=== PATIENT | male | born 1975 | race African-American/Black ===

== ENCOUNTER 2017-08-23 15:35 | Inpatient (IN) ==
[2017-08-23] MEDS ORDERED: SODIUM CHLORIDE 0.9% 500 ML IV STA (17:09)
[2017-08-23] MEDS ORDERED: ONDANSETRON 4 MG/2 ML VIAL IV STA (17:09)
[2017-08-23] MEDS ORDERED: PANTOPRAZOLE 40 MG VIAL IV STA (17:09)
[2017-08-23] MEDS ORDERED: ONDANSETRON 4 MG/2 ML VIAL ONE (17:19)
[2017-08-23] MEDS ORDERED: PANTOPRAZOLE 40 MG VIAL IV ONE (17:20)
[2017-08-23 17:28] LABS: Basophils % 0.3 % (0.0-0.8); Eosinophils % 0.5 % (0.00-10.9); Hematocrit 22.8 VOL% (42.0-52.0); Hemoglobin 6.9 GM/DL (14.0-18.0); Immature Granulocytes % 0.3 %; Immature Granulocytes Absolute 0.02 #; Lymphocytes # 1.9 10*3/uL (1.4-4.0); Lymphocytes % 30.5 % (21.2-54.2); Mean Corpuscular HGB Conc 30.3 GM/DL (32-36); Mean Corpuscular Hemoglobin 26 PG (27-34); Mean Corpuscular Volume 87.4 FL (87-102); Mean Platelet Volume 10.7 FL (9.6-12.0); Monocytes # 0.5 10*3/uL (0.11-0.8); Monocytes % 8.2 % (1.7-12.7); Neutrophils # 3.8 10*3/uL (1.4-7.4); Neutrophils % 60.2 % (38.7-73.9); Platelet Count 146 T/CUMM (130-400); Red Blood Count 2.61 MC/CUMM (3.8-5.5); Red Cell Distribution Width 18.1 % (9.3-17.3); White Blood Count 6.3 T/CUMM (4-12)
[2017-08-23 17:35] LABS: INR 1.2; PT Patient Result 12.7 SECS
[2017-08-23 18:03] LABS: Alanine Aminotransferase 16 U/L (16-61); Albumin 3.7 G/DL (3.4-5.0); Alkaline Phosphatase 102 U/L (45-117); Aspartate Amino Transferase 52 U/L (0-37); Blood Urea Nitrogen 24 MG/DL (7-18); Calcium 8.5 MG/DL (8.5-10.1); Glucose 99 MG/DL (74-106); Osmolality,Calculated 271.2 MOS/KG (273-304); Potassium 4.4 MMOL/L (3.5-5.1); Sodium 134 MMOL/L (136-145); Troponin I Only < 0.015 NG/ML (0.00-0.045)
[2017-08-23 18:09] LABS: Ammonia 33 UMOL/L (11-32)
[2017-08-23] MEDS ORDERED: THIAMINE INJ 100 MG, FOLIC ACID INJ 1 MG, MULTIVITAMIN INJ 10 ML in SODIUM CHLORIDE 0.9... IV ONE (18:57)
[2017-08-23] MEDS ORDERED: ONDANSETRON 4 MG/2 ML VIAL IV PRN (19:09)
[2017-08-23] MEDS ORDERED: ACETAMINOPHEN 325 MG TABLET PO PRN (19:09)
[2017-08-23] MEDS ORDERED: LORazepam 2 MG/1 ML VIAL IV PRN (19:19)
[2017-08-23] MEDS ORDERED: SODIUM CHLORIDE 0.9% 1,000 ML IV SCH (19:30)
[2017-08-23] MEDS ORDERED: SODIUM CHLORIDE 0.9% 1,000 ML IV PRN (19:38)
[2017-08-23 19:51] LABS: % Iron Saturation 47.2 % (18-50); Ferritin 17.2 ng/ml (26-388)
[2017-08-23 20:10] LABS: Thyroid Stimulating Hormone 1.35 uIU/ml (0.358-3.74)
[2017-08-23 20:14] LABS: Folate 13.7 NG/ML (5.4-24.0)
[2017-08-23] MEDS: OCTREOTIDE 500 MCG in SODIUM CHLORIDE 0.9% 100 ML IV SCH (21:45)
[2017-08-23] MEDS: PANTOPRAZOLE 40 MG VIAL IV SCH (23:10)
[2017-08-24] MEDS: OCTREOTIDE 500 MCG in SODIUM CHLORIDE 0.9% 100 ML IV SCH ×2 (07:09→17:09)
[2017-08-24 07:23] LABS: Hematocrit 28.3 VOL% (42.0-52.0)
[2017-08-24 08:02] LABS: Albumin 3.1 G/DL (3.4-5.0); Bilirubin,Total 4.1 MG/DL (0.2-1.0); Calcium 8.2 MG/DL (8.5-10.1); Osmolality,Calculated 274.8 MOS/KG (273-304); Potassium 4.1 MMOL/L (3.5-5.1); Risk Ratio 2.48; Total Protein 7.2 G/DL (6.4-8.3)
[2017-08-24] MEDS: PANTOPRAZOLE 40 MG VIAL IV SCH ×2 (08:43→20:28)
[2017-08-24] MEDS ORDERED: THIAMINE INJ 100 MG, FOLIC ACID INJ 1 MG in SODIUM CHLORIDE 0.9% 1,000 ML IV SCH (09:00)
[2017-08-24] MEDS ORDERED: INFLUENZA VIRUS VACCINE 0.5 ML SYRINGE IM ONE (09:00)
[2017-08-24] MEDS: THIAMINE INJ 100 MG, FOLIC ACID INJ 1 MG in SODIUM CHLORIDE 0.9% 1,000 ML IV SCH (10:28)
[2017-08-24 13:55] LABS: Hematocrit 30.1 VOL% (42.0-52.0); Hemoglobin 9.5 GM/DL (14.0-18.0)
[2017-08-24] MEDS ORDERED: HYDROmorphone 2 MG/1 ML VIAL IV PRN (15:46)
[2017-08-24] MEDS ORDERED: traMADol 50 MG TABLET PO PRN (17:46)
[2017-08-25] MEDS: OCTREOTIDE 500 MCG in SODIUM CHLORIDE 0.9% 100 ML IV SCH (03:19)
[2017-08-25 06:41] LABS: Albumin 3.2 G/DL (3.4-5.0); Bilirubin,Total 2.8 MG/DL (0.2-1.0); Calcium 8.3 MG/DL (8.5-10.1); Osmolality,Calculated 271.8 MOS/KG (273-304); Potassium 3.8 MMOL/L (3.5-5.1); Total Protein 7.2 G/DL (6.4-8.3)
[2017-08-25] MEDS: PANTOPRAZOLE 40 MG VIAL IV SCH ×2 (08:53→21:25)
[2017-08-25 09:16] LABS: Hematocrit 31.4 VOL% (42.0-52.0); Hemoglobin 10.2 GM/DL (14.0-18.0)
[2017-08-25] MEDS: THIAMINE INJ 100 MG, FOLIC ACID INJ 1 MG in SODIUM CHLORIDE 0.9% 1,000 ML IV SCH (10:01)
[2017-08-25] MEDS ORDERED: LIDOCAINE 2% 5 ML VIAL ONE (13:22)
[2017-08-26] MEDS: PANTOPRAZOLE 40 MG VIAL IV SCH (08:59)
[2017-08-26 09:08] VITALS: BP 111/56
== END 2017-08-26 15:10 | disposition home or self-care (01) | DRG 432 ==
LOC: N.ED 15:35 → N.EDINP 19:09 → N.CC 19:22 → N.4E 08-24 14:08
PROVIDERS: ADMIT Internal Medicine; ATTEND Internal Medicine
PROC: EGDWEBL (ICD-10-PCS; 2017-08-24 11:00)

== ENCOUNTER 2017-11-16 11:02 | Inpatient (IN) ==
[2017-11-16] MEDS ORDERED: PANTOPRAZOLE INJ 80 MG in SODIUM CHLORIDE 0.9% 100 ML IV STA (11:18)
[2017-11-16] MEDS ORDERED: SODIUM CHLORIDE 0.9% 1,000 ML IV STA (11:18)
[2017-11-16] MEDS ORDERED: THIAMINE INJ 100 MG, FOLIC ACID INJ 1 MG, MAGNESIUM SULF INJ 2 GM, MULTIVITAMIN INJ 10 ... IV ONE (11:23)
[2017-11-16 11:41] LABS: Eosinophils % 0.1 % (0.00-10.9); Immature Granulocytes % 0.7 %; Immature Granulocytes Absolute 0.05 #; Neutrophils # 5.4 10*3/uL (1.4-7.4)
[2017-11-16 11:46] LABS: Basophils % 0.4 % (0.0-0.8); Hematocrit 20.6 VOL% (42.0-52.0); INR 1.3; Lymphocytes # 1.1 10*3/uL (1.4-4.0); Lymphocytes % 15.3 % (21.2-54.2); Mean Corpuscular Hemoglobin 30 PG (27-34); Monocytes # 0.7 10*3/uL (0.11-0.8); Monocytes % 9.2 % (1.7-12.7); Neutrophils % 74.3 % (38.7-73.9); PT Patient Result 13.5 SECS; Platelet Count 111 T/CUMM (130-400); Red Blood Count 2.34 MC/CUMM (3.8-5.5); Red Cell Distribution Width 25.9 % (9.3-17.3); White Blood Count 7.3 T/CUMM (4-12)
[2017-11-16 11:55] LABS: Bilirubin,Total 3.9 MG/DL (0.2-1.0); Calcium 7.9 MG/DL (8.5-10.1); Osmolality,Calculated 281.4 MOS/KG (273-304); Potassium 4.4 MMOL/L (3.5-5.1); Total Protein 7.8 G/DL (6.4-8.3)
[2017-11-16 12:03] LABS: Hypochromasia 1+
[2017-11-16 12:04] LABS: Giant Platelets Few; Platelet Estimate Decreased
[2017-11-16] MEDS ORDERED: ALBUTEROL 2.5 MG/3 ML NEB RESP TX PRN (13:19)
[2017-11-16] MEDS ORDERED: ONDANSETRON 4 MG/2 ML VIAL IV PRN (13:19)
[2017-11-16] MEDS: PANTOPRAZOLE 40 MG VIAL IV SCH (13:48)
[2017-11-16] MEDS ORDERED: SODIUM CHLORIDE 0.9% 1,000 ML IV PRN (13:49)
[2017-11-16] MEDS ORDERED: MAGNESIUM SULF RIDER 2 GM in PREMIX 1 EACH IV ONE (13:58)
[2017-11-16] MEDS ORDERED: LORazepam 2 MG/1 ML VIAL IV PRN (13:59)
[2017-11-16] MEDS: LACTATED RINGERS 1,000 ML IV SCH ×2 (15:15→23:16)
[2017-11-16] MEDS: OCTREOTIDE 500 MCG in SODIUM CHLORIDE 0.9% 100 ML IV SCH (16:56)
[2017-11-16 19:49] LABS: Hematocrit 18.9 VOL% (42.0-52.0)
[2017-11-16 19:54] LABS: Hemoglobin 5.9 GM/DL (14.0-18.0)
[2017-11-16] MEDS: chlordiazePOXIDE 10 MG CAPSULE PO PRN (21:45)
[2017-11-17] MEDS: OCTREOTIDE 500 MCG in SODIUM CHLORIDE 0.9% 100 ML IV SCH ×2 (02:49→14:52)
[2017-11-17 03:12] LABS: Basophils % 0.6 % (0.0-0.8); Eosinophils % 0.3 % (0.00-10.9); Hematocrit 22.4 VOL% (42.0-52.0); Hemoglobin 7.4 GM/DL (14.0-18.0); Immature Granulocytes % 0.4 %; Immature Granulocytes Absolute 0.03 #; Lymphocytes # 1.5 10*3/uL (1.4-4.0); Lymphocytes % 21.7 % (21.2-54.2); Mean Corpuscular Hemoglobin 30 PG (27-34); Mean Corpuscular Volume 90.7 FL (87-102); Mean Platelet Volume 10.4 FL (9.6-12.0); Monocytes # 0.8 10*3/uL (0.11-0.8); Monocytes % 11.1 % (1.7-12.7); Neutrophils # 4.5 10*3/uL (1.4-7.4); Neutrophils % 65.9 % (38.7-73.9); Platelet Count 85 T/CUMM (130-400); Red Blood Count 2.47 MC/CUMM (3.8-5.5); Red Cell Distribution Width 22.5 % (9.3-17.3); White Blood Count 6.9 T/CUMM (4-12)
[2017-11-17 03:18] LABS: INR 1.2; PT Patient Result 12.7 SECS
[2017-11-17 03:34] LABS: Albumin 2.7 G/DL (3.4-5.0); Bilirubin,Total 4.5 MG/DL (0.2-1.0); Calcium 7.7 MG/DL (8.5-10.1); Osmolality,Calculated 273.8 MOS/KG (273-304); Potassium 4.4 MMOL/L (3.5-5.1); Total Protein 7.2 G/DL (6.4-8.3)
[2017-11-17] MEDS ORDERED: SODIUM CHLORIDE 0.9% 1,000 ML IV PRN (03:37)
[2017-11-17 03:50] LABS: Hypochromasia 2+; Microcytosis 2+; Platelet Estimate Decreased; Polychromasia Slight
[2017-11-17 03:51] LABS: Target Cells Few
[2017-11-17] MEDS: THIAMINE 200 MG/2 ML VIAL IV SCH (09:49)
[2017-11-17] MEDS: chlordiazePOXIDE 10 MG CAPSULE PO PRN (09:50)
[2017-11-17] MEDS ORDERED: PROPOFOL 200 MG/20 ML VIAL IV ONE (10:00)
[2017-11-17] MEDS ORDERED: LIDOCAINE 100 MG/5 ML SYRINGE ONE (10:00)
[2017-11-17] MEDS ORDERED: diphenhydrAMINE CAP 25 MG CAPSULE PO ONE (10:54)
[2017-11-17] MEDS: LACTATED RINGERS 1,000 ML IV SCH ×2 (11:50→15:00)
[2017-11-17] MEDS ORDERED: GLYCOPYRROLATE 0.4 MG/2 ML VIAL ONE (12:41)
[2017-11-17] MEDS ORDERED: fentaNYL 100 MCG/2 ML VIAL ONE (12:41)
[2017-11-17 14:33] LABS: Hematocrit 27.4 VOL% (42.0-52.0); Hemoglobin 9.3 GM/DL (14.0-18.0)
[2017-11-17] MEDS: PANTOPRAZOLE 40 MG VIAL IV SCH (14:53)
[2017-11-17 20:19] LABS: Hematocrit 27.8 VOL% (42.0-52.0); Hemoglobin 9.5 GM/DL (14.0-18.0)
[2017-11-18] MEDS: OCTREOTIDE 500 MCG in SODIUM CHLORIDE 0.9% 100 ML IV SCH ×2 (01:50→12:17)
[2017-11-18] MEDS: LACTATED RINGERS 1,000 ML IV SCH ×2 (01:50→10:57)
[2017-11-18 05:50] LABS: Basophils # 0.1 10*3/uL (0.0-0.2); Basophils % 0.8 % (0.0-0.8); Eosinophils # 0.2 10*3/uL (0.0-0.87); Eosinophils % 2.3 % (0.00-10.9); Hematocrit 29.6 VOL% (42.0-52.0); Hemoglobin 9.8 GM/DL (14.0-18.0); Immature Granulocytes % 0.4 %; Immature Granulocytes Absolute 0.03 #; Lymphocytes # 1.3 10*3/uL (1.4-4.0); Lymphocytes % 17.5 % (21.2-54.2); Mean Corpuscular HGB Conc 33.1 GM/DL (32-36); Mean Corpuscular Hemoglobin 29 PG (27-34); Mean Corpuscular Volume 88.4 FL (87-102); Mean Platelet Volume 10.4 FL (9.6-12.0); Monocytes # 0.7 10*3/uL (0.11-0.8); Neutrophils # 5.1 10*3/uL (1.4-7.4); Platelet Count 109 T/CUMM (130-400); Red Blood Count 3.35 MC/CUMM (3.8-5.5); Red Cell Distribution Width 22.5 % (9.3-17.3); White Blood Count 7.4 T/CUMM (4-12)
[2017-11-18 06:28] LABS: Anisocytosis 1+; Hypochromasia 1+; Microcytosis 1+; Platelet Estimate Decreased
[2017-11-18 06:30] LABS: Albumin 2.8 G/DL (3.4-5.0); Bilirubin,Total 6.6 MG/DL (0.2-1.0); Calcium 8.7 MG/DL (8.5-10.1); Potassium 4.1 MMOL/L (3.5-5.1); Total Protein 7.6 G/DL (6.4-8.3)
[2017-11-18] MEDS: THIAMINE 200 MG/2 ML VIAL IV SCH (09:37)
[2017-11-18] MEDS: chlordiazePOXIDE 10 MG CAPSULE PO PRN ×2 (09:37→18:41)
[2017-11-18 12:47] LABS: Hematocrit 35.9 VOL% (42.0-52.0)
[2017-11-18 13:04] LABS: Hemoglobin 12.2 GM/DL (14.0-18.0)
[2017-11-18] MEDS: PANTOPRAZOLE 40 MG VIAL IV SCH (14:32)
[2017-11-18] MEDS ORDERED: ACETAMINOPHEN 325 MG TABLET PO PRN (21:49)
[2017-11-19 06:05] LABS: Basophils # 0.1 10*3/uL (0.0-0.2); Basophils % 0.7 % (0.0-0.8); Eosinophils # 0.2 10*3/uL (0.0-0.87); Eosinophils % 2.4 % (0.00-10.9); Hematocrit 28.5 VOL% (42.0-52.0); Hemoglobin 9.6 GM/DL (14.0-18.0); Immature Granulocytes % 0.4 %; Immature Granulocytes Absolute 0.03 #; Lymphocytes # 1.5 10*3/uL (1.4-4.0); Lymphocytes % 21.1 % (21.2-54.2); Mean Corpuscular HGB Conc 33.7 GM/DL (32-36); Mean Corpuscular Hemoglobin 30 PG (27-34); Monocytes # 0.9 10*3/uL (0.11-0.8); Monocytes % 12.8 % (1.7-12.7); Neutrophils # 4.5 10*3/uL (1.4-7.4); Neutrophils % 62.6 % (38.7-73.9); Platelet Count 129 T/CUMM (130-400); Red Blood Count 3.24 MC/CUMM (3.8-5.5); Red Cell Distribution Width 23.3 % (9.3-17.3); White Blood Count 7.2 T/CUMM (4-12)
[2017-11-19 06:40] LABS: Albumin 2.9 G/DL (3.4-5.0); Bilirubin,Total 5.9 MG/DL (0.2-1.0); Calcium 8.5 MG/DL (8.5-10.1); Osmolality,Calculated 271.8 MOS/KG (273-304); Potassium 3.8 MMOL/L (3.5-5.1); Total Protein 7.6 G/DL (6.4-8.3)
[2017-11-19 07:30] LABS: Platelet Estimate Decreased
[2017-11-19] MEDS: THIAMINE 200 MG/2 ML VIAL IV SCH (09:03)
[2017-11-19 11:49] VITALS: BP 106/70
[2017-11-19] MEDS: PANTOPRAZOLE 40 MG VIAL IV SCH (14:54)
== END 2017-11-19 13:50 | disposition home or self-care (01) | DRG 432 ==
LOC: EDUNIT# → EDBD → N.ED 11:02 → N.EDINP 12:59 → N.CC 15:15 → N.5E 11-18 12:13
PROVIDERS: ADMIT Family Medicine; ATTEND Family Medicine
PROC: EGDWEBL (ICD-10-PCS; 2017-11-17 13:50)

== ENCOUNTER 2018-11-24 18:54 | Inpatient (IN) ==
[2018-11-24] MEDS ORDERED: LORazepam 2 MG/1 ML VIAL ONE (19:12)
[2018-11-24] MEDS ORDERED: DIPH/TET/ACEL PERT BOOSTER VACCINE 0.5 ML VIAL IM ONE (19:25)
[2018-11-24] MEDS ORDERED: SODIUM CHLORIDE 0.9% 500 ML IV STA (19:25)
[2018-11-24 19:45] LABS: Basophils % 0.3 % (0.0-0.8); Eosinophils # 0.1 10*3/uL (0.0-0.87); Eosinophils % 0.5 % (0.00-10.9); Hematocrit 30.3 VOL% (42.0-52.0); Immature Granulocytes % 0.4 %; Immature Granulocytes Absolute 0.05 #; Lymphocytes # 4.3 10*3/uL (1.4-4.0); Mean Corpuscular HGB Conc 27.4 GM/DL (32-36); Mean Corpuscular Volume 91.5 FL (87-102); Monocytes % 8.5 % (1.7-12.7); Neutrophils % 54.3 % (38.7-73.9); Platelet Count 102 T/CUMM (130-400); Red Blood Count 3.31 MC/CUMM (3.8-5.5); Red Cell Distribution Width 24.4 % (9.3-17.3); White Blood Count 11.9 T/CUMM (4-12)
[2018-11-24 19:46] LABS: Hemoglobin 8.3 GM/DL (14.0-18.0)
[2018-11-24] MEDS ORDERED: THIAMINE INJ 100 MG, FOLIC ACID INJ 1 MG, MAGNESIUM SULF INJ 2 GM, MULTIVITAMIN INJ 10 ... IV ONE (19:53)
[2018-11-24 19:55] LABS: INR 1.3; PT Patient Result 14.1 SECS
[2018-11-24 20:03] LABS: Albumin 3.7 G/DL (3.4-5.0); Bilirubin,Total 2.4 MG/DL (0.2-1.0); Calcium 8.7 MG/DL (8.5-10.1); Osmolality,Calculated 269.8 MOS/KG (273-304); Total Protein 9.5 G/DL (6.4-8.3)
[2018-11-24] MEDS ORDERED: ONDANSETRON 4 MG/2 ML VIAL IV PRN (21:12)
[2018-11-24] MEDS ORDERED: NICOTINE 21 MG/24 HR PATCH TRANSDERM PRN (21:12)
[2018-11-24] MEDS ORDERED: ACETAMINOPHEN 325 MG TABLET PO PRN (21:12)
[2018-11-24] MEDS ORDERED: LORazepam 2 MG/1 ML VIAL IV PRN (21:12)
[2018-11-24] MEDS ORDERED: MORPHINE 4 MG/1 ML VIAL IV PRN (21:12)
[2018-11-24] MEDS ORDERED: chlordiazePOXIDE 25 MG CAPSULE PO PRN (21:12)
[2018-11-24] MEDS ORDERED: THIAMINE INJ 100 MG, FOLIC ACID INJ 1 MG, MULTIVITAMIN INJ 10 ML in SODIUM CHLORIDE 0.9... IV ONE (22:00)
[2018-11-24 22:33] LABS: Apearance,Urine CLEAR (Clear); Bilirubin,Urine Negative (Negative); Blood, Urine Negative (Negative); Glucose,Urine (UA) Negative (Negative); Ketones,Urine Negative (Negative); Mucus,Urine Occasional /LPF (Occasional); Nitrite,Urine Negative (Negative); Protein,Urine 30 MG/DL; RBC,Urine 2 /HPF (0-4); Sperm,Urine Occasional /HPF (Negative); Urine Color Yellow (Yellow); Urine Specific Gravity 1.011 (1.001-1.035); WBC,Urine 1 /HPF (0-6)
[2018-11-24 23:06] LABS: Barbiturates Screen,Urine Negative (Negative); Benzodiazepines Screen,Urine Negative (Negative); Cannabinoid Screen,Urine Negative (Negative); Opiate Screen,Urine Negative (Negative); Phencyclidine Screen,Urine Negative (Negative)
[2018-11-24] MEDS: SODIUM CHLORIDE 0.9% 1,000 ML IV SCH (23:28)
[2018-11-25] MEDS: SODIUM CHLORIDE 0.9% 1,000 ML IV SCH ×3 (06:30→16:33)
[2018-11-25] MEDS: levETIRAcetam 500 MG TABLET PO SCH (20:19)
[2018-11-25] MEDS: SODIUM CHLORIDE 1 GM TABLET PO SCH (20:19)
[2018-11-25] MEDS: CHLORHEXIDINE 0.12% ORAL RINSE 60 ML BOTTLE SWISH/SPIT SCH (20:19)
[2018-11-25] MEDS ORDERED: LEVETIRACETAM 1500 MG PO SCH (21:00)
[2018-11-25] MEDS ORDERED: THIAMINE INJ 100 MG, FOLIC ACID INJ 1 MG, MULTIVITAMIN INJ 10 ML in SODIUM CHLORIDE 0.9... IV ONE (21:00)
[2018-11-26] MEDS: SODIUM CHLORIDE 0.9% 1,000 ML IV SCH ×2 (00:53→06:34)
[2018-11-26 03:54] LABS: Basophils % 0.4 % (0.0-0.8); Eosinophils % 0.7 % (0.00-10.9); Hematocrit 25.4 VOL% (42.0-52.0); Hemoglobin 7.5 GM/DL (14.0-18.0); Immature Granulocytes % 0.4 %; Immature Granulocytes Absolute 0.02 #; Lymphocytes # 1.6 10*3/uL (1.4-4.0); Lymphocytes % 27.8 % (21.2-54.2); Mean Corpuscular HGB Conc 29.5 GM/DL (32-36); Mean Corpuscular Volume 86.4 FL (87-102); Mean Platelet Volume 10.2 FL (9.6-12.0); Monocytes % 7.9 % (1.7-12.7); Neutrophils % 62.8 % (38.7-73.9); Red Blood Count 2.94 MC/CUMM (3.8-5.5); White Blood Count 5.7 T/CUMM (4-12)
[2018-11-26 03:57] LABS: Platelet Count 63 T/CUMM (130-400)
[2018-11-26 04:18] LABS: Calcium 8.6 MG/DL (8.5-10.1); Osmolality,Calculated 274.5 MOS/KG (273-304)
[2018-11-26 04:54] LABS: Hypochromasia 2+; Platelet Estimate Decreased; Polychromasia Few
[2018-11-26] MEDS ORDERED: FOLIC ACID 1 MG TABLET PO SCH (09:00)
[2018-11-26] MEDS ORDERED: THIAMINE 100 MG TABLET PO SCH (09:00)
[2018-11-26] MEDS: SODIUM CHLORIDE 1 GM TABLET PO SCH (09:15)
[2018-11-26] MEDS: levETIRAcetam 500 MG TABLET PO SCH (09:15)
[2018-11-26] MEDS: CHLORHEXIDINE 0.12% ORAL RINSE 60 ML BOTTLE SWISH/SPIT SCH (09:15)
[2018-11-26 11:16] VITALS: BP 108/69
== END 2018-11-26 12:53 | disposition left against medical advice (07) | DRG 100 ==
LOC: EDUNIT# → EDBD → N.ED 18:54 → N.EDINP 21:12 → N.CC 22:06 → N.5E 11-26 10:47
PROVIDERS: ADMIT Internal Medicine; ATTEND Internal Medicine

== ENCOUNTER 2019-09-25 12:37 | Inpatient (IN) ==
[2019-09-25] MEDS ORDERED: levETIRAcetam 500 MG/5 ML VIAL IV ONE ×2 (12:57→12:59)
[2019-09-25 13:29] LABS: Eosinophils # 0.1 10*3/uL (0.0-0.87); Eosinophils % 0.5 % (0.00-10.9); Mean Corpuscular Volume 99.6 FL (87-102); Platelet Count 70 T/CUMM (130-400); Red Cell Distribution Width 22.1 % (9.3-17.3)
[2019-09-25 13:34] LABS: Basophils # 0.1 10*3/uL (0.0-0.2); Basophils % 0.4 % (0.0-0.8); Hematocrit 23.3 VOL% (42.0-52.0); Immature Granulocytes % 1.2 %; Immature Granulocytes Absolute 0.14 #; Lymphocytes # 3.6 10*3/uL (1.4-4.0); Lymphocytes % 32.3 % (21.2-54.2); Mean Corpuscular HGB Conc 26.2 GM/DL (32-36); Mean Platelet Volume 12.1 FL (9.6-12.0); Monocytes % 5.2 % (1.7-12.7); NRBC # 0.02 10*3/uL; Neutrophils % 60.4 % (38.7-73.9); Red Blood Count 2.34 MC/CUMM (3.8-5.5); White Blood Count 11.3 T/CUMM (4-12)
[2019-09-25 13:53] LABS: Hemoglobin 6.1 GM/DL (14.0-18.0)
[2019-09-25 13:55] LABS: Calcium 8.8 MG/DL (8.5-10.1); Osmolality,Calculated 268.2 MOS/KG (273-304)
[2019-09-25 14:19] LABS: % Iron Saturation 12.7 % (18-50); Ferritin 14.3 ng/ml (26-388)
[2019-09-25 14:27] LABS: Folate 12.9 NG/ML (5.4-24.0)
[2019-09-25 14:41] LABS: Anisocytosis 1+; Hypochromasia 2+; Microcytosis 2+; Ovalocytes Few; Polychromasia 1+
[2019-09-25 14:42] LABS: Platelet Estimate Decreased
[2019-09-25 14:55] LABS: Barbiturates Screen,Urine Negative (Negative); Benzodiazepines Screen,Urine Negative (Negative); Cannabinoid Screen,Urine Negative (Negative); Opiate Screen,Urine Negative (Negative); Phencyclidine Screen,Urine Negative (Negative)
[2019-09-25] MEDS ORDERED: LORazepam 2 MG/1 ML VIAL IV PRN (15:00)
[2019-09-25] MEDS ORDERED: THIAMINE 200 MG/2 ML VIAL IV ONE (15:03)
[2019-09-25] MEDS ORDERED: ACETAMINOPHEN 325 MG TABLET PO PRN (15:04)
[2019-09-25] MEDS ORDERED: ONDANSETRON 4 MG/2 ML VIAL IV PRN (15:04)
[2019-09-25] MEDS ORDERED: SODIUM CHLORIDE 0.9% 1,000 ML IV PRN (15:10)
[2019-09-25] MEDS: MULTIVITAMIN (CENTRUM) TABLET PO SCH (16:54)
[2019-09-25] MEDS: FOLIC ACID 1 MG TABLET PO SCH (16:54)
[2019-09-25] MEDS: SODIUM CHLORIDE 0.9% 1,000 ML IV SCH (16:54)
[2019-09-25] MEDS: levETIRAcetam 500 MG TABLET PO SCH (21:36)
[2019-09-25] MEDS: PANTOPRAZOLE 40 MG VIAL IV SCH (21:36)
[2019-09-25] MEDS: chlordiazePOXIDE 25 MG CAPSULE PO SCH (21:36)
[2019-09-26] MEDS ORDERED: diphenhydrAMINE CAP 25 MG CAPSULE PO PRN (04:55)
[2019-09-26] MEDS: SODIUM CHLORIDE 0.9% 1,000 ML IV SCH ×2 (05:14→20:25)
[2019-09-26 05:25] LABS: Basophils % 0.4 % (0.0-0.8); Eosinophils % 0.2 % (0.00-10.9); Hematocrit 25.3 VOL% (42.0-52.0); Hemoglobin 7.9 GM/DL (14.0-18.0); Immature Granulocytes % 0.4 %; Immature Granulocytes Absolute 0.02 #; Lymphocytes # 0.8 10*3/uL (1.4-4.0); Lymphocytes % 17.2 % (21.2-54.2); Mean Corpuscular HGB Conc 31.2 GM/DL (32-36); Mean Corpuscular Volume 88.5 FL (87-102); Monocytes % 6.8 % (1.7-12.7); Red Blood Count 2.86 MC/CUMM (3.8-5.5); White Blood Count 4.5 T/CUMM (4-12)
[2019-09-26 05:26] LABS: Platelet Count 33 T/CUMM (130-400)
[2019-09-26 05:32] LABS: Albumin 3.5 G/DL (3.4-5.0); Bilirubin,Total 4.8 MG/DL (0.2-1.0); Calcium 8.8 MG/DL (8.5-10.1); Osmolality,Calculated 263.4 MOS/KG (273-304); Total Protein 8.5 G/DL (6.4-8.3)
[2019-09-26 05:49] LABS: Hypochromasia 1+
[2019-09-26 05:50] LABS: Microcytosis 2+; Platelet Estimate Decreased; Polychromasia Slight; Target Cells Slight
[2019-09-26] MEDS: FOLIC ACID 1 MG TABLET PO SCH (10:05)
[2019-09-26] MEDS: THIAMINE 100 MG TABLET PO SCH (10:05)
[2019-09-26] MEDS: chlordiazePOXIDE 25 MG CAPSULE PO SCH ×3 (10:05→20:26)
[2019-09-26] MEDS: levETIRAcetam 500 MG TABLET PO SCH ×2 (10:05→20:26)
[2019-09-26] MEDS: MULTIVITAMIN (CENTRUM) TABLET PO SCH (10:05)
[2019-09-26] MEDS: PANTOPRAZOLE 40 MG VIAL IV SCH ×2 (10:06→20:26)
[2019-09-26] MEDS ORDERED: SODIUM CHLORIDE 0.9% 1,000 ML IV PRN (11:07)
[2019-09-26 11:25] LABS: Hematocrit 26.4 VOL% (42.0-52.0); Hemoglobin 8.1 GM/DL (14.0-18.0)
[2019-09-26] MEDS: HALOPERIDOL 5 MG/ML AMP IM PRN ×2 (11:46→17:40)
[2019-09-26 12:10] LABS: INR 1.3; PT Patient Result 13.3 SECS (9.8-11.9)
[2019-09-26 12:22] LABS: Hepatitis B Core IgM Quant 0.21 Index; Hepatitis B Surface Ag Result Negative (Negative); Hepatitis C Virus Ab Quant 0.25 Index; Hepatitis C Virus Ab Result Negative (Negative)
[2019-09-26 19:34] LABS: Hematocrit 23.6 VOL% (42.0-52.0); Hemoglobin 7.1 GM/DL (14.0-18.0)
[2019-09-27] MEDS: chlordiazePOXIDE 25 MG CAPSULE PO SCH ×2 (03:25→11:16)
[2019-09-27 05:53] LABS: Basophils % 0.2 % (0.0-0.8); Eosinophils # 0.1 10*3/uL (0.0-0.87); Eosinophils % 0.9 % (0.00-10.9); Hematocrit 22.9 VOL% (42.0-52.0); Hemoglobin 7.1 GM/DL (14.0-18.0); Immature Granulocytes % 0.5 %; Immature Granulocytes Absolute 0.03 #; Lymphocytes # 0.9 10*3/uL (1.4-4.0); Lymphocytes % 16.5 % (21.2-54.2); Mean Corpuscular Volume 89.5 FL (87-102); Monocytes % 8.4 % (1.7-12.7); Neutrophils % 73.5 % (38.7-73.9); Red Blood Count 2.56 MC/CUMM (3.8-5.5); White Blood Count 5.5 T/CUMM (4-12)
[2019-09-27 06:04] LABS: Platelet Count 35 T/CUMM (130-400)
[2019-09-27 06:17] LABS: Hypochromasia 2+; Microcytosis 1+; Platelet Estimate Decreased
[2019-09-27 06:26] LABS: Calcium 8.4 MG/DL (8.5-10.1); Osmolality,Calculated 277.5 MOS/KG (273-304)
[2019-09-27] MEDS: SODIUM CHLORIDE 0.9% 1,000 ML IV SCH (06:31)
[2019-09-27] MEDS ORDERED: LACTATED RINGERS 1,000 ML IV SCH (08:00)
[2019-09-27] MEDS ORDERED: LIDOCAINE 2% 5 ML VIAL ONE (09:00)
[2019-09-27] MEDS ORDERED: LACTULOSE 20 GM/30 ML UDCUP PO SCH (09:00)
[2019-09-27] MEDS ORDERED: propofoL 200 MG/20 ML VIAL IV ONE (09:00)
[2019-09-27] MEDS: MULTIVITAMIN (CENTRUM) TABLET PO SCH (09:12)
[2019-09-27] MEDS: THIAMINE 100 MG TABLET PO SCH (09:13)
[2019-09-27] MEDS: FOLIC ACID 1 MG TABLET PO SCH (09:13)
[2019-09-27] MEDS: levETIRAcetam 500 MG TABLET PO SCH ×2 (09:23→21:22)
[2019-09-27] MEDS: PANTOPRAZOLE 40 MG VIAL IV SCH ×2 (09:23→21:20)
[2019-09-27 13:40] LABS: Hematocrit 24.9 VOL% (42.0-52.0); Hemoglobin 7.5 GM/DL (14.0-18.0)
[2019-09-27] MEDS ORDERED: BISACODYL 5 MG TABLET PO ONE (14:00)
[2019-09-27] MEDS: LORazepam 2 MG/1 ML VIAL IV PRN (17:16)
[2019-09-27] MEDS ORDERED: POLYETHYLENE GLYCOL POWDER 255 GM BOTTLE PO ONE (18:00)
[2019-09-27] MEDS ORDERED: LORazepam 2 MG/1 ML VIAL IV ONE (18:34)
[2019-09-27 20:08] LABS: Hematocrit 24.2 VOL% (42.0-52.0); Hemoglobin 7.4 GM/DL (14.0-18.0)
[2019-09-28] MEDS: SODIUM CHLORIDE 0.9% 1,000 ML IV SCH ×2 (01:46→12:18)
[2019-09-28] MEDS: LORazepam 2 MG/1 ML VIAL IV PRN ×3 (03:28→12:47)
[2019-09-28 05:38] LABS: Hemoglobin 7.1 GM/DL (14.0-18.0)
[2019-09-28 05:42] LABS: INR 1.3; PT Patient Result 13.6 SECS (9.8-11.9)
[2019-09-28] MEDS ORDERED: MAGNESIUM CITRATE 300 ML BOTTLE PO ONE (06:00)
[2019-09-28 08:24] LABS: Basophils % 0.4 % (0.0-0.8); Eosinophils # 0.1 10*3/uL (0.0-0.87); Eosinophils % 1.7 % (0.00-10.9); Hematocrit 25.5 VOL% (42.0-52.0); Hemoglobin 7.6 GM/DL (14.0-18.0); Immature Granulocytes % 0.2 %; Immature Granulocytes Absolute 0.01 #; Mean Corpuscular HGB Conc 29.8 GM/DL (32-36); Mean Corpuscular Volume 93.4 FL (87-102); Mean Platelet Volume 10.9 FL (9.6-12.0); Monocytes % 8.5 % (1.7-12.7); Neutrophils % 71.2 % (38.7-73.9); Platelet Count 51 T/CUMM (130-400); Red Blood Count 2.73 MC/CUMM (3.8-5.5); Red Cell Distribution Width 21.3 % (9.3-17.3); White Blood Count 5.4 T/CUMM (4-12)
[2019-09-28 08:37] LABS: Calcium 8.7 MG/DL (8.5-10.1); Osmolality,Calculated 272.7 MOS/KG (273-304)
[2019-09-28] MEDS ORDERED: PHENYLEPHRINE 1 MG/10 ML SYRINGE IV ONE (09:00)
[2019-09-28] MEDS ORDERED: LIDOCAINE 100 MG/5 ML SYRINGE ONE (09:00)
[2019-09-28] MEDS ORDERED: propofoL 200 MG/20 ML VIAL IV ONE (09:00)
[2019-09-28] MEDS: levETIRAcetam 500 MG TABLET PO SCH (11:18)
[2019-09-28] MEDS: MULTIVITAMIN (CENTRUM) TABLET PO SCH (11:18)
[2019-09-28] MEDS: FOLIC ACID 1 MG TABLET PO SCH (11:18)
[2019-09-28] MEDS: THIAMINE 100 MG TABLET PO SCH (11:18)
[2019-09-28] MEDS: PANTOPRAZOLE 40 MG VIAL IV SCH (11:19)
[2019-09-28] MEDS ORDERED: NICOTINE 14 MG/24 HR PATCH TRANSDERM SCH (11:32)
[2019-09-28 12:26] LABS: Hematocrit 24.1 VOL% (42.0-52.0); Hemoglobin 7.2 GM/DL (14.0-18.0)
[2019-09-28 14:27] LABS: Hematocrit 25.1 VOL% (42.0-52.0); Hemoglobin 7.5 GM/DL (14.0-18.0)
[2019-09-28 16:12] VITALS: BP 137/78
== END 2019-09-28 17:10 | disposition home or self-care (01) | DRG 441 ==
LOC: N.ED 12:37 → SUATTDRO 15:04 → N.EDINP 15:04 → N.3E 15:59
PROVIDERS: ADMIT Internal Medicine; ATTEND Internal Medicine

== ENCOUNTER 2019-12-04 18:50 | Inpatient (IN) ==
[2019-12-04 19:54] LABS: Basophils % 0.3 % (0.0-0.8); Hematocrit 23.5 VOL% (42.0-52.0); Hemoglobin 6.7 GM/DL (14.0-18.0); Immature Granulocytes % 0.8 %; Immature Granulocytes Absolute 0.07 #; Lymphocytes # 0.6 10*3/uL (1.4-4.0); Lymphocytes % 6.5 % (21.2-54.2); Mean Corpuscular HGB Conc 28.5 GM/DL (32-36); Mean Corpuscular Volume 83.6 FL (87-102); Mean Platelet Volume 9.7 FL (9.6-12.0); Monocytes % 9.2 % (1.7-12.7); Neutrophils % 83.2 % (38.7-73.9); Platelet Count 155 T/CUMM (130-400); Red Blood Count 2.81 MC/CUMM (3.8-5.5); White Blood Count 9.2 T/CUMM (4-12)
[2019-12-04 20:20] LABS: Albumin 3.4 G/DL (3.4-5.0); Bilirubin,Total 2.4 MG/DL (0.2-1.0); Calcium 8.9 MG/DL (8.5-10.1); Osmolality,Calculated 260.7 MOS/KG (273-304); Total Protein 9.6 G/DL (6.4-8.3)
[2019-12-04] MEDS ORDERED: SODIUM CHLORIDE 0.9% 1,000 ML IV STA (20:49)
[2019-12-05] MEDS ORDERED: GLUCAGON 1 MG VIAL IM PRN ×2 (01:00)
[2019-12-05] MEDS ORDERED: SODIUM CHLORIDE 0.9% 1,000 ML IV PRN (01:00)
[2019-12-05] MEDS ORDERED: ONDANSETRON 4 MG/2 ML VIAL IV PRN (01:00)
[2019-12-05] MEDS ORDERED: SODIUM CHLORIDE 0.9% 1,000 ML IV SCH (01:00)
[2019-12-05] MEDS ORDERED: DEXTROSE 50% 25 GM/50 ML VIAL IV PRN ×2 (01:00)
[2019-12-05 02:32] LABS: % Iron Saturation 6.3 % (18-50); Haptoglobin < 8.0 MG/DL (30-200); Iron 26 UG/DL (65-175); Iron Binding Capacity 411 UG/DL (250-450)
[2019-12-05 02:58] LABS: Apearance,Urine CLEAR (Clear); Bilirubin,Urine Negative (Negative); Blood, Urine Negative (Negative); Glucose,Urine (UA) Negative (Negative); Hyaline Casts,Urine 1 /LPF (0-3); Ketones,Urine Negative (Negative); Mucus,Urine Occasional /LPF (Occasional); Nitrite,Urine Negative (Negative); Protein,Urine Negative; RBC,Urine <1 /HPF (0-4); Urine Color Yellow (Yellow); Urine Specific Gravity 1.009 (1.001-1.035); WBC,Urine <1 /HPF (0-6)
[2019-12-05 06:21] LABS: Basophils % 0.4 % (0.0-0.8); Eosinophils % 0.3 % (0.00-10.9); Hematocrit 25.7 VOL% (42.0-52.0); Hemoglobin 7.6 GM/DL (14.0-18.0); Immature Granulocytes % 0.6 %; Immature Granulocytes Absolute 0.04 #; Lymphocytes % 14.8 % (21.2-54.2); Mean Corpuscular HGB Conc 29.6 GM/DL (32-36); Mean Corpuscular Volume 84.3 FL (87-102); Mean Platelet Volume 9.7 FL (9.6-12.0); Monocytes % 11.5 % (1.7-12.7); Neutrophils % 72.4 % (38.7-73.9); Platelet Count 124 T/CUMM (130-400); Red Blood Count 3.05 MC/CUMM (3.8-5.5); Red Cell Distribution Width 20.7 % (9.3-17.3); White Blood Count 6.9 T/CUMM (4-12)
[2019-12-05 06:34] LABS: INR 1.3; PT Patient Result 13.5 SECS (9.8-11.9); Partial Thromboplastin Time 30.2 SECS (23.9-33.8)
[2019-12-05 06:35] LABS: Albumin 3.2 G/DL (3.4-5.0); Calcium 8.7 MG/DL (8.5-10.1); Osmolality,Calculated 266.2 MOS/KG (273-304)
[2019-12-05 06:39] LABS: Hypochromasia 2+
[2019-12-05 06:40] LABS: Microcytosis 1+; Platelet Estimate Adequate; Target Cells Slight
[2019-12-05] MEDS ORDERED: levETIRAcetam 500 MG/5 ML VIAL IV ONE (08:48)
[2019-12-05] MEDS: levETIRAcetam 500 MG TABLET PO SCH ×2 (08:57→21:05)
[2019-12-05] MEDS: PANTOPRAZOLE 40 MG VIAL IV SCH ×2 (08:57→21:05)
[2019-12-05] MEDS: THIAMINE 200 MG/2 ML VIAL IV SCH (08:57)
[2019-12-05] MEDS: FOLIC ACID INJ 1 MG in SYRINGE 1 EACH IV SCH (09:19)
[2019-12-05 12:55] LABS: Hematocrit 27.4 VOL% (42.0-52.0)
[2019-12-05] MEDS: FERRIC GLUCONATE COMPLEX 125 MG in SODIUM CHLORIDE 0.9% 100 ML IV SCH (15:16)
[2019-12-05] MEDS: chlordiazePOXIDE 25 MG CAPSULE PO SCH ×2 (15:16→21:05)
[2019-12-05 16:51] LABS: Hematocrit 28.3 VOL% (42.0-52.0); Hemoglobin 8.1 GM/DL (14.0-18.0)
[2019-12-05 20:24] LABS: Hematocrit 26.6 VOL% (42.0-52.0); Hemoglobin 7.6 GM/DL (14.0-18.0)
[2019-12-06] MEDS ORDERED: chlordiazePOXIDE 25 MG CAPSULE PO SCH (07:49)
[2019-12-06 08:30] LABS: Basophils % 0.7 % (0.0-0.8); Eosinophils # 0.1 10*3/uL (0.0-0.87); Eosinophils % 1.4 % (0.00-10.9); Hematocrit 28.6 VOL% (42.0-52.0); Hemoglobin 8.3 GM/DL (14.0-18.0); Immature Granulocytes % 0.8 %; Immature Granulocytes Absolute 0.05 #; Lymphocytes # 1.2 10*3/uL (1.4-4.0); Mean Corpuscular Volume 83.9 FL (87-102); Monocytes % 10.9 % (1.7-12.7); Neutrophils % 66.2 % (38.7-73.9); Platelet Count 141 T/CUMM (130-400); Red Blood Count 3.41 MC/CUMM (3.8-5.5); Red Cell Distribution Width 21.1 % (9.3-17.3); White Blood Count 5.9 T/CUMM (4-12)
[2019-12-06 08:49] LABS: Calcium 8.6 MG/DL (8.5-10.1); Osmolality,Calculated 268.1 MOS/KG (273-304)
[2019-12-06] MEDS: levETIRAcetam 500 MG TABLET PO SCH (08:58)
[2019-12-06] MEDS: THIAMINE 200 MG/2 ML VIAL IV SCH (08:59)
[2019-12-06] MEDS: FERRIC GLUCONATE COMPLEX 125 MG in SODIUM CHLORIDE 0.9% 100 ML IV SCH (09:01)
[2019-12-06] MEDS: PANTOPRAZOLE 40 MG VIAL IV SCH (09:01)
[2019-12-06] MEDS: FOLIC ACID INJ 1 MG in SYRINGE 1 EACH IV SCH (09:01)
[2019-12-06 09:17] LABS: Hypochromasia 1+; Platelet Estimate Adequate
[2019-12-06 09:18] LABS: Microcytosis 1+
[2019-12-06 12:24] VITALS: BP 114/68
[2019-12-06 13:32] LABS: Hemoglobin 8.5 GM/DL (14.0-18.0)
== END 2019-12-06 14:35 | disposition home or self-care (01) | DRG 101 ==
LOC: N.ED 18:50 → N.EDINP 23:52 → N.TELEN 12-05 12:25
PROVIDERS: ADMIT Internal Medicine; ATTEND Internal Medicine

== ENCOUNTER 2020-03-14 18:05 | Inpatient (IN) ==
[2020-03-14] MEDS ORDERED: SODIUM CHLORIDE 0.9% 1,000 ML IV STA (18:53)
[2020-03-14 20:00] LABS: Basophils % 0.2 % (0.0-0.8); Hematocrit 21.6 VOL% (42.0-52.0); Immature Granulocytes % 0.9 %; Immature Granulocytes Absolute 0.06 #; Lymphocytes # 0.6 10*3/uL (1.4-4.0); Lymphocytes % 8.7 % (21.2-54.2); Mean Corpuscular HGB Conc 29.6 GM/DL (32-36); Mean Corpuscular Volume 85.4 FL (87-102); Mean Platelet Volume 9.3 FL (9.6-12.0); Monocytes % 6.1 % (1.7-12.7); Neutrophils % 84.1 % (38.7-73.9); Platelet Count 127 T/CUMM (130-400); Red Blood Count 2.53 MC/CUMM (3.8-5.5); Red Cell Distribution Width 21.4 % (9.3-17.3); White Blood Count 6.4 T/CUMM (4-12)
[2020-03-14 20:14] LABS: Alanine Aminotransferase 24 U/L (16-61); Albumin 3.1 G/DL (3.4-5.0); Alkaline Phosphatase 249 U/L (45-117); Aspartate Amino Transferase 130 U/L (0-37); Blood Urea Nitrogen 7 MG/DL (7-18); Calcium 8.9 MG/DL (8.5-10.1); Estimated Glom Filtration Rate 123 ML/MIN; Glucose 95 MG/DL (74-106); Osmolality,Calculated 267.1 MOS/KG (273-304); Total Protein 9.2 G/DL (6.4-8.3)
[2020-03-14 20:17] LABS: Hemoglobin 6.4 GM/DL (14.0-18.0)
[2020-03-14 20:22] LABS: Barbiturates Screen,Urine Negative (Negative); Benzodiazepines Screen,Urine Negative (Negative); Cannabinoid Screen,Urine Negative (Negative); Opiate Screen,Urine Negative (Negative); Phencyclidine Screen,Urine Negative (Negative)
[2020-03-14 20:23] LABS: Bacteria,Urine Occasional /HPF (Few); Bilirubin,Urine Negative (Negative); Blood, Urine Negative (Negative); Glucose,Urine (UA) Negative (Negative); Hyaline Casts,Urine 7 /LPF (0-3); Ketones,Urine Negative (Negative); Mucus,Urine Occasional /LPF (Occasional); Nitrite,Urine Negative (Negative); Protein,Urine Negative; Sperm,Urine Occasional /HPF (Negative); Squamous Epithelial Cell,Urine Occasional /HPF (0-10); Urine Appearance CLEAR (Clear); Urine Color Amber (Yellow); Urine Specific Gravity 1.015 (1.001-1.035)
[2020-03-14] MEDS ORDERED: SODIUM CHLORIDE 0.9% 1,000 ML IV ONE (21:51)
[2020-03-14] MEDS ORDERED: SODIUM CHLORIDE 0.9% 1,000 ML IV PRN (22:57)
[2020-03-14 23:14] LABS: Basophils % 0.3 % (0.0-0.8); Eosinophils # 0.2 10*3/uL (0.0-0.87); Eosinophils % 3.4 % (0.00-10.9); Hematocrit 21.7 VOL% (42.0-52.0); Immature Granulocytes % 1.2 %; Immature Granulocytes Absolute 0.08 #; Lymphocytes # 0.6 10*3/uL (1.4-4.0); Lymphocytes % 9.1 % (21.2-54.2); Mean Corpuscular HGB Conc 29.5 GM/DL (32-36); Mean Corpuscular Volume 85.1 FL (87-102); Mean Platelet Volume 9.4 FL (9.6-12.0); Monocytes % 5.9 % (1.7-12.7); Neutrophils % 80.1 % (38.7-73.9); Platelet Count 129 T/CUMM (130-400); Red Blood Count 2.55 MC/CUMM (3.8-5.5); Red Cell Distribution Width 21.3 % (9.3-17.3); White Blood Count 6.8 T/CUMM (4-12)
[2020-03-14 23:15] LABS: Hemoglobin 6.4 GM/DL (14.0-18.0)
[2020-03-14] MEDS ORDERED: hydrALAZINE 20 MG/1 ML VIAL IV PRN (23:21)
[2020-03-14] MEDS ORDERED: ACETAMINOPHEN 325 MG TABLET PO PRN (23:21)
[2020-03-14] MEDS ORDERED: diphenhydrAMINE CAP 25 MG CAPSULE PO PRN (23:21)
[2020-03-14] MEDS ORDERED: DEXTROSE 50% 25 GM/50 ML VIAL IV PRN (23:21)
[2020-03-14] MEDS ORDERED: GLUCAGON 1 MG VIAL IM PRN (23:21)
[2020-03-14] MEDS ORDERED: guaiFENesin/DM ER 600-30 MG TABLET PO PRN (23:21)
[2020-03-14] MEDS ORDERED: ZALEPLON 5 MG CAPSULE PO PRN (23:21)
[2020-03-14] MEDS ORDERED: ONDANSETRON 4 MG/2 ML VIAL IV PRN (23:21)
[2020-03-14] MEDS ORDERED: MORPHINE 4 MG/1 ML VIAL IV PRN (23:21)
[2020-03-14] MEDS ORDERED: NICOTINE 21 MG/24 HR PATCH TRANSDERM PRN (23:21)
[2020-03-14] MEDS ORDERED: PROMETHAZINE 25 MG TABLET PO PRN (23:21)
[2020-03-14] MEDS ORDERED: THIAMINE INJ 100 MG, FOLIC ACID INJ 1 MG, MAGNESIUM SULF INJ 2 GM, MULTIVITAMIN INJ 10 ... IV ONE (23:30)
[2020-03-15] LABS: Folate 8.7 NG/ML (5.4-24.0); Vitamin B12 796 PG/ML (211-911)
[2020-03-15 00:17] LABS: Sedimentation Rate-Westergren 120 MM/HR (0-15)
[2020-03-15 05:31] LABS: Basophils % 0.5 % (0.0-0.8); Eosinophils % 0.2 % (0.00-10.9); Hematocrit 22.2 VOL% (42.0-52.0); Immature Granulocytes % 0.9 %; Immature Granulocytes Absolute 0.05 #; Lymphocytes # 0.8 10*3/uL (1.4-4.0); Mean Corpuscular HGB Conc 31.5 GM/DL (32-36); Mean Corpuscular Volume 85.4 FL (87-102); Mean Platelet Volume 10.8 FL (9.6-12.0); Monocytes % 7.7 % (1.7-12.7); Neutrophils % 76.7 % (38.7-73.9); Platelet Count 106 T/CUMM (130-400); Red Cell Distribution Width 20.3 % (9.3-17.3); White Blood Count 5.6 T/CUMM (4-12)
[2020-03-15 05:54] LABS: Platelet Estimate Decreased
[2020-03-15 05:55] LABS: Anisocytosis 1+; Hypochromasia 1+; Macrocytosis Slight
[2020-03-15 06:03] LABS: Albumin 2.6 G/DL (3.4-5.0); Bilirubin,Total 5.5 MG/DL (0.2-1.0); Calcium 8.3 MG/DL (8.5-10.1)
[2020-03-15] MEDS ORDERED: ENOXAPARIN 40 MG/0.4 ML SYRINGE SUBCUT SCH (09:00)
[2020-03-15] MEDS: DOCUSATE SODIUM 100 MG CAPSULE PO SCH ×2 (09:05→20:46)
[2020-03-15] MEDS: PANTOPRAZOLE 40 MG TABLET PO SCH (09:05)
[2020-03-15 11:10] LABS: Hemoglobin A1 (Alkaline) 97.5 % (96.5-98.5); Hemoglobin A2 (Alkaline) 2.5 % (1.5-3.5)
[2020-03-15 11:29] LABS: Hematocrit 25.4 VOL% (42.0-52.0); Hemoglobin 7.9 GM/DL (14.0-18.0)
[2020-03-15] MEDS: PROPRANOLOL 10 MG TABLET PO SCH (20:46)
[2020-03-16 05:18] LABS: Basophils % 0.6 % (0.0-0.8); Eosinophils % 0.7 % (0.00-10.9); Hematocrit 28.1 VOL% (42.0-52.0); Hemoglobin 8.6 GM/DL (14.0-18.0); Immature Granulocytes % 0.4 %; Immature Granulocytes Absolute 0.02 #; Lymphocytes # 0.9 10*3/uL (1.4-4.0); Lymphocytes % 16.2 % (21.2-54.2); Mean Corpuscular HGB Conc 30.6 GM/DL (32-36); Mean Corpuscular Volume 85.4 FL (87-102); Mean Platelet Volume 9.2 FL (9.6-12.0); Monocytes % 7.6 % (1.7-12.7); Neutrophils % 74.5 % (38.7-73.9); Platelet Count 101 T/CUMM (130-400); Red Blood Count 3.29 MC/CUMM (3.8-5.5); Red Cell Distribution Width 19.5 % (9.3-17.3); White Blood Count 5.4 T/CUMM (4-12)
[2020-03-16 05:29] LABS: INR 1.4; PT Patient Result 14.6 SECS (9.8-11.9)
[2020-03-16 05:44] LABS: Hypochromasia 2+; Ovalocytes Slight; Platelet Estimate Decreased
[2020-03-16 05:49] LABS: Calcium 8.7 MG/DL (8.5-10.1)
[2020-03-16] MEDS: DOCUSATE SODIUM 100 MG CAPSULE PO SCH (09:47)
[2020-03-16] MEDS: PANTOPRAZOLE 40 MG TABLET PO SCH (09:47)
[2020-03-16] MEDS: PROPRANOLOL 10 MG TABLET PO SCH ×2 (09:47→14:17)
[2020-03-16 13:40] VITALS: BP 107/71
[2020-03-16] MEDS ORDERED: chlordiazePOXIDE 25 MG CAPSULE PO SCH (15:00)
[2020-03-16] MEDS ORDERED: levETIRAcetam 500 MG TABLET NG SCH (21:00)
== END 2020-03-16 16:33 | disposition left against medical advice (07) | DRG 101 ==
LOC: EDBD → N.ED 18:05 → SUATTDRO 23:21 → N.EDINP 23:21 → N.TELES 03-15 00:48
PROVIDERS: ADMIT Internal Medicine; ATTEND Internal Medicine

== ENCOUNTER 2020-09-08 15:10 | Inpatient (IN) ==
[2020-09-08] MEDS ORDERED: PANTOPRAZOLE 40 MG TABLET PO STA (15:38)
[2020-09-08] MEDS ORDERED: SODIUM CHLORIDE 0.9% 1,000 ML IV STA (15:38)
[2020-09-08] MEDS ORDERED: ONDANSETRON 4 MG/2 ML VIAL IV STA (15:38)
[2020-09-08] MEDS ORDERED: PANTOPRAZOLE 40 MG VIAL IV STA ×2 (15:40→17:03)
[2020-09-08] MEDS ORDERED: PANTOPRAZOLE 40 MG VIAL IV ONE (15:40)
[2020-09-08 16:18] LABS: Eosinophils % 0.6 % (0.00-10.9); Immature Granulocytes % 1.4 %; Immature Granulocytes Absolute 0.09 #; Lymphocytes # 1.5 10*3/uL (1.4-4.0); Lymphocytes % 21.9 % (21.2-54.2); Mean Corpuscular HGB Conc 26.1 GM/DL (32-36); Mean Corpuscular Volume 80.7 FL (87-102); Mean Platelet Volume 9.6 FL (9.6-12.0); NRBC # 0.02 10*3/uL; Neutrophils % 68.1 % (38.7-73.9); Platelet Count 103 T/CUMM (130-400); Red Blood Count 1.14 MC/CUMM (3.8-5.5); Red Cell Distribution Width 24.2 % (9.3-17.3); White Blood Count 6.6 T/CUMM (4-12)
[2020-09-08 16:20] LABS: Hematocrit 9.2 VOL% (42.0-52.0); Hemoglobin 2.4 GM/DL (14.0-18.0)
[2020-09-08 16:31] LABS: INR 1.4; PT Patient Result 14.8 SECS (9.8-11.9); Partial Thromboplastin Time 30.9 SECS (23.9-33.8)
[2020-09-08] MEDS ORDERED: SODIUM CHLORIDE 0.9% 1,000 ML IV PRN ×2 (16:33→16:34)
[2020-09-08 16:35] LABS: Albumin 2.4 G/DL (3.4-5.0); Bilirubin,Total 1.7 MG/DL (0.2-1.0); Calcium 7.3 MG/DL (8.5-10.1); Osmolality,Calculated 276.7 MOS/KG (273-304); Potassium 4.5 MMOL/L (3.5-5.1); Total Protein 7.5 G/DL (5.0-7.5)
[2020-09-08] MEDS ORDERED: OCTREOTIDE 100 MCG/ML SYRINGE IV STA (16:54)
[2020-09-08] MEDS ORDERED: ONDANSETRON 4 MG/2 ML VIAL IV PRN (17:00)
[2020-09-08] MEDS ORDERED: ALBUTEROL 2.5 MG/3 ML NEB RESP TX PRN (17:00)
[2020-09-08] MEDS ORDERED: NICOTINE 21 MG/24 HR PATCH TRANSDERM PRN (17:22)
[2020-09-08] MEDS ORDERED: LORazepam 2 MG/1 ML VIAL IV PRN (17:24)
[2020-09-08 17:56] LABS: Target Cells Few
[2020-09-08 17:57] LABS: Anisocytosis 1+; Polychromasia Few; Tear Drop Cells Few
[2020-09-08 17:58] LABS: Hypochromasia 3+; Microcytosis 2+; Platelet Estimate Adequate
[2020-09-08] MEDS ORDERED: PANTOPRAZOLE INJ 200 MG in SODIUM CHLORIDE 0.9% 250 ML IV SCH (18:00)
[2020-09-08] MEDS: THIAMINE INJ 100 MG, FOLIC ACID INJ 1 MG, MULTIVITAMIN INJ 10 ML in SODIUM CHLORIDE 0.9... IV SCH (18:24)
[2020-09-08] MEDS: OCTREOTIDE 500 MCG in SODIUM CHLORIDE 0.9% 100 ML IV SCH (18:24)
[2020-09-08] MEDS: chlordiazePOXIDE 25 MG CAPSULE PO SCH (20:27)
[2020-09-08] MEDS: levETIRAcetam 500 MG TABLET PO SCH (20:28)
[2020-09-08 22:05] LABS: Barbiturates Screen,Urine Negative (Negative); Benzodiazepines Screen,Urine Negative (Negative); Cannabinoid Screen,Urine Negative (Negative); Opiate Screen,Urine Negative (Negative); Phencyclidine Screen,Urine Negative (Negative)
[2020-09-09] MEDS: OCTREOTIDE 500 MCG in SODIUM CHLORIDE 0.9% 100 ML IV SCH ×2 (04:17→13:30)
[2020-09-09 05:20] LABS: Hematocrit 18.1 VOL% (42.0-52.0)
[2020-09-09 05:29] LABS: Hemoglobin 5.6 GM/DL (14.0-18.0)
[2020-09-09 05:55] LABS: Albumin 2.5 G/DL (3.4-5.0); Bilirubin,Total 4.1 MG/DL (0.2-1.0); Calcium 7.3 MG/DL (8.5-10.1); Osmolality,Calculated 273.7 MOS/KG (273-304); Potassium 4.2 MMOL/L (3.5-5.1); Total Protein 7.3 G/DL (5.0-7.5)
[2020-09-09] MEDS: levETIRAcetam 500 MG TABLET PO SCH ×2 (08:05→21:27)
[2020-09-09] MEDS: chlordiazePOXIDE 25 MG CAPSULE PO SCH ×3 (08:05→21:27)
[2020-09-09] MEDS: HYDROCORTISONE 100 MG VIAL IV SCH ×2 (08:55→16:50)
[2020-09-09] MEDS ORDERED: LACTATED RINGERS 1,000 ML IV SCH (13:00)
[2020-09-09] MEDS ORDERED: LIDOCAINE 2% 5 ML VIAL ONE (13:37)
[2020-09-09] MEDS ORDERED: ETOMIDATE 20 MG/10 ML VIAL IV ONE (13:37)
[2020-09-09] MEDS ORDERED: CALCIUM CHLORIDE 1,000 MG/10 ML VIAL IV ONE (13:37)
[2020-09-09] MEDS ORDERED: propofoL 200 MG/20 ML VIAL IV ONE (13:37)
[2020-09-09 14:58] LABS: Hemoglobin 8.2 GM/DL (14.0-18.0)
[2020-09-09] MEDS: THIAMINE INJ 100 MG, FOLIC ACID INJ 1 MG, MULTIVITAMIN INJ 10 ML in SODIUM CHLORIDE 0.9... IV SCH (16:50)
[2020-09-09 23:28] LABS: Hematocrit 25.4 VOL% (42.0-52.0); Hemoglobin 8.2 GM/DL (14.0-18.0)
[2020-09-10] MEDS: HYDROCORTISONE 100 MG VIAL IV SCH ×4 (01:01→20:31)
[2020-09-10 04:45] LABS: Hematocrit 24.5 VOL% (42.0-52.0); Hemoglobin 7.8 GM/DL (14.0-18.0)
[2020-09-10 05:12] LABS: Albumin 2.5 G/DL (3.4-5.0); Bilirubin,Total 4.1 MG/DL (0.2-1.0); Calcium 7.9 MG/DL (8.5-10.1); Osmolality,Calculated 274.1 MOS/KG (273-304); Potassium 4.4 MMOL/L (3.5-5.1); Total Protein 7.6 G/DL (5.0-7.5)
[2020-09-10] MEDS ORDERED: chlordiazePOXIDE 25 MG CAPSULE PO PRN (08:39)
[2020-09-10] MEDS: chlordiazePOXIDE 25 MG CAPSULE PO SCH ×3 (09:26→20:32)
[2020-09-10] MEDS: levETIRAcetam 500 MG TABLET PO SCH ×2 (09:26→20:32)
[2020-09-10] MEDS: PANTOPRAZOLE 40 MG TABLET PO SCH (09:26)
[2020-09-10] MEDS: THIAMINE INJ 100 MG, FOLIC ACID INJ 1 MG, MULTIVITAMIN INJ 10 ML in SODIUM CHLORIDE 0.9... IV SCH (17:11)
[2020-09-11 06:10] LABS: Basophils % 0.1 % (0.0-0.8); Hematocrit 26.9 VOL% (42.0-52.0); Hemoglobin 8.5 GM/DL (14.0-18.0); Immature Granulocytes % 1.5 %; Immature Granulocytes Absolute 0.14 #; Lymphocytes # 0.9 10*3/uL (1.4-4.0); Lymphocytes % 9.5 % (21.2-54.2); Mean Corpuscular HGB Conc 31.6 GM/DL (32-36); Mean Corpuscular Volume 84.1 FL (87-102); Mean Platelet Volume 10.4 FL (9.6-12.0); NRBC # 0.03 10*3/uL; Neutrophils % 81.9 % (38.7-73.9); Platelet Count 87 T/CUMM (130-400); Red Cell Distribution Width 18.2 % (9.3-17.3); White Blood Count 9.3 T/CUMM (4-12)
[2020-09-11 06:31] LABS: Albumin 2.5 G/DL (3.4-5.0); Bilirubin,Total 3.5 MG/DL (0.2-1.0); Calcium 8.2 MG/DL (8.5-10.1); Osmolality,Calculated 280.4 MOS/KG (273-304); Potassium 3.5 MMOL/L (3.5-5.1); Total Protein 7.5 G/DL (5.0-7.5)
[2020-09-11 06:33] LABS: Hypochromasia 1+; Microcytosis 2+; Ovalocytes Slight; Platelet Estimate Decreased; Target Cells Slight
[2020-09-11] MEDS: PANTOPRAZOLE 40 MG TABLET PO SCH (08:35)
[2020-09-11] MEDS: levETIRAcetam 500 MG TABLET PO SCH ×2 (08:35→21:09)
[2020-09-11] MEDS: chlordiazePOXIDE 25 MG CAPSULE PO SCH ×3 (08:36→21:09)
[2020-09-11] MEDS: HYDROCORTISONE 100 MG VIAL IV SCH ×2 (08:41→21:08)
[2020-09-11] MEDS: LACTULOSE 20 GM/30 ML UDCUP PO SCH (11:05)
[2020-09-12 06:16] LABS: Hematocrit 24.1 VOL% (42.0-52.0); Hemoglobin 7.7 GM/DL (14.0-18.0); Immature Granulocytes Absolute 0.07 #; Lymphocytes # 0.8 10*3/uL (1.4-4.0); Lymphocytes % 10.7 % (21.2-54.2); Mean Corpuscular Volume 85.8 FL (87-102); Mean Platelet Volume 9.9 FL (9.6-12.0); NRBC # 0.03 10*3/uL; Neutrophils % 80.3 % (38.7-73.9); Platelet Count 83 T/CUMM (130-400); Red Blood Count 2.81 MC/CUMM (3.8-5.5); Red Cell Distribution Width 18.9 % (9.3-17.3)
[2020-09-12 06:36] LABS: Albumin 2.6 G/DL (3.4-5.0); Bilirubin,Total 3.4 MG/DL (0.2-1.0); Osmolality,Calculated 278.4 MOS/KG (273-304); Potassium 3.3 MMOL/L (3.5-5.1); Total Protein 7.5 G/DL (5.0-7.5)
[2020-09-12 06:43] LABS: Hypochromasia 2+; Microcytosis 1+; Platelet Estimate Decreased
[2020-09-12] MEDS ORDERED: SODIUM CHLORIDE 0.9% 1,000 ML IV PRN (08:43)
[2020-09-12] MEDS: LACTULOSE 20 GM/30 ML UDCUP PO SCH (08:45)
[2020-09-12] MEDS: chlordiazePOXIDE 25 MG CAPSULE PO SCH ×3 (08:46→21:31)
[2020-09-12] MEDS: THIAMINE 100 MG TABLET PO SCH (08:46)
[2020-09-12] MEDS: PANTOPRAZOLE 40 MG TABLET PO SCH (08:46)
[2020-09-12] MEDS: levETIRAcetam 500 MG TABLET PO SCH ×2 (08:46→21:31)
[2020-09-12] MEDS: MULTIVITAMIN (CENTRUM) TABLET PO SCH (08:47)
[2020-09-12] MEDS: FOLIC ACID 1 MG TABLET PO SCH (08:48)
[2020-09-12] MEDS: HYDROCORTISONE 100 MG VIAL IV SCH (09:09)
[2020-09-12] MEDS ORDERED: POTASSIUM CHLORIDE 20 MEQ TABLET PO ONE (09:17)
[2020-09-13 05:46] LABS: Basophils % 0.2 % (0.0-0.8); Eosinophils # 0.1 10*3/uL (0.0-0.87); Eosinophils % 1.2 % (0.00-10.9); Hematocrit 28.7 VOL% (42.0-52.0); Hemoglobin 9.1 GM/DL (14.0-18.0); Immature Granulocytes % 0.7 %; Immature Granulocytes Absolute 0.04 #; Lymphocytes # 1.2 10*3/uL (1.4-4.0); Lymphocytes % 19.5 % (21.2-54.2); Mean Corpuscular HGB Conc 31.7 GM/DL (32-36); Mean Corpuscular Volume 86.4 FL (87-102); Monocytes % 9.1 % (1.7-12.7); NRBC # 0.02 10*3/uL; Neutrophils % 69.3 % (38.7-73.9); Red Blood Count 3.32 MC/CUMM (3.8-5.5); White Blood Count 6.1 T/CUMM (4-12)
[2020-09-13 05:57] LABS: Calcium 7.7 MG/DL (8.5-10.1); Platelet Count 65 T/CUMM (130-400); Potassium 3.4 MMOL/L (3.5-5.1)
[2020-09-13 06:02] LABS: Albumin 2.2 G/DL (3.4-5.0); Bilirubin,Total 3.6 MG/DL (0.2-1.0); Calcium 7.7 MG/DL (8.5-10.1); Osmolality,Calculated 284.8 MOS/KG (273-304); Potassium 3.4 MMOL/L (3.5-5.1); Total Protein 6.4 G/DL (5.0-7.5)
[2020-09-13 06:05] LABS: Haptoglobin < 8.0 MG/DL (30-200)
[2020-09-13 06:17] LABS: Anisocytosis 1+; Hypochromasia 1+; Microcytosis 1+; Polychromasia Slight
[2020-09-13 06:18] LABS: Ovalocytes Slight; Platelet Estimate Decreased; Target Cells Slight
[2020-09-13] MEDS ORDERED: POTASSIUM CHLORIDE RIDER 10 MEQ in PREMIX 1 EACH IV PRN (08:48)
[2020-09-13] MEDS: FOLIC ACID 1 MG TABLET PO SCH (09:12)
[2020-09-13] MEDS: chlordiazePOXIDE 25 MG CAPSULE PO SCH (09:12)
[2020-09-13] MEDS: PANTOPRAZOLE 40 MG TABLET PO SCH (09:12)
[2020-09-13] MEDS: THIAMINE 100 MG TABLET PO SCH (09:12)
[2020-09-13] MEDS: LACTULOSE 20 GM/30 ML UDCUP PO SCH (09:12)
[2020-09-13] MEDS: levETIRAcetam 500 MG TABLET PO SCH (09:12)
[2020-09-13] MEDS: MULTIVITAMIN (CENTRUM) TABLET PO SCH (09:13)
[2020-09-13] MEDS: POTASSIUM CHLORIDE 20 MEQ TABLET PO PRN ×2 (10:56→13:11)
[2020-09-13 11:38] VITALS: BP 126/71
[2020-09-13] MEDS ORDERED: levETIRAcetam 500 MG TABLET PO SCH (21:00)
== END 2020-09-13 14:51 | disposition home or self-care (01) | DRG 369 ==
LOC: EDUNIT# → EDBD → N.ED 15:10 → N.EDINP 17:00 → SUATTDRO 17:00 → N.ICU 17:40 → N.4E 09-10 11:06
PROVIDERS: ADMIT Internal Medicine; ATTEND Internal Medicine

== ENCOUNTER 2021-02-11 20:54 | Inpatient (IN) ==
[2021-02-11] MEDS ORDERED: THIAMINE INJ 100 MG, FOLIC ACID INJ 1 MG, MAGNESIUM SULF INJ 2 GM, MULTIVITAMIN INJ 10 ... IV ONE (21:42)
[2021-02-11] MEDS ORDERED: ONDANSETRON 4 MG/2 ML VIAL IV STA (21:42)
[2021-02-11 21:51] LABS: Basophils # 0.1 10*3/uL (0.0-0.2); Basophils % 0.7 % (0.0-0.8); Eosinophils # 0.1 10*3/uL (0.0-0.87); Eosinophils % 1.4 % (0.00-10.9); Hemoglobin 7.2 GM/DL (14.0-18.0); Immature Granulocytes % 0.4 %; Immature Granulocytes Absolute 0.03 #; Lymphocytes # 1.4 10*3/uL (1.4-4.0); Lymphocytes % 19.5 % (21.2-54.2); Mean Corpuscular Volume 88.9 FL (87-102); Mean Platelet Volume 9.1 FL (9.6-12.0); Monocytes % 7.7 % (1.7-12.7); Neutrophils % 70.3 % (38.7-73.9); Platelet Count 82 T/CUMM (130-400); Red Cell Distribution Width 23.2 % (9.3-17.3)
[2021-02-11 22:04] LABS: Albumin 2.9 G/DL (3.4-5.0); Bilirubin,Total 3.2 MG/DL (0.20-1.00); Calcium 8.3 MG/DL (8.5-10.1); Osmolality,Calculated 267.1 MOS/KG (273-304); Potassium 3.3 MMOL/L (3.5-5.1); Total Protein 9.2 G/DL (6.4-8.2)
[2021-02-11 23:01] LABS: Bilirubin,Urine Negative (Negative); Blood, Urine Negative (Negative); Glucose,Urine (UA) Negative (Negative); Hyaline Casts,Urine 7 /LPF (0-3); Ketones,Urine Negative (Negative); Mucus,Urine Occasional /LPF (Occasional); Nitrite,Urine Negative (Negative); Protein,Urine Negative; RBC,Urine 2 /HPF (0-4); Urine Appearance CLEAR (Clear); Urine Color Amber (Yellow); Urine Specific Gravity 1.011 (1.001-1.035)
[2021-02-11 23:17] LABS: Barbiturates Screen,Urine Negative (Negative); Benzodiazepines Screen,Urine Negative (Negative); Cannabinoid Screen,Urine Negative (Negative); Opiate Screen,Urine Negative (Negative); Phencyclidine Screen,Urine Negative (Negative)
[2021-02-12] MEDS ORDERED: DEXTROSE 50% 25 GM/50 ML VIAL IV PRN (01:15)
[2021-02-12] MEDS ORDERED: GLUCAGON 1 MG VIAL IM PRN (01:15)
[2021-02-12] MEDS ORDERED: ACETAMINOPHEN 325 MG TABLET PO PRN (01:15)
[2021-02-12] MEDS ORDERED: ONDANSETRON 4 MG/2 ML VIAL IV PRN (01:15)
[2021-02-12] MEDS ORDERED: SODIUM CHLORIDE 0.9% 1,000 ML IV PRN (01:33)
[2021-02-12] MEDS ORDERED: POTASSIUM CHLORIDE RIDER 10 MEQ/100 ML PREMIX IV PRN (01:37)
[2021-02-12] MEDS ORDERED: MAGNESIUM SULF RIDER 2 GM/50 ML PREMIX IV PRN (01:38)
[2021-02-12] MEDS: SODIUM CHLORIDE 0.9% 1,000 ML IV SCH ×3 (02:00→19:31)
[2021-02-12] MEDS: POTASSIUM CHLORIDE 20 MEQ TABLET PO PRN ×2 (03:08→09:20)
[2021-02-12 04:01] LABS: Basophils % 0.8 % (0.0-0.8); Eosinophils # 0.1 10*3/uL (0.0-0.87); Hematocrit 26.1 VOL% (42.0-52.0); Hemoglobin 7.7 GM/DL (14.0-18.0); Immature Granulocytes % 0.4 %; Immature Granulocytes Absolute 0.02 #; Lymphocytes % 20.5 % (21.2-54.2); Mean Corpuscular HGB Conc 29.5 GM/DL (32-36); Mean Platelet Volume 8.8 FL (9.6-12.0); Monocytes % 6.5 % (1.7-12.7); Neutrophils % 70.8 % (38.7-73.9); Platelet Count 72 T/CUMM (130-400); Red Cell Distribution Width 23.2 % (9.3-17.3); White Blood Count 5.1 T/CUMM (4-12)
[2021-02-12 04:18] LABS: Hypochromasia 1+; Microcytosis 1+; Platelet Estimate Decreased
[2021-02-12 04:41] LABS: Bilirubin,Total 3.3 MG/DL (0.20-1.00); Calcium 8.1 MG/DL (8.5-10.1); Osmolality,Calculated 275.4 MOS/KG (273-304); Potassium 3.5 MMOL/L (3.5-5.1); Total Protein 9.1 G/DL (6.4-8.2)
[2021-02-12] MEDS ORDERED: LORazepam 2 MG/1 ML VIAL IM PRN (06:25)
[2021-02-12 07:40] LABS: INR 1.2; PT Patient Result 13.6 SECS (10.5-12.0); Partial Thromboplastin Time 32.9 SECS (23.9-33.8)
[2021-02-12] MEDS: DOCUSATE SODIUM 100 MG CAPSULE PO SCH ×2 (09:16→20:38)
[2021-02-12] MEDS: PANTOPRAZOLE 40 MG TABLET PO SCH (09:16)
[2021-02-12] MEDS ORDERED: chlordiazePOXIDE 25 MG CAPSULE PO PRN (12:15)
[2021-02-12] MEDS: levETIRAcetam 500 MG TABLET PO SCH ×2 (12:24→20:38)
[2021-02-12] MEDS: THIAMINE INJ 100 MG, FOLIC ACID INJ 1 MG, MULTIVITAMIN INJ 10 ML in SODIUM CHLORIDE 0.9... IV SCH (20:38)
[2021-02-13] MEDS: SODIUM CHLORIDE 0.9% 1,000 ML IV SCH (06:25)
[2021-02-13] MEDS: LACTATED RINGERS 1,000 ML IV SCH (08:13)
[2021-02-13 08:29] LABS: Basophils % 0.2 % (0.0-0.8); Eosinophils # 0.1 10*3/uL (0.0-0.87); Eosinophils % 1.3 % (0.00-10.9); Hematocrit 21.5 VOL% (42.0-52.0); Hemoglobin 6.5 GM/DL (14.0-18.0); Immature Granulocytes % 0.2 %; Immature Granulocytes Absolute 0.01 #; Lymphocytes # 0.7 10*3/uL (1.4-4.0); Lymphocytes % 15.4 % (21.2-54.2); Mean Corpuscular HGB Conc 30.2 GM/DL (32-36); Mean Corpuscular Volume 90.3 FL (87-102); Mean Platelet Volume 9.7 FL (9.6-12.0); Monocytes % 7.7 % (1.7-12.7); Neutrophils % 75.2 % (38.7-73.9); Red Blood Count 2.38 MC/CUMM (3.8-5.5); Red Cell Distribution Width 22.8 % (9.3-17.3); White Blood Count 4.8 T/CUMM (4-12)
[2021-02-13 08:31] LABS: Platelet Count 45 T/CUMM (130-400)
[2021-02-13 08:49] LABS: Albumin 2.6 G/DL (3.4-5.0); Bilirubin,Total 4.1 MG/DL (0.20-1.00); Calcium 7.7 MG/DL (8.5-10.1); Osmolality,Calculated 266.1 MOS/KG (273-304); Potassium 3.8 MMOL/L (3.5-5.1); Total Protein 7.7 G/DL (6.4-8.2)
[2021-02-13 08:52] LABS: Anisocytosis 1+; Hypochromasia 1+; Microcytosis 1+
[2021-02-13 08:53] LABS: Platelet Estimate Decreased
[2021-02-13] MEDS ORDERED: SODIUM CHLORIDE 0.9% 1,000 ML IV PRN (12:21)
[2021-02-13] MEDS ORDERED: propofoL 200 MG/20 ML VIAL IV ONE (14:02)
[2021-02-13] MEDS ORDERED: LIDOCAINE 2% 5 ML VIAL ONE (14:02)
[2021-02-13] MEDS: levETIRAcetam 500 MG TABLET PO SCH ×2 (15:17→20:05)
[2021-02-13] MEDS: PANTOPRAZOLE 40 MG TABLET PO SCH (15:18)
[2021-02-13] MEDS: DOCUSATE SODIUM 100 MG CAPSULE PO SCH ×2 (15:18→20:05)
[2021-02-13] MEDS: THIAMINE INJ 100 MG, FOLIC ACID INJ 1 MG, MULTIVITAMIN INJ 10 ML in SODIUM CHLORIDE 0.9... IV SCH (21:27)
[2021-02-14 04:58] LABS: Basophils % 0.2 % (0.0-0.8); Eosinophils # 0.1 10*3/uL (0.0-0.87); Eosinophils % 1.4 % (0.00-10.9); Hematocrit 24.3 VOL% (42.0-52.0); Hemoglobin 7.6 GM/DL (14.0-18.0); Immature Granulocytes % 0.2 %; Immature Granulocytes Absolute 0.01 #; Lymphocytes # 0.8 10*3/uL (1.4-4.0); Lymphocytes % 15.9 % (21.2-54.2); Mean Corpuscular HGB Conc 31.3 GM/DL (32-36); Mean Corpuscular Volume 88.7 FL (87-102); Monocytes % 7.7 % (1.7-12.7); Neutrophils % 74.6 % (38.7-73.9); Red Blood Count 2.74 MC/CUMM (3.8-5.5); Red Cell Distribution Width 22.6 % (9.3-17.3)
[2021-02-14 05:03] LABS: Platelet Count 42 T/CUMM (130-400)
[2021-02-14 05:11] LABS: Albumin 2.6 G/DL (3.4-5.0); Bilirubin,Total 5.8 MG/DL (0.20-1.00); Calcium 8.1 MG/DL (8.5-10.1); Potassium 3.6 MMOL/L (3.5-5.1); Total Protein 7.8 G/DL (6.4-8.2)
[2021-02-14] MEDS: SODIUM CHLORIDE 0.9% 1,000 ML IV SCH (07:30)
[2021-02-14 08:22] VITALS: BP 122/51
[2021-02-14] MEDS ORDERED: PROPRANOLOL 10 MG TABLET PO SCH (09:00)
[2021-02-14] MEDS: levETIRAcetam 500 MG TABLET PO SCH (09:02)
[2021-02-14] MEDS: DOCUSATE SODIUM 100 MG CAPSULE PO SCH (09:02)
[2021-02-14] MEDS: PANTOPRAZOLE 40 MG TABLET PO SCH (09:02)
[2021-02-14] MEDS: LACTATED RINGERS 1,000 ML IV SCH (09:31)
== END 2021-02-14 12:25 | disposition home or self-care (01) | DRG 378 ==
LOC: EDBD → EDUNIT# → N.ED 20:54 → SUATTDRO 02-12 01:15 → N.EDINP 02-12 01:15 → N.TELEN 02-12 07:07
PROVIDERS: ADMIT Internal Medicine; ATTEND Internal Medicine

== ENCOUNTER 2021-09-12 16:19 | Inpatient (IN) ==
[2021-09-12] MEDS ORDERED: ONDANSETRON 4 MG/2 ML VIAL IV STA (17:36)
[2021-09-12] MEDS ORDERED: HYDROmorphone 1 MG/1 ML SYRINGE IV STA (17:36)
[2021-09-12 18:06] LABS: Basophils # 0.1 10*3/uL (0.0-0.2); Basophils % 0.6 % (0.0-0.8); Eosinophils # 0.1 10*3/uL (0.0-0.87); Eosinophils % 0.9 % (0.00-10.9); Hematocrit 34.8 VOL% (42.0-52.0); Hemoglobin 11.4 GM/DL (14.0-18.0); Immature Granulocytes % 0.3 %; Immature Granulocytes Absolute 0.04 #; Lymphocytes # 0.6 10*3/uL (1.4-4.0); Lymphocytes % 5.1 % (21.2-54.2); Mean Corpuscular HGB Conc 32.8 GM/DL (32-36); Mean Corpuscular Volume 93.5 FL (87-102); Mean Platelet Volume 10.9 FL (9.6-12.0); Monocytes % 2.3 % (1.7-12.7); Neutrophils % 90.8 % (38.7-73.9); Platelet Count 162 T/CUMM (130-400); Red Blood Count 3.72 MC/CUMM (3.8-5.5); Red Cell Distribution Width 21.9 % (9.3-17.3); White Blood Count 12.6 T/CUMM (4-12)
[2021-09-12 18:24] LABS: Albumin 1.3 G/DL (3.4-5.0); Calcium 8.4 MG/DL (8.5-10.1); Osmolality,Calculated 261.8 MOS/KG (273-304); Potassium 3.4 MMOL/L (3.5-5.1); Total Protein 8.5 G/DL (6.4-8.2)
[2021-09-12 18:26] LABS: Bilirubin,Total 24.5 MG/DL (0.20-1.00)
[2021-09-12 18:38] LABS: INR 2.6
[2021-09-12 18:40] LABS: PT Patient Result 26.6 SECS (10.5-12.0)
[2021-09-12] MEDS ORDERED: cefTRIAXone 1,000 MG in SODIUM CHLORIDE 0.9% 100 ML IV STA (18:41)
[2021-09-12] MEDS ORDERED: SODIUM CHLORIDE 0.9% 1,000 ML IV STA (18:41)
[2021-09-12] MEDS ORDERED: LACTULOSE 20 GM/30 ML UDCUP PO STA (18:56)
[2021-09-12] MEDS ORDERED: RIFAXIMIN 550 MG TABLET PO STA (18:56)
[2021-09-12 19:17] LABS: Band Neutrophils 9 % (0-10); Lymphocytes 3 % (20-55); Segmented Neutrophils 86 % (50-85); Total Cells Counted 100
[2021-09-12 19:21] LABS: Acanthocytes Few; Anisocytosis Slight; Hypochromia Slight
[2021-09-12 19:22] LABS: Platelet Estimate Normal; Schistocytes Slight
[2021-09-12] MEDS ORDERED: ONDANSETRON 4 MG/2 ML VIAL IV PRN (19:37)
[2021-09-12] MEDS ORDERED: GLUCAGON 1 MG VIAL IM PRN (19:37)
[2021-09-12] MEDS ORDERED: DEXTROSE 10% 250 ML BAG IV PRN (19:42)
[2021-09-12] MEDS ORDERED: MORPHINE 4 MG/1 ML VIAL IV PRN (19:44)
[2021-09-12 20:07] LABS: Thyroid Stimulating Hormone 1.92 uIU/ml (0.358-3.74)
[2021-09-12] MEDS: PROPRANOLOL 10 MG TABLET PO SCH (21:14)
[2021-09-12] MEDS: RIFAMPIN 300 MG CAPSULE PO SCH (21:14)
[2021-09-12] MEDS: MIDODRINE 5 MG TABLET PO SCH (22:18)
[2021-09-13 06:38] LABS: Basophils % 0.2 % (0.0-0.8); Hematocrit 27.5 VOL% (42.0-52.0); Immature Granulocytes % 1.3 %; Lymphocytes # 0.7 10*3/uL (1.4-4.0); Lymphocytes % 2.9 % (21.2-54.2); Mean Corpuscular HGB Conc 33.5 GM/DL (32-36); Mean Corpuscular Volume 92.6 FL (87-102); Mean Platelet Volume 12.9 FL (9.6-12.0); Monocytes % 5.2 % (1.7-12.7); Neutrophils % 90.4 % (38.7-73.9); Red Cell Distribution Width 22.3 % (9.3-17.3)
[2021-09-13 06:39] LABS: Alanine Aminotransferase 12 U/L (16-61); Alkaline Phosphatase 138 U/L (45-117); Aspartate Amino Transferase 39 U/L (0-37); Blood Urea Nitrogen 27 MG/DL (7-18); Calcium 7.7 MG/DL (8.5-10.1); Carbon Dioxide 13 MMOL/L (21-32); Estimated Glom Filtration Rate 13 ML/MIN; Glucose 86 MG/DL (74-106); HDL Cholesterol < 10 MG/DL (40-60); Osmolality,Calculated 265.7 MOS/KG (273-304); Potassium 3.9 MMOL/L (3.5-5.1); Sodium 131 MMOL/L (136-145); Total Protein 7.1 G/DL (6.4-8.2); Triglycerides 63 MG/DL (2-150); VLDL Cholesterol 12.6 MG/DL
[2021-09-13 06:40] LABS: Hemoglobin 9.2 GM/DL (14.0-18.0); Platelet Count 117 T/CUMM (130-400); Red Blood Count 2.97 MC/CUMM (3.8-5.5); White Blood Count 23.3 T/CUMM (4-12)
[2021-09-13 07:16] LABS: Band Neutrophils 13 % (0-10); Hypochromia Slight; Lymphocytes 1 % (20-55); Metamyelocytes 1 %; Segmented Neutrophils 82 % (50-85); Total Cells Counted 100
[2021-09-13 07:17] LABS: Microcytosis 1+; Ovalocytes Slight
[2021-09-13 07:18] LABS: Platelet Estimate Decreased
[2021-09-13] MEDS ORDERED: SPIRONOLACTONE 25 MG TABLET PO SCH (09:00)
[2021-09-13] MEDS ORDERED: FUROSEMIDE 20 MG TABLET PO SCH (09:00)
[2021-09-13] MEDS ORDERED: LACTULOSE 20 GM/30 ML UDCUP PO SCH ×2 (09:00→12:00)
[2021-09-13] MEDS: FOLIC ACID 1 MG TABLET PO SCH (10:28)
[2021-09-13] MEDS: MIDODRINE 5 MG TABLET PO SCH ×2 (10:28→22:44)
[2021-09-13] MEDS: PANTOPRAZOLE 40 MG TABLET PO SCH (10:28)
[2021-09-13] MEDS: MULTIVITAMIN (INTRINSIC) CAPSULE PO SCH (10:28)
[2021-09-13] MEDS: THIAMINE 100 MG TABLET PO SCH (10:28)
[2021-09-13] MEDS: PROPRANOLOL 10 MG TABLET PO SCH ×2 (10:34→22:44)
[2021-09-13] MEDS: NICOTINE 21 MG/24 HR PATCH TRANSDERM SCH (10:34)
[2021-09-13] MEDS: SODIUM CHLORIDE 0.9% 1,000 ML IV SCH (10:35)
[2021-09-13] MEDS: RIFAMPIN 300 MG CAPSULE PO SCH ×2 (11:27→22:43)
[2021-09-13] MEDS: cefTRIAXone 1,000 MG in SODIUM CHLORIDE 0.9% 100 ML IV SCH (17:41)
[2021-09-13] MEDS: LACTULOSE 20 GM/30 ML UDCUP PO SCH (17:41)
[2021-09-13] MEDS: levETIRAcetam 500 MG TABLET PO SCH (22:43)
[2021-09-14] MEDS: LACTULOSE 20 GM/30 ML UDCUP PO SCH ×3 (01:16→12:50)
[2021-09-14] MEDS: SODIUM CHLORIDE 0.9% 1,000 ML IV SCH ×2 (01:17→14:36)
[2021-09-14 04:57] LABS: Basophils % 0.1 % (0.0-0.8); Hematocrit 23.7 VOL% (42.0-52.0); Hemoglobin 8.3 GM/DL (14.0-18.0); Immature Granulocytes % 2.1 %; Lymphocytes % 4.2 % (21.2-54.2); Mean Corpuscular Volume 90.8 FL (87-102); Mean Platelet Volume 11.3 FL (9.6-12.0); Monocytes % 8.4 % (1.7-12.7); Neutrophils % 85.2 % (38.7-73.9); Platelet Count 159 T/CUMM (130-400); Red Blood Count 2.61 MC/CUMM (3.8-5.5); Red Cell Distribution Width 21.6 % (9.3-17.3); White Blood Count 23.6 T/CUMM (4-12)
[2021-09-14 05:25] LABS: Alanine Aminotransferase < 9 U/L (16-61); Albumin 0.9 G/DL (3.4-5.0); Alkaline Phosphatase 96 U/L (45-117); Aspartate Amino Transferase 31 U/L (0-37); Blood Urea Nitrogen 39 MG/DL (7-18); Calcium 7.1 MG/DL (8.5-10.1); Carbon Dioxide 18 MMOL/L (21-32); Estimated Glom Filtration Rate 10 ML/MIN; Glucose 87 MG/DL (74-106); Osmolality,Calculated 262.2 MOS/KG (273-304); Potassium 4.3 MMOL/L (3.5-5.1); Sodium 127 MMOL/L (136-145); Total Protein 6.5 G/DL (6.4-8.2)
[2021-09-14 05:28] LABS: Band Neutrophils 3 % (0-10); Lymphocytes 1 % (20-55); Segmented Neutrophils 90 % (50-85); Total Cells Counted 100
[2021-09-14 05:29] LABS: Acanthocytes Few; Anisocytosis 1+; Hypochromia Slight; Microcytosis 1+; Target Cells Slight
[2021-09-14 05:30] LABS: Ovalocytes Slight; Platelet Estimate Adequate
[2021-09-14] MEDS: levETIRAcetam 500 MG TABLET PO SCH ×4 (09:28→21:48)
[2021-09-14] MEDS: THIAMINE 100 MG TABLET PO SCH ×2 (09:28→10:57)
[2021-09-14] MEDS: PANTOPRAZOLE 40 MG TABLET PO SCH ×2 (09:28→10:56)
[2021-09-14] MEDS: FOLIC ACID 1 MG TABLET PO SCH ×3 (09:28→14:31)
[2021-09-14] MEDS: MULTIVITAMIN (INTRINSIC) CAPSULE PO SCH ×2 (09:28→10:57)
[2021-09-14] MEDS: MIDODRINE 5 MG TABLET PO SCH ×4 (09:28→22:00)
[2021-09-14] MEDS: RIFAMPIN 300 MG CAPSULE PO SCH ×3 (09:29→21:49)
[2021-09-14] MEDS: NICOTINE 21 MG/24 HR PATCH TRANSDERM SCH (09:29)
[2021-09-14] MEDS: PROPRANOLOL 10 MG TABLET PO SCH ×2 (09:29→21:49)
[2021-09-14] MEDS: LACTULOSE 320 GM/480 ML BOTTLE RECTAL SCH ×2 (14:34→21:00)
[2021-09-14] MEDS: cefTRIAXone 1,000 MG in SODIUM CHLORIDE 0.9% 100 ML IV SCH (17:36)
[2021-09-15] MEDS: LACTULOSE 320 GM/480 ML BOTTLE RECTAL SCH ×2 (03:00→08:01)
[2021-09-15 04:35] LABS: INR 2.8
[2021-09-15] MEDS: SODIUM CHLORIDE 0.9% 1,000 ML IV SCH ×2 (05:49→14:25)
[2021-09-15] MEDS ORDERED: BUPIVACAINE MPF 0.25% 30 ML VIAL ONE (06:33)
[2021-09-15] MEDS ORDERED: HEPARIN 5,000 UNIT/1 ML VIAL ONE (06:33)
[2021-09-15] MEDS ORDERED: LIDOCAINE 1%/EPI INJ 20 ML VIAL ONE (06:33)
[2021-09-15] MEDS ORDERED: SODIUM CHLORIDE 0.9% 250 ML IV SCH (07:30)
[2021-09-15] MEDS ORDERED: fentaNYL 100 MCG/2 ML VIAL ONE (07:42)
[2021-09-15] MEDS ORDERED: MIDAZOLAM 2 MG/2 ML VIAL ONE (07:42)
[2021-09-15] MEDS ORDERED: ceFAZolin 1,000 MG VIAL ONE (07:49)
[2021-09-15] MEDS ORDERED: TISSUE ADHESIVE 1 EACH APPLICATOR TOP ONE (08:02)
[2021-09-15] MEDS ORDERED: PHYTONADIONE 10 MG/1 ML AMP SUBCUT ONE (09:29)
[2021-09-15] MEDS: MIDODRINE 5 MG TABLET PO SCH ×3 (09:50→20:01)
[2021-09-15] MEDS: MULTIVITAMIN (INTRINSIC) CAPSULE PO SCH (09:53)
[2021-09-15] MEDS: FOLIC ACID 1 MG TABLET PO SCH (09:53)
[2021-09-15] MEDS: levETIRAcetam 500 MG TABLET PO SCH ×2 (09:53→20:01)
[2021-09-15] MEDS: PROPRANOLOL 10 MG TABLET PO SCH (09:53)
[2021-09-15] MEDS: THIAMINE 100 MG TABLET PO SCH (09:53)
[2021-09-15] MEDS: RIFAMPIN 300 MG CAPSULE PO SCH ×2 (09:54→20:01)
[2021-09-15] MEDS: PANTOPRAZOLE 40 MG TABLET PO SCH (09:54)
[2021-09-15] MEDS: NICOTINE 21 MG/24 HR PATCH TRANSDERM SCH (10:07)
[2021-09-15 10:58] LABS: Basophils % 0.1 % (0.0-0.8); Eosinophils % 0.1 % (0.00-10.9); Hemoglobin 9.2 GM/DL (14.0-18.0); Immature Granulocytes % 0.9 %; Immature Granulocytes Absolute 0.19 #; Lymphocytes # 1.5 10*3/uL (1.4-4.0); Mean Corpuscular HGB Conc 34.1 GM/DL (32-36); Mean Corpuscular Volume 91.8 FL (87-102); Mean Platelet Volume 12.7 FL (9.6-12.0); Monocytes % 8.8 % (1.7-12.7); NRBC # 0.07 10*3/uL; Neutrophils % 83.1 % (38.7-73.9); Platelet Count 201 T/CUMM (130-400); Red Blood Count 2.94 MC/CUMM (3.8-5.5); Red Cell Distribution Width 21.5 % (9.3-17.3); White Blood Count 21.9 T/CUMM (4-12)
[2021-09-15 11:17] LABS: Albumin 0.7 G/DL (3.4-5.0); Calcium 6.8 MG/DL (8.5-10.1); Osmolality,Calculated 272.1 MOS/KG (273-304); Potassium 5.1 MMOL/L (3.5-5.1); Total Protein 6.7 G/DL (6.4-8.2)
[2021-09-15] MEDS ORDERED: SODIUM CHLORIDE 0.9% 500 ML IV ONE (11:36)
[2021-09-15 11:38] LABS: Bilirubin,Total 19.1 MG/DL (0.20-1.00)
[2021-09-15 12:28] LABS: Eosinophils 1 % (0-10); Lymphocytes 10 % (20-55); Segmented Neutrophils 82 % (50-85); Total Cells Counted 100
[2021-09-15 12:29] LABS: Burr Cells Slight; Platelet Estimate Normal; Poikilocytosis Slight; Target Cells Slight
[2021-09-15] MEDS ORDERED: NOREPINEPHRINE 4 MG/4 ML VIAL IV ONE (13:20)
[2021-09-15] MEDS: NOREPINEPHRINE 8 MG in SODIUM CHLORIDE 0.9% 242 ML IV PRN ×3 (13:35→22:58)
[2021-09-15] MEDS ORDERED: ALBUMIN 25% 25 GM/100 ML VIAL IV ONE (13:38)
[2021-09-15] MEDS ORDERED: NOREPINEPHRINE 8 MG in SODIUM CHLORIDE 0.9% 242 ML IV PRN (13:51)
[2021-09-15] MEDS: LACTULOSE 20 GM/30 ML UDCUP PO SCH ×3 (14:25→20:01)
[2021-09-15] MEDS ORDERED: COSYNTROPIN 0.25 MG VIAL IV ONE (16:57)
[2021-09-15] MEDS: cefTRIAXone 2,000 MG in SODIUM CHLORIDE 0.9% 100 ML IV SCH (18:10)
[2021-09-15 19:57] LABS: Hepatitis B Surface Ag Result Non-Reactive (NonReactive); Hepatitis C Virus Ab Quant 0.28 Index; Hepatitis C Virus Ab Result Non-Reactive (NonReactive)
[2021-09-15] MEDS ORDERED: HEPARIN 10,000 UNIT/10 ML VIAL IV SCH (20:30)
[2021-09-15] MEDS: ALBUMIN 5% 25 GM/500 ML VIAL IV SCH (21:46)
[2021-09-16] MEDS: NOREPINEPHRINE 8 MG in SODIUM CHLORIDE 0.9% 242 ML IV PRN ×7 (03:10→23:09)
[2021-09-16 04:27] LABS: Basophils % 0.1 % (0.0-0.8); Hematocrit 28.1 VOL% (42.0-52.0); Hemoglobin 9.7 GM/DL (14.0-18.0); Immature Granulocytes % 0.7 %; Immature Granulocytes Absolute 0.14 #; Lymphocytes # 1.8 10*3/uL (1.4-4.0); Mean Corpuscular HGB Conc 34.5 GM/DL (32-36); Mean Corpuscular Volume 89.8 FL (87-102); Mean Platelet Volume 10.1 FL (9.6-12.0); Monocytes % 11.2 % (1.7-12.7); NRBC # 0.07 10*3/uL; Platelet Count 144 T/CUMM (130-400); Red Blood Count 3.13 MC/CUMM (3.8-5.5); Red Cell Distribution Width 21.2 % (9.3-17.3); White Blood Count 20.2 T/CUMM (4-12)
[2021-09-16 04:42] LABS: INR 2.9
[2021-09-16] MEDS: SODIUM CHLORIDE 0.9% 1,000 ML IV SCH ×3 (04:43→17:44)
[2021-09-16 04:49] LABS: Lymphocytes 7 % (20-55); Nucleated Red Blood Cells 2 (0-5); Segmented Neutrophils 84 % (50-85); Total Cells Counted 100
[2021-09-16 04:50] LABS: Acanthocytes Few; Microcytosis 1+; Ovalocytes Slight; PT Patient Result 30.3 SECS (10.5-12.0); Polychromasia Slight; Target Cells Slight
[2021-09-16 04:50] LABS: Albumin 1.1 G/DL (3.4-5.0); Calcium 7.2 MG/DL (8.5-10.1); Osmolality,Calculated 277.4 MOS/KG (273-304); Potassium 4.6 MMOL/L (3.5-5.1)
[2021-09-16 04:51] LABS: Hypochromia Slight; Platelet Estimate Adequate
[2021-09-16 04:53] LABS: Bilirubin,Total 22.5 MG/DL (0.20-1.00)
[2021-09-16] MEDS: ALBUMIN 5% 25 GM/500 ML VIAL IV SCH ×3 (05:40→21:00)
[2021-09-16] MEDS: FOLIC ACID 1 MG TABLET PO SCH (09:28)
[2021-09-16] MEDS: NICOTINE 21 MG/24 HR PATCH TRANSDERM SCH (09:28)
[2021-09-16] MEDS: LACTULOSE 20 GM/30 ML UDCUP PO SCH ×3 (09:28→20:05)
[2021-09-16] MEDS: THIAMINE 100 MG TABLET PO SCH (09:29)
[2021-09-16] MEDS: RIFAXIMIN 550 MG TABLET PO SCH ×2 (09:29→20:05)
[2021-09-16] MEDS: PANTOPRAZOLE 40 MG TABLET PO SCH (09:29)
[2021-09-16] MEDS: MULTIVITAMIN (INTRINSIC) CAPSULE PO SCH (09:29)
[2021-09-16] MEDS: MIDODRINE 5 MG TABLET PO SCH ×2 (09:29→20:05)
[2021-09-16] MEDS: levETIRAcetam 500 MG TABLET PO SCH ×2 (11:12→20:05)
[2021-09-16] MEDS: cefTRIAXone 2,000 MG in SODIUM CHLORIDE 0.9% 100 ML IV SCH (18:45)
[2021-09-17] MEDS: SODIUM CHLORIDE 0.9% 1,000 ML IV SCH ×4 (00:40→19:55)
[2021-09-17] MEDS: NOREPINEPHRINE 8 MG in SODIUM CHLORIDE 0.9% 242 ML IV PRN ×10 (01:40→22:46)
[2021-09-17 04:04] LABS: Basophils % 0.1 % (0.0-0.8); Eosinophils # 0.1 10*3/uL (0.0-0.87); Eosinophils % 0.3 % (0.00-10.9); Hematocrit 21.3 VOL% (42.0-52.0); Hemoglobin 7.4 GM/DL (14.0-18.0); Immature Granulocytes % 0.9 %; Immature Granulocytes Absolute 0.17 #; Lymphocytes # 2.4 10*3/uL (1.4-4.0); Lymphocytes % 12.6 % (21.2-54.2); Mean Corpuscular HGB Conc 34.7 GM/DL (32-36); Mean Corpuscular Volume 91.8 FL (87-102); Mean Platelet Volume 9.5 FL (9.6-12.0); Monocytes % 11.6 % (1.7-12.7); NRBC # 0.27 10*3/uL; Neutrophils % 74.5 % (38.7-73.9); Platelet Count 92 T/CUMM (130-400); Red Blood Count 2.32 MC/CUMM (3.8-5.5); Red Cell Distribution Width 21.3 % (9.3-17.3); White Blood Count 18.7 T/CUMM (4-12)
[2021-09-17 04:23] LABS: Microcytosis 1+
[2021-09-17 04:24] LABS: Hypochromia Slight
[2021-09-17 04:25] LABS: Acanthocytes Few; Burr Cells Slight; Ovalocytes Slight
[2021-09-17 04:26] LABS: Pappenheimer Bodies Slight
[2021-09-17 04:27] LABS: Platelet Estimate Decreased
[2021-09-17 04:29] LABS: INR 2.6
[2021-09-17 04:33] LABS: Albumin 1.4 G/DL (3.4-5.0); Calcium 7.1 MG/DL (8.5-10.1); Osmolality,Calculated 278.1 MOS/KG (273-304); Potassium 4.5 MMOL/L (3.5-5.1)
[2021-09-17 04:34] LABS: Bilirubin,Total 22.4 MG/DL (0.20-1.00)
[2021-09-17 04:45] LABS: PT Patient Result 26.6 SECS (10.5-12.0)
[2021-09-17 04:55] LABS: Cancer Antigen 19-9 35.11 U/ML (0-35); Carcinoembryonic Antigen 1.4 NG/ML (0.0-5.0)
[2021-09-17] MEDS: ALBUMIN 5% 25 GM/500 ML VIAL IV SCH ×3 (05:20→21:12)
[2021-09-17] MEDS: NICOTINE 21 MG/24 HR PATCH TRANSDERM SCH (08:47)
[2021-09-17] MEDS: LACTULOSE 20 GM/30 ML UDCUP PO SCH ×3 (08:48→20:22)
[2021-09-17] MEDS: MULTIVITAMIN (INTRINSIC) CAPSULE PO SCH (08:48)
[2021-09-17] MEDS: MIDODRINE 5 MG TABLET PO SCH ×2 (08:49→20:22)
[2021-09-17] MEDS: levETIRAcetam 500 MG TABLET PO SCH ×2 (08:49→20:22)
[2021-09-17] MEDS: FOLIC ACID 1 MG TABLET PO SCH (08:49)
[2021-09-17] MEDS: THIAMINE 100 MG TABLET PO SCH (08:49)
[2021-09-17] MEDS: PANTOPRAZOLE 40 MG TABLET PO SCH (08:49)
[2021-09-17] MEDS: RIFAXIMIN 550 MG TABLET PO SCH ×2 (08:49→20:22)
[2021-09-17 13:16] LABS: Hematocrit 20.6 VOL% (42.0-52.0); Hemoglobin 7.1 GM/DL (14.0-18.0)
[2021-09-17 13:24] LABS: INR 1.8; PT Patient Result 19.7 SECS (10.5-12.0)
[2021-09-17 13:27] LABS: Partial Thromboplastin Time 157.9 SECS (23.8-32.1)
[2021-09-17 13:29] LABS: Calcium 7.8 MG/DL (8.5-10.1); Osmolality,Calculated 279.5 MOS/KG (273-304); Potassium 3.6 MMOL/L (3.5-5.1)
[2021-09-17 14:11] LABS: Neutrophils,Peritoneal Fluid 83 %
[2021-09-17 14:12] LABS: RBC,Peritoneal Fluid 5615 T/CUMM
[2021-09-17] MEDS: cefTRIAXone 2,000 MG in SODIUM CHLORIDE 0.9% 100 ML IV SCH (20:22)
[2021-09-17 21:20] LABS: Basophils % 0.1 % (0.0-0.8); Eosinophils # 0.1 10*3/uL (0.0-0.87); Eosinophils % 0.4 % (0.00-10.9); Hematocrit 21.4 VOL% (42.0-52.0); Hemoglobin 7.1 GM/DL (14.0-18.0); Immature Granulocytes % 1.3 %; Immature Granulocytes Absolute 0.24 #; Lymphocytes % 11.2 % (21.2-54.2); Mean Corpuscular HGB Conc 33.2 GM/DL (32-36); Mean Corpuscular Volume 91.5 FL (87-102); Monocytes % 11.3 % (1.7-12.7); Neutrophils % 75.7 % (38.7-73.9); Platelet Count 45 T/CUMM (130-400); Red Blood Count 2.34 MC/CUMM (3.8-5.5); Red Cell Distribution Width 19.8 % (9.3-17.3); White Blood Count 18.1 T/CUMM (4-12)
[2021-09-17 21:53] LABS: Lymphocytes 10 % (20-55); Nucleated Red Blood Cells 1 (0-5); Segmented Neutrophils 77 % (50-85); Total Cells Counted 100
[2021-09-17 21:54] LABS: Polychromasia Slight
[2021-09-17 21:55] LABS: Pappenheimer Bodies Few; Platelet Estimate Decreased
[2021-09-18] MEDS: NOREPINEPHRINE 8 MG in SODIUM CHLORIDE 0.9% 242 ML IV PRN ×6 (01:19→21:17)
[2021-09-18] MEDS ORDERED: MORPHINE 2 MG/1 ML SYRINGE ONE (03:26)
[2021-09-18] MEDS: MORPHINE 2 MG/1 ML SYRINGE IV PRN ×2 (03:32→20:01)
[2021-09-18 04:11] LABS: Basophils % 0.1 % (0.0-0.8); Eosinophils # 0.2 10*3/uL (0.0-0.87); Eosinophils % 1.4 % (0.00-10.9); Hematocrit 18.5 VOL% (42.0-52.0); Immature Granulocytes % 0.9 %; Immature Granulocytes Absolute 0.14 #; Lymphocytes # 2.4 10*3/uL (1.4-4.0); Lymphocytes % 14.9 % (21.2-54.2); Mean Corpuscular HGB Conc 34.6 GM/DL (32-36); Mean Corpuscular Volume 89.8 FL (87-102); Monocytes % 8.7 % (1.7-12.7); NRBC # 0.22 10*3/uL; Platelet Count 51 T/CUMM (130-400); Red Blood Count 2.06 MC/CUMM (3.8-5.5); Red Cell Distribution Width 20.3 % (9.3-17.3); White Blood Count 16.1 T/CUMM (4-12)
[2021-09-18 04:15] LABS: Hemoglobin 6.4 GM/DL (14.0-18.0)
[2021-09-18 04:18] LABS: Albumin 1.8 G/DL (3.4-5.0); Calcium 7.7 MG/DL (8.5-10.1); Osmolality,Calculated 279.8 MOS/KG (273-304); Potassium 3.7 MMOL/L (3.5-5.1); Total Protein 5.1 G/DL (6.4-8.2)
[2021-09-18 04:24] LABS: Bilirubin,Total 22.1 MG/DL (0.20-1.00)
[2021-09-18 04:29] LABS: Hypochromia 1+
[2021-09-18 04:30] LABS: Acanthocytes Few; Anisocytosis 1+; Microcytosis 1+; Pappenheimer Bodies Slight; Platelet Estimate Decreased; Polychromasia Slight
[2021-09-18 04:31] LABS: Ovalocytes Slight
[2021-09-18] MEDS: ALBUMIN 5% 25 GM/500 ML VIAL IV SCH ×3 (05:00→22:17)
[2021-09-18 05:41] LABS: INR 2.2
[2021-09-18 05:43] LABS: PT Patient Result 23.4 SECS (10.5-12.0)
[2021-09-18] MEDS: NICOTINE 21 MG/24 HR PATCH TRANSDERM SCH (09:59)
[2021-09-18] MEDS: FOLIC ACID 1 MG TABLET PO SCH (10:00)
[2021-09-18] MEDS: RIFAXIMIN 550 MG TABLET PO SCH ×2 (10:03→20:02)
[2021-09-18] MEDS: THIAMINE 100 MG TABLET PO SCH (10:03)
[2021-09-18] MEDS: MULTIVITAMIN (INTRINSIC) CAPSULE PO SCH (10:03)
[2021-09-18] MEDS: levETIRAcetam 500 MG TABLET PO SCH ×2 (10:04→20:02)
[2021-09-18] MEDS: LACTULOSE 20 GM/30 ML UDCUP PO SCH ×4 (10:49→20:01)
[2021-09-18] MEDS: FAMOTIDINE 20 MG TABLET PO SCH (11:35)
[2021-09-18] MEDS: PANTOPRAZOLE 40 MG TABLET PO SCH (11:40)
[2021-09-18 13:56] LABS: Basophils % 0.1 % (0.0-0.8); Eosinophils # 0.2 10*3/uL (0.0-0.87); Eosinophils % 1.7 % (0.00-10.9); Hematocrit 24.7 VOL% (42.0-52.0); Hemoglobin 8.3 GM/DL (14.0-18.0); Immature Granulocytes % 1.3 %; Immature Granulocytes Absolute 0.18 #; Lymphocytes % 14.5 % (21.2-54.2); Mean Corpuscular HGB Conc 33.6 GM/DL (32-36); Mean Corpuscular Volume 89.5 FL (87-102); NRBC # 0.19 10*3/uL; Neutrophils % 73.4 % (38.7-73.9); Red Blood Count 2.76 MC/CUMM (3.8-5.5); Red Cell Distribution Width 19.4 % (9.3-17.3); White Blood Count 13.7 T/CUMM (4-12)
[2021-09-18 14:00] LABS: Platelet Count 27 T/CUMM (130-400)
[2021-09-18] MEDS: MIDODRINE 5 MG TABLET PO SCH ×3 (14:36→20:02)
[2021-09-18] MEDS: SODIUM CHLORIDE 0.9% 1,000 ML IV SCH (19:21)
[2021-09-18] MEDS: cefTRIAXone 2,000 MG in SODIUM CHLORIDE 0.9% 100 ML IV SCH (20:01)
[2021-09-19 03:47] LABS: Eosinophils # 0.3 10*3/uL (0.0-0.87); Eosinophils % 2.8 % (0.00-10.9); Hematocrit 19.4 VOL% (42.0-52.0); Hemoglobin 6.7 GM/DL (14.0-18.0); Immature Granulocytes % 0.9 %; Immature Granulocytes Absolute 0.09 #; Lymphocytes # 1.6 10*3/uL (1.4-4.0); Lymphocytes % 17.1 % (21.2-54.2); Mean Corpuscular HGB Conc 34.5 GM/DL (32-36); Mean Corpuscular Volume 88.2 FL (87-102); Monocytes % 8.5 % (1.7-12.7); NRBC # 0.14 10*3/uL; Neutrophils % 70.7 % (38.7-73.9); Red Cell Distribution Width 19.8 % (9.3-17.3); White Blood Count 9.5 T/CUMM (4-12)
[2021-09-19 03:49] LABS: Platelet Count 23 T/CUMM (130-400)
[2021-09-19 03:59] LABS: Calcium 7.9 MG/DL (8.5-10.1); Osmolality,Calculated 280.8 MOS/KG (273-304); Potassium 3.3 MMOL/L (3.5-5.1); Total Protein 4.9 G/DL (6.4-8.2)
[2021-09-19 04:01] LABS: Bilirubin,Total 21.6 MG/DL (0.20-1.00)
[2021-09-19] MEDS ORDERED: SODIUM CHLORIDE 0.9% 1,000 ML IV PRN (04:05)
[2021-09-19 04:07] LABS: INR 2.2
[2021-09-19 04:12] LABS: Hypochromia 1+; Microcytosis 1+; Platelet Estimate Decreased
[2021-09-19 04:13] LABS: PT Patient Result 23.2 SECS (10.5-12.0)
[2021-09-19] MEDS: ALBUMIN 5% 25 GM/500 ML VIAL IV SCH ×3 (05:15→21:02)
[2021-09-19] MEDS: MORPHINE 2 MG/1 ML SYRINGE IV PRN (05:32)
[2021-09-19] MEDS ORDERED: FAMOTIDINE 20 MG TABLET PO SCH (09:00)
[2021-09-19] MEDS: NICOTINE 21 MG/24 HR PATCH TRANSDERM SCH (09:47)
[2021-09-19] MEDS: LACTULOSE 20 GM/30 ML UDCUP PO SCH ×4 (09:47→20:33)
[2021-09-19] MEDS: FAMOTIDINE 20 MG TABLET PO SCH (09:48)
[2021-09-19] MEDS: MULTIVITAMIN (INTRINSIC) CAPSULE PO SCH (09:48)
[2021-09-19] MEDS: RIFAXIMIN 550 MG TABLET PO SCH ×2 (09:49→20:33)
[2021-09-19] MEDS: levETIRAcetam 500 MG TABLET PO SCH ×2 (09:49→20:33)
[2021-09-19] MEDS: THIAMINE 100 MG TABLET PO SCH (09:49)
[2021-09-19] MEDS: FOLIC ACID 1 MG TABLET PO SCH (09:49)
[2021-09-19] MEDS: MIDODRINE 5 MG TABLET PO SCH ×3 (09:49→20:33)
[2021-09-19 11:28] LABS: Basophils % 0.1 % (0.0-0.8); Eosinophils # 0.2 10*3/uL (0.0-0.87); Eosinophils % 2.4 % (0.00-10.9); Hematocrit 25.6 VOL% (42.0-52.0); Hemoglobin 8.9 GM/DL (14.0-18.0); Immature Granulocytes % 1.2 %; Immature Granulocytes Absolute 0.09 #; Lymphocytes # 1.2 10*3/uL (1.4-4.0); Lymphocytes % 15.9 % (21.2-54.2); Mean Corpuscular HGB Conc 34.8 GM/DL (32-36); Mean Corpuscular Volume 86.8 FL (87-102); Monocytes % 6.4 % (1.7-12.7); NRBC # 0.14 10*3/uL; Red Blood Count 2.95 MC/CUMM (3.8-5.5); White Blood Count 7.4 T/CUMM (4-12)
[2021-09-19 11:31] LABS: Platelet Count 16 T/CUMM (130-400)
[2021-09-19 12:12] LABS: Lymphocytes 11 % (20-55); Nucleated Red Blood Cells 4 (0-5); Segmented Neutrophils 82 % (50-85); Total Cells Counted 100
[2021-09-19 12:13] LABS: Platelet Estimate Decreased
[2021-09-19] MEDS: cefTRIAXone 2,000 MG in SODIUM CHLORIDE 0.9% 100 ML IV SCH (20:33)
[2021-09-19 21:30] LABS: Basophils % 0.2 % (0.0-0.8); Eosinophils # 0.2 10*3/uL (0.0-0.87); Eosinophils % 2.2 % (0.00-10.9); Hematocrit 27.8 VOL% (42.0-52.0); Hemoglobin 9.2 GM/DL (14.0-18.0); Immature Granulocytes % 1.8 %; Immature Granulocytes Absolute 0.17 #; Lymphocytes # 1.4 10*3/uL (1.4-4.0); Lymphocytes % 14.9 % (21.2-54.2); Mean Corpuscular HGB Conc 33.1 GM/DL (32-36); Mean Corpuscular Volume 91.4 FL (87-102); Monocytes % 8.3 % (1.7-12.7); Neutrophils % 72.6 % (38.7-73.9); Red Blood Count 3.04 MC/CUMM (3.8-5.5); Red Cell Distribution Width 18.9 % (9.3-17.3); White Blood Count 9.4 T/CUMM (4-12)
[2021-09-19 21:35] LABS: Platelet Count 21 T/CUMM (130-400)
[2021-09-20 01:06] LABS: Hypochromia Slight; Lymphocytes 12 % (20-55); Nucleated Red Blood Cells 3 (0-5); Platelet Estimate Decreased; Segmented Neutrophils 84 % (50-85); Total Cells Counted 100
[2021-09-20] MEDS: ALBUMIN 5% 25 GM/500 ML VIAL IV SCH ×3 (05:01→21:32)
[2021-09-20 05:09] LABS: Albumin 1.9 G/DL (3.4-5.0); Calcium 8.3 MG/DL (8.5-10.1); Osmolality,Calculated 277.8 MOS/KG (273-304); Potassium 3.5 MMOL/L (3.5-5.1); Total Protein 5.3 G/DL (6.4-8.2)
[2021-09-20 05:14] LABS: Bilirubin,Total 24.7 MG/DL (0.20-1.00)
[2021-09-20 05:38] LABS: Basophils % 0.1 % (0.0-0.8); Eosinophils # 0.3 10*3/uL (0.0-0.87); Eosinophils % 3.1 % (0.00-10.9); Hematocrit 25.8 VOL% (42.0-52.0); Immature Granulocytes % 1.2 %; Immature Granulocytes Absolute 0.11 #; Lymphocytes # 1.4 10*3/uL (1.4-4.0); Lymphocytes % 15.6 % (21.2-54.2); Mean Corpuscular HGB Conc 34.9 GM/DL (32-36); Mean Corpuscular Volume 88.1 FL (87-102); Monocytes % 10.7 % (1.7-12.7); NRBC # 0.08 10*3/uL; Neutrophils % 69.3 % (38.7-73.9); Red Blood Count 2.93 MC/CUMM (3.8-5.5); Red Cell Distribution Width 18.4 % (9.3-17.3); White Blood Count 8.9 T/CUMM (4-12)
[2021-09-20 05:39] LABS: Platelet Count 18 T/CUMM (130-400)
[2021-09-20] MEDS ORDERED: SODIUM CHLORIDE 0.9% 1,000 ML IV PRN (05:45)
[2021-09-20 05:49] LABS: INR 2.1; PT Patient Result 22.4 SECS (10.5-12.0)
[2021-09-20 06:20] LABS: Hypochromia Slight; Platelet Estimate Decreased
[2021-09-20] MEDS: RIFAXIMIN 550 MG TABLET PO SCH ×2 (09:18→20:36)
[2021-09-20] MEDS: FAMOTIDINE 20 MG TABLET PO SCH (09:18)
[2021-09-20] MEDS: LACTULOSE 20 GM/30 ML UDCUP PO SCH ×3 (09:18→20:36)
[2021-09-20] MEDS: MIDODRINE 5 MG TABLET PO SCH ×3 (09:18→20:36)
[2021-09-20] MEDS: levETIRAcetam 500 MG TABLET PO SCH ×3 (09:18→21:39)
[2021-09-20] MEDS: NICOTINE 21 MG/24 HR PATCH TRANSDERM SCH (09:19)
[2021-09-20] MEDS: FOLIC ACID 1 MG TABLET PO SCH (09:19)
[2021-09-20] MEDS: MULTIVITAMIN (INTRINSIC) CAPSULE PO SCH (09:19)
[2021-09-20] MEDS: THIAMINE 100 MG TABLET PO SCH (10:16)
[2021-09-20] MEDS ORDERED: LACTULOSE 320 GM/480 ML BOTTLE RECTAL SCH (10:33)
[2021-09-20] MEDS: cefTRIAXone 2,000 MG in SODIUM CHLORIDE 0.9% 100 ML IV SCH (20:35)
[2021-09-21] MEDS: ALBUMIN 5% 25 GM/500 ML VIAL IV SCH ×3 (05:18→21:15)
[2021-09-21 08:20] LABS: Basophils % 0.2 % (0.0-0.8); Eosinophils # 0.3 10*3/uL (0.0-0.87); Hematocrit 26.3 VOL% (42.0-52.0); Hemoglobin 9.1 GM/DL (14.0-18.0); Immature Granulocytes % 0.9 %; Immature Granulocytes Absolute 0.08 #; Lymphocytes # 1.5 10*3/uL (1.4-4.0); Lymphocytes % 17.4 % (21.2-54.2); Mean Corpuscular HGB Conc 34.6 GM/DL (32-36); Mean Corpuscular Volume 88.9 FL (87-102); Monocytes % 13.3 % (1.7-12.7); NRBC # 0.04 10*3/uL; Neutrophils % 65.2 % (38.7-73.9); Red Blood Count 2.96 MC/CUMM (3.8-5.5); Red Cell Distribution Width 18.9 % (9.3-17.3); White Blood Count 8.5 T/CUMM (4-12)
[2021-09-21 08:21] LABS: Platelet Count 24 T/CUMM (130-400)
[2021-09-21 08:56] LABS: Albumin 2.1 G/DL (3.4-5.0); Calcium 8.6 MG/DL (8.5-10.1); Osmolality,Calculated 283.7 MOS/KG (273-304); Potassium 3.1 MMOL/L (3.5-5.1); Total Protein 5.4 G/DL (6.4-8.2)
[2021-09-21 09:01] LABS: Bilirubin,Total 24.5 MG/DL (0.20-1.00)
[2021-09-21] MEDS: RIFAXIMIN 550 MG TABLET PO SCH ×2 (09:24→20:09)
[2021-09-21] MEDS: levETIRAcetam 500 MG TABLET PO SCH ×2 (09:24→20:09)
[2021-09-21] MEDS: LACTULOSE 20 GM/30 ML UDCUP PO SCH ×3 (09:24→20:09)
[2021-09-21] MEDS: FAMOTIDINE 20 MG TABLET PO SCH (09:25)
[2021-09-21] MEDS: THIAMINE 100 MG TABLET PO SCH (09:25)
[2021-09-21] MEDS: FOLIC ACID 1 MG TABLET PO SCH (09:25)
[2021-09-21] MEDS: MIDODRINE 5 MG TABLET PO SCH ×3 (09:25→20:09)
[2021-09-21] MEDS: MULTIVITAMIN (INTRINSIC) CAPSULE PO SCH (09:25)
[2021-09-21] MEDS: NICOTINE 21 MG/24 HR PATCH TRANSDERM SCH (10:15)
[2021-09-21] MEDS ORDERED: POTASSIUM CHLORIDE 20 MEQ TABLET PO ONE (10:17)
[2021-09-21] MEDS: cefTRIAXone 2,000 MG in SODIUM CHLORIDE 0.9% 100 ML IV SCH (20:09)
[2021-09-22] MEDS: ALBUMIN 5% 25 GM/500 ML VIAL IV SCH ×2 (05:39→17:49)
[2021-09-22 07:45] LABS: Basophils % 0.2 % (0.0-0.8); Eosinophils # 0.2 10*3/uL (0.0-0.87); Eosinophils % 2.7 % (0.00-10.9); Hematocrit 24.3 VOL% (42.0-52.0); Hemoglobin 8.4 GM/DL (14.0-18.0); Immature Granulocytes % 0.8 %; Immature Granulocytes Absolute 0.07 #; Lymphocytes # 1.4 10*3/uL (1.4-4.0); Lymphocytes % 15.9 % (21.2-54.2); Mean Corpuscular HGB Conc 34.6 GM/DL (32-36); Monocytes % 14.3 % (1.7-12.7); NRBC # 0.04 10*3/uL; Neutrophils % 66.1 % (38.7-73.9); Red Blood Count 2.73 MC/CUMM (3.8-5.5); White Blood Count 8.9 T/CUMM (4-12)
[2021-09-22 07:48] LABS: Platelet Count 24 T/CUMM (130-400)
[2021-09-22 07:54] LABS: INR 2.1
[2021-09-22 08:04] LABS: Hypochromia 1+; Microcytosis 1+; Platelet Estimate Decreased
[2021-09-22 08:11] LABS: Albumin 2.1 G/DL (3.4-5.0); Calcium 8.7 MG/DL (8.5-10.1); Potassium 3.4 MMOL/L (3.5-5.1); Total Protein 5.3 G/DL (6.4-8.2)
[2021-09-22] MEDS: LACTULOSE 20 GM/30 ML UDCUP PO SCH ×3 (10:38→21:59)
[2021-09-22] MEDS: levETIRAcetam 500 MG TABLET PO SCH ×2 (10:39→21:59)
[2021-09-22] MEDS: NICOTINE 21 MG/24 HR PATCH TRANSDERM SCH (10:39)
[2021-09-22] MEDS: FOLIC ACID 1 MG TABLET PO SCH (10:39)
[2021-09-22] MEDS: FAMOTIDINE 20 MG TABLET PO SCH (10:40)
[2021-09-22] MEDS: THIAMINE 100 MG TABLET PO SCH (10:40)
[2021-09-22] MEDS: MIDODRINE 5 MG TABLET PO SCH ×3 (10:40→21:59)
[2021-09-22] MEDS: RIFAXIMIN 550 MG TABLET PO SCH ×2 (10:40→21:59)
[2021-09-22] MEDS: MULTIVITAMIN (INTRINSIC) CAPSULE PO SCH (10:40)
[2021-09-22] MEDS ORDERED: HEPARIN/NACL 0.9% 2 UNITS/ML 2,000 UNIT/1,000 ML BAG IV ONE (13:21)
[2021-09-22] MEDS: AMPICILLIN INJ 1,000 MG in SODIUM CHLORIDE 0.9% 100 ML IV SCH (18:53)
[2021-09-23] MEDS: AMPICILLIN INJ 1,000 MG in SODIUM CHLORIDE 0.9% 100 ML IV SCH ×4 (00:50→20:09)
[2021-09-23] MEDS: ALBUMIN 5% 25 GM/500 ML VIAL IV SCH ×3 (01:16→17:38)
[2021-09-23 07:06] LABS: Basophils % 0.2 % (0.0-0.8); Eosinophils # 0.3 10*3/uL (0.0-0.87); Eosinophils % 2.6 % (0.00-10.9); Hematocrit 22.8 VOL% (42.0-52.0); Hemoglobin 8.1 GM/DL (14.0-18.0); Immature Granulocytes % 0.6 %; Immature Granulocytes Absolute 0.06 #; Lymphocytes # 1.6 10*3/uL (1.4-4.0); Lymphocytes % 16.1 % (21.2-54.2); Mean Corpuscular HGB Conc 35.5 GM/DL (32-36); Mean Corpuscular Volume 88.7 FL (87-102); Monocytes % 15.8 % (1.7-12.7); NRBC # 0.05 10*3/uL; Neutrophils % 64.7 % (38.7-73.9); Red Blood Count 2.57 MC/CUMM (3.8-5.5); Red Cell Distribution Width 20.2 % (9.3-17.3)
[2021-09-23 07:21] LABS: Platelet Count 26 T/CUMM (130-400)
[2021-09-23 07:25] LABS: Eosinophils 2 % (0-10); Hypochromia 1+; Lymphocytes 15 % (20-55); Microcytosis 1+; Platelet Estimate Decreased; Segmented Neutrophils 72 % (50-85); Total Cells Counted 100
[2021-09-23 07:30] LABS: Calcium 8.4 MG/DL (8.5-10.1); Osmolality,Calculated 279.8 MOS/KG (273-304); Potassium 3.4 MMOL/L (3.5-5.1); Total Protein 5.3 G/DL (6.4-8.2)
[2021-09-23 07:32] LABS: Bilirubin,Total 25.3 MG/DL (0.20-1.00)
[2021-09-23] MEDS: levETIRAcetam 500 MG TABLET PO SCH ×2 (09:01→20:09)
[2021-09-23] MEDS: THIAMINE 100 MG TABLET PO SCH (09:01)
[2021-09-23] MEDS: RIFAXIMIN 550 MG TABLET PO SCH ×2 (09:01→20:10)
[2021-09-23] MEDS: LACTULOSE 20 GM/30 ML UDCUP PO SCH ×3 (09:01→20:09)
[2021-09-23] MEDS: MULTIVITAMIN (INTRINSIC) CAPSULE PO SCH (09:01)
[2021-09-23] MEDS: FOLIC ACID 1 MG TABLET PO SCH (09:01)
[2021-09-23] MEDS: MIDODRINE 5 MG TABLET PO SCH ×3 (09:01→20:10)
[2021-09-23] MEDS: NICOTINE 21 MG/24 HR PATCH TRANSDERM SCH (09:02)
[2021-09-23] MEDS: FAMOTIDINE 20 MG TABLET PO SCH (09:02)
[2021-09-23] MEDS: MENTHOL/ZINC OXIDE OINT 71 GM JAR TOP SCH ×2 (16:25→20:09)
[2021-09-24] MEDS: ALBUMIN 5% 25 GM/500 ML VIAL IV SCH ×3 (02:08→18:35)
[2021-09-24] MEDS: AMPICILLIN INJ 1,000 MG in SODIUM CHLORIDE 0.9% 100 ML IV SCH ×3 (03:08→21:17)
[2021-09-24 03:44] LABS: Basophils % 0.3 % (0.0-0.8); Eosinophils # 0.2 10*3/uL (0.0-0.87); Eosinophils % 1.7 % (0.00-10.9); Hematocrit 22.2 VOL% (42.0-52.0); Hemoglobin 7.6 GM/DL (14.0-18.0); Immature Granulocytes % 0.5 %; Immature Granulocytes Absolute 0.06 #; Lymphocytes # 1.9 10*3/uL (1.4-4.0); Mean Corpuscular HGB Conc 34.2 GM/DL (32-36); Mean Corpuscular Volume 90.6 FL (87-102); Mean Platelet Volume 12.5 FL (9.6-12.0); Monocytes % 15.5 % (1.7-12.7); NRBC # 0.03 10*3/uL; Platelet Count 40 T/CUMM (130-400); Red Blood Count 2.45 MC/CUMM (3.8-5.5); Red Cell Distribution Width 20.8 % (9.3-17.3)
[2021-09-24 03:55] LABS: Calcium 8.6 MG/DL (8.5-10.1); Potassium 3.7 MMOL/L (3.5-5.1)
[2021-09-24 04:01] LABS: Hypochromia 1+
[2021-09-24 04:02] LABS: Anisocytosis 1+; Microcytosis 1+
[2021-09-24 04:03] LABS: Acanthocytes Few; Burr Cells Slight; Platelet Estimate Decreased; Target Cells Slight
[2021-09-24] MEDS: MULTIVITAMIN (INTRINSIC) CAPSULE PO SCH (08:17)
[2021-09-24] MEDS: THIAMINE 100 MG TABLET PO SCH (08:17)
[2021-09-24] MEDS: levETIRAcetam 500 MG TABLET PO SCH ×2 (08:17→21:14)
[2021-09-24] MEDS: FOLIC ACID 1 MG TABLET PO SCH (08:17)
[2021-09-24] MEDS: LACTULOSE 20 GM/30 ML UDCUP PO SCH ×3 (08:17→21:14)
[2021-09-24] MEDS: RIFAXIMIN 550 MG TABLET PO SCH ×2 (08:17→21:14)
[2021-09-24] MEDS: NICOTINE 21 MG/24 HR PATCH TRANSDERM SCH (08:17)
[2021-09-24] MEDS: FAMOTIDINE 20 MG TABLET PO SCH (08:17)
[2021-09-24] MEDS: MIDODRINE 5 MG TABLET PO SCH ×3 (08:17→21:14)
[2021-09-24] MEDS: MENTHOL/ZINC OXIDE OINT 71 GM JAR TOP SCH ×2 (08:31→21:17)
[2021-09-24 15:04] LABS: Neutrophils,Peritoneal Fluid 49 %
[2021-09-24 15:05] LABS: RBC,Peritoneal Fluid 27634 T/CUMM
[2021-09-25] MEDS: ALBUMIN 5% 25 GM/500 ML VIAL IV SCH ×3 (02:23→22:01)
[2021-09-25] MEDS: AMPICILLIN INJ 1,000 MG in SODIUM CHLORIDE 0.9% 100 ML IV SCH ×2 (03:30→11:24)
[2021-09-25 05:58] LABS: Basophils % 0.3 % (0.0-0.8); Eosinophils # 0.1 10*3/uL (0.0-0.87); Eosinophils % 1.1 % (0.00-10.9); Hematocrit 20.7 VOL% (42.0-52.0); Immature Granulocytes % 0.8 %; Immature Granulocytes Absolute 0.09 #; Lymphocytes # 1.9 10*3/uL (1.4-4.0); Lymphocytes % 15.6 % (21.2-54.2); Mean Corpuscular HGB Conc 33.8 GM/DL (32-36); Mean Corpuscular Volume 92.4 FL (87-102); Mean Platelet Volume 12.3 FL (9.6-12.0); Neutrophils % 65.2 % (38.7-73.9); Red Blood Count 2.24 MC/CUMM (3.8-5.5); Red Cell Distribution Width 21.2 % (9.3-17.3); White Blood Count 11.9 T/CUMM (4-12)
[2021-09-25 06:01] LABS: Platelet Count 38 T/CUMM (130-400)
[2021-09-25 06:16] LABS: Calcium 8.7 MG/DL (8.5-10.1); Osmolality,Calculated 277.8 MOS/KG (273-304); Potassium 3.8 MMOL/L (3.5-5.1)
[2021-09-25 06:26] LABS: Band Neutrophils 1 % (0-10); Eosinophils 1 % (0-10); Hypochromia 1+; Lymphocytes 7 % (20-55); Microcytosis 1+; Platelet Estimate Decreased; Segmented Neutrophils 84 % (50-85); Total Cells Counted 100
[2021-09-25 06:27] LABS: Acanthocytes Few
[2021-09-25] MEDS: FAMOTIDINE 20 MG TABLET PO SCH (08:49)
[2021-09-25] MEDS: levETIRAcetam 500 MG TABLET PO SCH ×2 (08:49→21:01)
[2021-09-25] MEDS: RIFAXIMIN 550 MG TABLET PO SCH ×2 (08:49→21:01)
[2021-09-25] MEDS: THIAMINE 100 MG TABLET PO SCH (08:49)
[2021-09-25] MEDS: NICOTINE 21 MG/24 HR PATCH TRANSDERM SCH (08:49)
[2021-09-25] MEDS: LACTULOSE 20 GM/30 ML UDCUP PO SCH ×3 (08:49→21:01)
[2021-09-25] MEDS: MULTIVITAMIN (INTRINSIC) CAPSULE PO SCH (08:49)
[2021-09-25] MEDS: MENTHOL/ZINC OXIDE OINT 71 GM JAR TOP SCH ×2 (08:50→21:01)
[2021-09-25] MEDS: FOLIC ACID 1 MG TABLET PO SCH (08:50)
[2021-09-25] MEDS: MIDODRINE 5 MG TABLET PO SCH ×3 (08:50→21:01)
[2021-09-25] MEDS ORDERED: SODIUM CHLORIDE 0.9% 1,000 ML IV PRN (14:15)
[2021-09-25] MEDS: AMPICILLIN 500 MG CAPSULE PO SCH ×2 (15:14→21:01)
[2021-09-26] MEDS: ALBUMIN 5% 25 GM/500 ML VIAL IV SCH ×3 (03:57→21:21)
[2021-09-26 05:17] LABS: Basophils # 0.1 10*3/uL (0.0-0.2); Basophils % 0.4 % (0.0-0.8); Eosinophils # 0.2 10*3/uL (0.0-0.87); Eosinophils % 1.2 % (0.00-10.9); Hematocrit 21.5 VOL% (42.0-52.0); Hemoglobin 7.3 GM/DL (14.0-18.0); Immature Granulocytes % 0.7 %; Immature Granulocytes Absolute 0.09 #; Lymphocytes # 1.8 10*3/uL (1.4-4.0); Lymphocytes % 13.8 % (21.2-54.2); Mean Corpuscular Volume 91.1 FL (87-102); Mean Platelet Volume 12.3 FL (9.6-12.0); Neutrophils % 69.9 % (38.7-73.9); Platelet Count 56 T/CUMM (130-400); Red Blood Count 2.36 MC/CUMM (3.8-5.5); Red Cell Distribution Width 21.3 % (9.3-17.3)
[2021-09-26 05:38] LABS: Calcium 8.8 MG/DL (8.5-10.1); Osmolality,Calculated 276.1 MOS/KG (273-304); Potassium 4.1 MMOL/L (3.5-5.1)
[2021-09-26 06:25] LABS: Platelet Estimate Adequate
[2021-09-26] MEDS: FAMOTIDINE 20 MG TABLET PO SCH (08:39)
[2021-09-26] MEDS: FOLIC ACID 1 MG TABLET PO SCH (08:39)
[2021-09-26] MEDS: AMPICILLIN 500 MG CAPSULE PO SCH ×3 (08:39→21:20)
[2021-09-26] MEDS: LACTULOSE 20 GM/30 ML UDCUP PO SCH ×3 (08:39→21:21)
[2021-09-26] MEDS: THIAMINE 100 MG TABLET PO SCH (08:39)
[2021-09-26] MEDS: levETIRAcetam 500 MG TABLET PO SCH ×2 (08:39→21:21)
[2021-09-26] MEDS: RIFAXIMIN 550 MG TABLET PO SCH ×2 (08:39→21:20)
[2021-09-26] MEDS: MULTIVITAMIN (INTRINSIC) CAPSULE PO SCH (08:40)
[2021-09-26] MEDS: MIDODRINE 5 MG TABLET PO SCH ×3 (17:00→21:21)
[2021-09-26] MEDS: NICOTINE 21 MG/24 HR PATCH TRANSDERM SCH (17:03)
[2021-09-26] MEDS: MENTHOL/ZINC OXIDE OINT 71 GM JAR TOP SCH ×2 (17:04→21:21)
[2021-09-27] MEDS: ALBUMIN 5% 25 GM/500 ML VIAL IV SCH ×3 (05:14→16:45)
[2021-09-27 06:55] LABS: Basophils % 0.4 % (0.0-0.8); Eosinophils # 0.1 10*3/uL (0.0-0.87); Eosinophils % 1.2 % (0.00-10.9); Immature Granulocytes % 0.5 %; Immature Granulocytes Absolute 0.05 #; Lymphocytes # 1.8 10*3/uL (1.4-4.0); Lymphocytes % 17.2 % (21.2-54.2); Mean Corpuscular HGB Conc 33.9 GM/DL (32-36); Mean Corpuscular Volume 92.1 FL (87-102); Mean Platelet Volume 11.2 FL (9.6-12.0); Monocytes % 14.1 % (1.7-12.7); Neutrophils % 66.6 % (38.7-73.9); Red Blood Count 1.89 MC/CUMM (3.8-5.5); Red Cell Distribution Width 21.1 % (9.3-17.3); White Blood Count 10.4 T/CUMM (4-12)
[2021-09-27 06:58] LABS: Hemoglobin 5.9 GM/DL (14.0-18.0)
[2021-09-27 07:17] LABS: Hypochromia 2+; Microcytosis 1+; Platelet Estimate Decreased; Target Cells Slight
[2021-09-27 07:37] LABS: Albumin 2.4 G/DL (3.4-5.0); Calcium 8.2 MG/DL (8.5-10.1); Osmolality,Calculated 277.8 MOS/KG (273-304); Potassium 4.2 MMOL/L (3.5-5.1); Total Protein 4.9 G/DL (6.4-8.2)
[2021-09-27 07:42] LABS: Bilirubin,Total 28.7 MG/DL (0.20-1.00)
[2021-09-27 08:38] LABS: Hematocrit 16.5 VOL% (42.0-52.0); Hemoglobin 5.6 GM/DL (14.0-18.0)
[2021-09-27] MEDS: NICOTINE 21 MG/24 HR PATCH TRANSDERM SCH (08:43)
[2021-09-27] MEDS: FAMOTIDINE 20 MG TABLET PO SCH (08:44)
[2021-09-27] MEDS: FOLIC ACID 1 MG TABLET PO SCH (08:44)
[2021-09-27] MEDS: levETIRAcetam 500 MG TABLET PO SCH ×2 (08:44→21:24)
[2021-09-27] MEDS: RIFAXIMIN 550 MG TABLET PO SCH ×2 (08:44→21:24)
[2021-09-27] MEDS: MIDODRINE 5 MG TABLET PO SCH ×3 (08:44→21:25)
[2021-09-27] MEDS: MULTIVITAMIN (INTRINSIC) CAPSULE PO SCH (08:44)
[2021-09-27] MEDS: AMPICILLIN 500 MG CAPSULE PO SCH (08:44)
[2021-09-27] MEDS: THIAMINE 100 MG TABLET PO SCH (08:44)
[2021-09-27] MEDS: LACTULOSE 20 GM/30 ML UDCUP PO SCH ×3 (08:45→21:24)
[2021-09-27] MEDS ORDERED: SODIUM CHLORIDE 0.9% 1,000 ML IV PRN (08:49)
[2021-09-27] MEDS: MENTHOL/ZINC OXIDE OINT 71 GM JAR TOP SCH ×2 (08:51→21:24)
[2021-09-27] MEDS ORDERED: IBUPROFEN 400 MG TABLET PO ONE (11:00)
[2021-09-27] MEDS: PANTOPRAZOLE 40 MG VIAL IV SCH ×2 (15:22→21:25)
[2021-09-27 17:47] LABS: INR 2.5
[2021-09-27 17:56] LABS: PT Patient Result 26.8 SECS (10.5-12.0)
[2021-09-27] MEDS: AMPICILLIN INJ 2,000 MG in SODIUM CHLORIDE 0.9% 100 ML IV SCH ×2 (18:11→21:25)
[2021-09-27 18:35] LABS: Hematocrit 21.9 VOL% (42.0-52.0); Hemoglobin 7.3 GM/DL (14.0-18.0)
[2021-09-28] MEDS: ALBUMIN 5% 25 GM/500 ML VIAL IV SCH ×3 (01:21→17:15)
[2021-09-28] MEDS: AMPICILLIN INJ 2,000 MG in SODIUM CHLORIDE 0.9% 100 ML IV SCH ×4 (04:48→21:37)
[2021-09-28 05:00] LABS: Basophils # 0.1 10*3/uL (0.0-0.2); Basophils % 0.5 % (0.0-0.8); Eosinophils # 0.2 10*3/uL (0.0-0.87); Eosinophils % 1.9 % (0.00-10.9); Hematocrit 21.8 VOL% (42.0-52.0); Immature Granulocytes % 0.4 %; Immature Granulocytes Absolute 0.04 #; Lymphocytes # 1.3 10*3/uL (1.4-4.0); Mean Corpuscular HGB Conc 34.9 GM/DL (32-36); Mean Corpuscular Volume 88.6 FL (87-102); Mean Platelet Volume 11.8 FL (9.6-12.0); Monocytes % 11.6 % (1.7-12.7); Neutrophils % 71.6 % (38.7-73.9); Red Cell Distribution Width 20.1 % (9.3-17.3); White Blood Count 9.5 T/CUMM (4-12)
[2021-09-28 05:10] LABS: INR 2.7; PT Patient Result 27.7 SECS (10.5-12.0)
[2021-09-28 05:21] LABS: Platelet Count 51 T/CUMM (130-400)
[2021-09-28 05:22] LABS: Red Blood Count 2.46 MC/CUMM (3.8-5.5)
[2021-09-28 05:23] LABS: Hemoglobin 7.6 GM/DL (14.0-18.0)
[2021-09-28 05:25] LABS: Albumin 2.5 G/DL (3.4-5.0); Calcium 8.7 MG/DL (8.5-10.1); Osmolality,Calculated 283.8 MOS/KG (273-304); Potassium 4.3 MMOL/L (3.5-5.1); Total Protein 5.1 G/DL (6.4-8.2)
[2021-09-28 05:31] LABS: Hypochromia 1+; Microcytosis 1+; Platelet Estimate Decreased
[2021-09-28 05:36] LABS: Bilirubin,Total 29.4 MG/DL (0.20-1.00)
[2021-09-28] MEDS: NICOTINE 21 MG/24 HR PATCH TRANSDERM SCH (09:54)
[2021-09-28] MEDS: MENTHOL/ZINC OXIDE OINT 71 GM JAR TOP SCH ×2 (09:54→21:38)
[2021-09-28] MEDS: LACTULOSE 20 GM/30 ML UDCUP PO SCH ×3 (09:55→21:38)
[2021-09-28] MEDS: PANTOPRAZOLE 40 MG VIAL IV SCH ×2 (09:55→21:38)
[2021-09-28] MEDS: levETIRAcetam 500 MG TABLET PO SCH ×2 (09:55→21:38)
[2021-09-28] MEDS: MULTIVITAMIN (INTRINSIC) CAPSULE PO SCH (09:56)
[2021-09-28] MEDS: THIAMINE 100 MG TABLET PO SCH (09:56)
[2021-09-28] MEDS: RIFAXIMIN 550 MG TABLET PO SCH ×2 (09:56→21:38)
[2021-09-28] MEDS: MIDODRINE 5 MG TABLET PO SCH ×3 (09:56→21:38)
[2021-09-28] MEDS: FOLIC ACID 1 MG TABLET PO SCH (09:56)
[2021-09-29] MEDS: ALBUMIN 5% 25 GM/500 ML VIAL IV SCH ×3 (01:27→20:08)
[2021-09-29] MEDS: AMPICILLIN INJ 2,000 MG in SODIUM CHLORIDE 0.9% 100 ML IV SCH ×3 (04:30→19:38)
[2021-09-29 05:29] LABS: Basophils % 0.3 % (0.0-0.8); Eosinophils # 0.2 10*3/uL (0.0-0.87); Eosinophils % 1.3 % (0.00-10.9); Immature Granulocytes % 0.5 %; Immature Granulocytes Absolute 0.06 #; Lymphocytes # 1.3 10*3/uL (1.4-4.0); Lymphocytes % 10.2 % (21.2-54.2); Mean Corpuscular HGB Conc 33.3 GM/DL (32-36); Mean Corpuscular Volume 91.6 FL (87-102); Mean Platelet Volume 11.9 FL (9.6-12.0); Monocytes % 10.6 % (1.7-12.7); Neutrophils % 77.1 % (38.7-73.9); Platelet Count 82 T/CUMM (130-400); Red Cell Distribution Width 20.7 % (9.3-17.3)
[2021-09-29 05:30] LABS: Red Blood Count 1.67 MC/CUMM (3.8-5.5); White Blood Count 12.9 T/CUMM (4-12)
[2021-09-29 05:32] LABS: Hematocrit 15.3 VOL% (42.0-52.0); Hemoglobin 5.1 GM/DL (14.0-18.0)
[2021-09-29 05:53] LABS: Albumin 2.6 G/DL (3.4-5.0); Calcium 8.6 MG/DL (8.5-10.1); Osmolality,Calculated 289.8 MOS/KG (273-304); Potassium 4.6 MMOL/L (3.5-5.1); Total Protein 4.8 G/DL (6.4-8.2)
[2021-09-29 05:55] LABS: Bilirubin,Total 25.4 MG/DL (0.20-1.00)
[2021-09-29 05:57] LABS: Hypochromia 2+; Microcytosis 1+; Ovalocytes Slight; Platelet Estimate Decreased; Target Cells Few
[2021-09-29 06:14] LABS: INR 2.9
[2021-09-29 06:16] LABS: PT Patient Result 30.4 SECS (10.5-12.0)
[2021-09-29 06:17] LABS: Partial Thromboplastin Time 116.6 SECS (23.8-32.1)
[2021-09-29 08:33] LABS: Hematocrit 17.4 VOL% (42.0-52.0); Platelet Count 37 T/CUMM (130-400)
[2021-09-29] MEDS ORDERED: SODIUM CHLORIDE 0.9% 1,000 ML IV PRN (08:34)
[2021-09-29] MEDS: MENTHOL/ZINC OXIDE OINT 71 GM JAR TOP SCH ×2 (09:30→20:13)
[2021-09-29] MEDS: NICOTINE 21 MG/24 HR PATCH TRANSDERM SCH (10:29)
[2021-09-29] MEDS: FOLIC ACID 1 MG TABLET PO SCH (10:32)
[2021-09-29] MEDS: MIDODRINE 5 MG TABLET PO SCH ×3 (10:32→20:31)
[2021-09-29] MEDS: LACTULOSE 20 GM/30 ML UDCUP PO SCH ×4 (10:32→20:11)
[2021-09-29] MEDS: levETIRAcetam 500 MG TABLET PO SCH ×2 (10:32→20:12)
[2021-09-29] MEDS: MULTIVITAMIN (INTRINSIC) CAPSULE PO SCH (10:33)
[2021-09-29] MEDS: THIAMINE 100 MG TABLET PO SCH (10:33)
[2021-09-29] MEDS: PANTOPRAZOLE 40 MG VIAL IV SCH ×2 (11:02→20:11)
[2021-09-29 14:54] LABS: Basophils # 0.1 10*3/uL (0.0-0.2); Basophils % 0.4 % (0.0-0.8); Eosinophils # 0.1 10*3/uL (0.0-0.87); Eosinophils % 0.5 % (0.00-10.9); Immature Granulocytes % 0.6 %; Immature Granulocytes Absolute 0.08 #; Lymphocytes # 1.7 10*3/uL (1.4-4.0); Lymphocytes % 12.1 % (21.2-54.2); Mean Corpuscular HGB Conc 34.9 GM/DL (32-36); Mean Corpuscular Volume 90.7 FL (87-102); Mean Platelet Volume 12.1 FL (9.6-12.0); Monocytes % 11.4 % (1.7-12.7); NRBC # 0.02 10*3/uL; Red Blood Count 1.83 MC/CUMM (3.8-5.5); Red Cell Distribution Width 18.2 % (9.3-17.3); White Blood Count 14.1 T/CUMM (4-12)
[2021-09-29 14:56] LABS: Hematocrit 16.6 VOL% (42.0-52.0); Hemoglobin 5.8 GM/DL (14.0-18.0); Platelet Count 36 T/CUMM (130-400)
[2021-09-29] MEDS ORDERED: CALCIUM GLUCONATE RIDER 1,000 MG/50 ML PREMIX IV ONE (14:59)
[2021-09-29 15:03] LABS: INR 2.5; PT Patient Result 25.9 SECS (10.5-12.0)
[2021-09-29] MEDS ORDERED: MIDAZOLAM 2 MG/2 ML VIAL ONE (15:49)
[2021-09-29] MEDS ORDERED: propofoL 200 MG/20 ML VIAL IV ONE (15:49)
[2021-09-29] MEDS ORDERED: LIDOCAINE 2% 5 ML VIAL ONE (15:49)
[2021-09-29] MEDS ORDERED: fentaNYL 100 MCG/2 ML VIAL ONE (15:51)
[2021-09-29] MEDS ORDERED: KETAMINE 500 MG/10 ML VIAL ONE (16:08)
[2021-09-29] MEDS ORDERED: SUCCINYLCHOLINE 200 MG/10 ML VIAL ONE (16:26)
[2021-09-29] MEDS ORDERED: ROCURONIUM 50 MG/5 ML VIAL IV ONE (16:26)
[2021-09-29 18:27] LABS: Arterial Base Excess iSTAT -3 MMOL/L (-2.5-2.5); Arterial Bicarbonate iSTAT 21.3 MMOL/L (20-26); Arterial O2 Saturation iSTAT 100 % (95-100); Arterial PCO2 iSTAT 35 MM HG (35-48); Arterial PO2 iSTAT 336 MM HG (80-95); Arterial Total CO2 iSTAT 22 MMO/L (23-27)
[2021-09-29 19:56] LABS: Basophils % 0.4 % (0.0-0.8); Eosinophils # 0.1 10*3/uL (0.0-0.87); Eosinophils % 0.7 % (0.00-10.9); Hematocrit 25.3 VOL% (42.0-52.0); Hemoglobin 8.6 GM/DL (14.0-18.0); Immature Granulocytes % 0.4 %; Immature Granulocytes Absolute 0.04 #; Lymphocytes # 1.3 10*3/uL (1.4-4.0); Lymphocytes % 13.5 % (21.2-54.2); Mean Corpuscular Volume 87.8 FL (87-102); Mean Platelet Volume 12.2 FL (9.6-12.0); Monocytes % 8.8 % (1.7-12.7); Neutrophils % 76.2 % (38.7-73.9); Platelet Count 40 T/CUMM (130-400); Red Blood Count 2.88 MC/CUMM (3.8-5.5); Red Cell Distribution Width 16.8 % (9.3-17.3)
[2021-09-30] MEDS: AMPICILLIN INJ 2,000 MG in SODIUM CHLORIDE 0.9% 100 ML IV SCH ×3 (01:37→14:35)
[2021-09-30] MEDS: LACTULOSE 20 GM/30 ML UDCUP PO SCH ×6 (01:37→20:31)
[2021-09-30 03:48] LABS: ABG Base Excess -1.7 MMOL/L (-2.5-2.5); ABG Oxygen Saturation 98.2 % (95-100); ABG PCO2 28.5 MM HG (35-48); ABG PO2 91.3 MM HG (80-95)
[2021-09-30 04:05] LABS: Basophils # 0.1 10*3/uL (0.0-0.2); Basophils % 0.4 % (0.0-0.8); Eosinophils # 0.1 10*3/uL (0.0-0.87); Eosinophils % 0.6 % (0.00-10.9); Hemoglobin 7.2 GM/DL (14.0-18.0); Lymphocytes # 1.5 10*3/uL (1.4-4.0); Lymphocytes % 10.5 % (21.2-54.2); Mean Platelet Volume 11.4 FL (9.6-12.0); Monocytes % 8.4 % (1.7-12.7); Neutrophils % 79.4 % (38.7-73.9); Platelet Count 51 T/CUMM (130-400); Red Cell Distribution Width 16.5 % (9.3-17.3); White Blood Count 13.8 T/CUMM (4-12)
[2021-09-30 04:13] LABS: INR 2.8
[2021-09-30 04:14] LABS: PT Patient Result 28.6 SECS (10.5-12.0)
[2021-09-30 04:32] LABS: Eosinophils 2 % (0-10); Hypochromia 1+; Lymphocytes 4 % (20-55); Microcytosis 1+; Platelet Estimate Decreased; Segmented Neutrophils 85 % (50-85)
[2021-09-30 04:41] LABS: Albumin 2.6 G/DL (3.4-5.0); Calcium 8.7 MG/DL (8.5-10.1); Osmolality,Calculated 288.5 MOS/KG (273-304); Potassium 4.6 MMOL/L (3.5-5.1); Total Protein 4.9 G/DL (6.4-8.2)
[2021-09-30] MEDS: ALBUMIN 5% 25 GM/500 ML VIAL IV SCH ×3 (05:07→20:32)
[2021-09-30] MEDS ORDERED: SODIUM CHLORIDE 0.9% 1,000 ML IV PRN ×2 (08:27→23:41)
[2021-09-30] MEDS: MENTHOL/ZINC OXIDE OINT 71 GM JAR TOP SCH ×2 (09:52→20:32)
[2021-09-30] MEDS: THIAMINE 100 MG TABLET PO SCH (09:53)
[2021-09-30] MEDS: levETIRAcetam 500 MG TABLET PO SCH ×2 (09:53→20:31)
[2021-09-30] MEDS: NICOTINE 21 MG/24 HR PATCH TRANSDERM SCH (09:53)
[2021-09-30] MEDS: MIDODRINE 5 MG TABLET PO SCH ×3 (09:53→20:31)
[2021-09-30] MEDS: MULTIVITAMIN (INTRINSIC) CAPSULE PO SCH (09:53)
[2021-09-30] MEDS: FOLIC ACID 1 MG TABLET PO SCH (09:53)
[2021-09-30] MEDS: PANTOPRAZOLE 40 MG VIAL IV SCH ×2 (09:54→20:31)
[2021-09-30 14:56] LABS: Basophils % 0.3 % (0.0-0.8); Eosinophils % 0.4 % (0.00-10.9); Immature Granulocytes % 0.5 %; Immature Granulocytes Absolute 0.05 #; Lymphocytes # 1.1 10*3/uL (1.4-4.0); Lymphocytes % 10.9 % (21.2-54.2); Mean Corpuscular HGB Conc 35.5 GM/DL (32-36); Mean Corpuscular Volume 87.1 FL (87-102); Mean Platelet Volume 10.8 FL (9.6-12.0); Monocytes % 8.7 % (1.7-12.7); NRBC # 0.02 10*3/uL; Neutrophils % 79.2 % (38.7-73.9); Platelet Count 41 T/CUMM (130-400); Red Blood Count 1.78 MC/CUMM (3.8-5.5); Red Cell Distribution Width 16.2 % (9.3-17.3); White Blood Count 9.8 T/CUMM (4-12)
[2021-09-30 14:59] LABS: Hematocrit 15.5 VOL% (42.0-52.0); Hemoglobin 5.5 GM/DL (14.0-18.0)
[2021-09-30 15:41] LABS: Band Neutrophils 9 % (0-10); Lymphocytes 6 % (20-55); Nucleated Red Blood Cells 1 (0-5); Segmented Neutrophils 81 % (50-85); Total Cells Counted 100
[2021-09-30 15:42] LABS: Anisocytosis 2+; Microcytosis 2+
[2021-09-30 15:43] LABS: Acanthocytes 2+; Dohle Bodies 1+; Macrocytosis 1+; Platelet Estimate Decreased; Poikilocytosis 2+; Polychromasia Few; Schistocytes Few; Target Cells Few; Toxic Granulation 1+
[2021-09-30] MEDS: RIFAXIMIN 550 MG TABLET PO SCH (20:31)
[2021-09-30 23:26] LABS: Hematocrit 19.6 VOL% (42.0-52.0); Hemoglobin 6.7 GM/DL (14.0-18.0)
[2021-09-30] MEDS: LORazepam 2 MG/1 ML VIAL IV PRN (23:37)
[2021-10-01] MEDS: AMPICILLIN INJ 2,000 MG in SODIUM CHLORIDE 0.9% 100 ML IV SCH ×2 (01:36→14:15)
[2021-10-01] MEDS: LACTULOSE 20 GM/30 ML UDCUP PO SCH ×4 (01:36→17:02)
[2021-10-01 03:57] LABS: Basophils % 0.3 % (0.0-0.8); Eosinophils % 0.2 % (0.00-10.9); Hematocrit 19.3 VOL% (42.0-52.0); Hemoglobin 6.6 GM/DL (14.0-18.0); Immature Granulocytes % 0.3 %; Immature Granulocytes Absolute 0.03 #; Lymphocytes % 11.4 % (21.2-54.2); Mean Corpuscular HGB Conc 34.2 GM/DL (32-36); Mean Corpuscular Volume 88.9 FL (87-102); Monocytes % 9.8 % (1.7-12.7); NRBC # 0.02 10*3/uL; Red Blood Count 2.17 MC/CUMM (3.8-5.5); Red Cell Distribution Width 15.5 % (9.3-17.3); White Blood Count 9.2 T/CUMM (4-12)
[2021-10-01 04:02] LABS: Platelet Count 38 T/CUMM (130-400)
[2021-10-01] MEDS ORDERED: SODIUM CHLORIDE 0.9% 1,000 ML IV PRN ×2 (04:10→16:33)
[2021-10-01] MEDS ORDERED: CALCIUM GLUCONATE RIDER 1,000 MG/50 ML PREMIX IV ONE (04:10)
[2021-10-01 04:11] LABS: Arterial Base Excess iSTAT -2 MMOL/L (-2.5-2.5); Arterial Bicarbonate iSTAT 21.1 MMOL/L (20-26); Arterial O2 Saturation iSTAT 88 % (95-100); Arterial PCO2 iSTAT 26 MM HG (35-48); Arterial PO2 iSTAT 48 MM HG (80-95); Arterial Total CO2 iSTAT 22 MMO/L (23-27); Arterial pH iSTAT 7.515 (7.35-7.45)
[2021-10-01 04:21] LABS: Albumin 2.4 G/DL (3.4-5.0); Calcium 8.7 MG/DL (8.5-10.1); Osmolality,Calculated 297.3 MOS/KG (273-304); Potassium 4.6 MMOL/L (3.5-5.1); Total Protein 4.7 G/DL (6.4-8.2)
[2021-10-01 04:26] LABS: Bilirubin,Total 23.7 MG/DL (0.20-1.00)
[2021-10-01 04:28] LABS: Eosinophils 1 % (0-10); Lymphocytes 8 % (20-55); Platelet Estimate Decreased; Segmented Neutrophils 84 % (50-85); Total Cells Counted 100
[2021-10-01 04:29] LABS: Hypochromia Slight; Microcytosis Slight
[2021-10-01] MEDS: ALBUMIN 5% 25 GM/500 ML VIAL IV SCH ×3 (05:08→21:25)
[2021-10-01 08:23] LABS: INR 2.3; PT Patient Result 24.2 SECS (10.5-12.0)
[2021-10-01] MEDS: RIFAXIMIN 550 MG TABLET PO SCH ×2 (08:57→21:23)
[2021-10-01] MEDS: levETIRAcetam 500 MG TABLET PO SCH ×2 (08:57→21:23)
[2021-10-01] MEDS: MULTIVITAMIN (INTRINSIC) CAPSULE PO SCH (08:57)
[2021-10-01] MEDS: MIDODRINE 5 MG TABLET PO SCH ×3 (08:58→21:23)
[2021-10-01] MEDS: FOLIC ACID 1 MG TABLET PO SCH (08:58)
[2021-10-01] MEDS: THIAMINE 100 MG TABLET PO SCH (08:58)
[2021-10-01] MEDS: PANTOPRAZOLE 40 MG VIAL IV SCH ×2 (08:58→21:24)
[2021-10-01] MEDS: NICOTINE 21 MG/24 HR PATCH TRANSDERM SCH (08:59)
[2021-10-01] MEDS: MENTHOL/ZINC OXIDE OINT 71 GM JAR TOP SCH ×2 (09:07→21:25)
[2021-10-01 10:06] LABS: Arterial Base Excess iSTAT 0 MMOL/L (-2.5-2.5); Arterial Bicarbonate iSTAT 23.3 MMOL/L (20-26); Arterial O2 Saturation iSTAT 100 % (95-100); Arterial PCO2 iSTAT 28 MM HG (35-48); Arterial PO2 iSTAT 203 MM HG (80-95); Arterial Total CO2 iSTAT 24 MMO/L (23-27)
[2021-10-01] MEDS: MIDAZOLAM 100 MG in SODIUM CHLORIDE 0.9% 80 ML IV PRN (15:10)
[2021-10-01 16:07] LABS: Basophils % 0.3 % (0.0-0.8); Eosinophils # 0.1 10*3/uL (0.0-0.87); Eosinophils % 0.8 % (0.00-10.9); Hematocrit 20.4 VOL% (42.0-52.0); Hemoglobin 7.3 GM/DL (14.0-18.0); Immature Granulocytes % 0.3 %; Immature Granulocytes Absolute 0.02 #; Lymphocytes # 0.6 10*3/uL (1.4-4.0); Lymphocytes % 8.9 % (21.2-54.2); Mean Corpuscular HGB Conc 35.8 GM/DL (32-36); Mean Corpuscular Volume 86.1 FL (87-102); Mean Platelet Volume 11.1 FL (9.6-12.0); Neutrophils % 84.7 % (38.7-73.9); Red Blood Count 2.37 MC/CUMM (3.8-5.5); Red Cell Distribution Width 14.8 % (9.3-17.3); White Blood Count 6.6 T/CUMM (4-12)
[2021-10-01 16:14] LABS: Platelet Count 26 T/CUMM (130-400)
[2021-10-01 17:26] LABS: Platelet Estimate Decreased
[2021-10-01 20:17] LABS: Basophils % 0.5 % (0.0-0.8); Eosinophils # 0.1 10*3/uL (0.0-0.87); Eosinophils % 0.8 % (0.00-10.9); Hematocrit 18.8 VOL% (42.0-52.0); Hemoglobin 6.8 GM/DL (14.0-18.0); Immature Granulocytes % 0.9 %; Immature Granulocytes Absolute 0.06 #; Lymphocytes # 0.8 10*3/uL (1.4-4.0); Lymphocytes % 11.5 % (21.2-54.2); Mean Corpuscular HGB Conc 36.2 GM/DL (32-36); Mean Corpuscular Volume 89.5 FL (87-102); Mean Platelet Volume 10.1 FL (9.6-12.0); Monocytes % 6.9 % (1.7-12.7); NRBC # 0.04 10*3/uL; Neutrophils % 79.4 % (38.7-73.9); Red Cell Distribution Width 15.9 % (9.3-17.3); White Blood Count 6.6 T/CUMM (4-12)
[2021-10-01 20:25] LABS: Platelet Count 26 T/CUMM (130-400)
[2021-10-01 20:39] LABS: Band Neutrophils 1 % (0-10); Lymphocytes 7 % (20-55); Segmented Neutrophils 86 % (50-85); Total Cells Counted 100
[2021-10-01 20:40] LABS: Platelet Estimate Decreased
[2021-10-02] MEDS: LACTULOSE 20 GM/30 ML UDCUP PO SCH ×3 (00:29→17:03)
[2021-10-02] MEDS: AMPICILLIN INJ 2,000 MG in SODIUM CHLORIDE 0.9% 100 ML IV SCH (02:58)
[2021-10-02 03:58] LABS: Arterial Base Excess iSTAT 2 MMOL/L (-2.5-2.5); Arterial O2 Saturation iSTAT 99 % (95-100); Arterial PCO2 iSTAT 31 MM HG (35-48); Arterial PO2 iSTAT 128 MM HG (80-95); Arterial Total CO2 iSTAT 26 MMO/L (23-27); Arterial pH iSTAT 7.512 (7.35-7.45)
[2021-10-02] MEDS: ALBUMIN 5% 25 GM/500 ML VIAL IV SCH ×3 (06:00→21:12)
[2021-10-02 06:45] LABS: Basophils # 0.1 10*3/uL (0.0-0.2); Basophils % 0.6 % (0.0-0.8); Eosinophils # 0.1 10*3/uL (0.0-0.87); Eosinophils % 1.2 % (0.00-10.9); Hematocrit 24.9 VOL% (42.0-52.0); Hemoglobin 8.8 GM/DL (14.0-18.0); Immature Granulocytes % 0.5 %; Immature Granulocytes Absolute 0.04 #; Lymphocytes # 0.9 10*3/uL (1.4-4.0); Lymphocytes % 11.3 % (21.2-54.2); Mean Corpuscular HGB Conc 35.3 GM/DL (32-36); Mean Corpuscular Volume 87.7 FL (87-102); Mean Platelet Volume 10.9 FL (9.6-12.0); Monocytes % 11.8 % (1.7-12.7); Neutrophils % 74.6 % (38.7-73.9); Red Blood Count 2.84 MC/CUMM (3.8-5.5); Red Cell Distribution Width 14.9 % (9.3-17.3); White Blood Count 7.8 T/CUMM (4-12)
[2021-10-02 06:53] LABS: Platelet Count 31 T/CUMM (130-400)
[2021-10-02 07:02] LABS: INR 2.2; PT Patient Result 23.1 SECS (10.5-12.0)
[2021-10-02 07:03] LABS: Albumin 2.3 G/DL (3.4-5.0); Calcium 8.6 MG/DL (8.5-10.1); Osmolality,Calculated 286.7 MOS/KG (273-304); Potassium 3.9 MMOL/L (3.5-5.1); Total Protein 4.9 G/DL (6.4-8.2)
[2021-10-02 07:10] LABS: Bilirubin,Total 24.1 MG/DL (0.20-1.00)
[2021-10-02 07:11] LABS: Eosinophils 3 % (0-10); Hypochromia 1+; Lymphocytes 5 % (20-55); Metamyelocytes 1 %; Nucleated Red Blood Cells 1 (0-5); Segmented Neutrophils 81 % (50-85); Total Cells Counted 100
[2021-10-02 07:12] LABS: Anisocytosis 1+; Microcytosis 1+; Platelet Estimate Decreased; Polychromasia Slight
[2021-10-02] MEDS: MIDODRINE 5 MG TABLET PO SCH ×3 (08:57→21:14)
[2021-10-02] MEDS: levETIRAcetam 500 MG TABLET PO SCH ×2 (08:57→21:12)
[2021-10-02] MEDS: MULTIVITAMIN (INTRINSIC) CAPSULE PO SCH (08:57)
[2021-10-02] MEDS: RIFAXIMIN 550 MG TABLET PO SCH ×2 (08:57→21:13)
[2021-10-02] MEDS: NICOTINE 21 MG/24 HR PATCH TRANSDERM SCH (08:58)
[2021-10-02] MEDS: FOLIC ACID 1 MG TABLET PO SCH (08:58)
[2021-10-02] MEDS: PANTOPRAZOLE 40 MG VIAL IV SCH ×2 (08:58→21:13)
[2021-10-02] MEDS: MENTHOL/ZINC OXIDE OINT 71 GM JAR TOP SCH ×2 (08:58→21:12)
[2021-10-02] MEDS: THIAMINE 100 MG TABLET PO SCH (08:58)
[2021-10-02] MEDS: PHYTONADIONE 10 MG/1 ML AMP SUBCUT SCH (09:48)
[2021-10-02] MEDS: MIDAZOLAM 100 MG in SODIUM CHLORIDE 0.9% 80 ML IV PRN (22:25)
[2021-10-02 22:46] LABS: Basophils # 0.1 10*3/uL (0.0-0.2); Basophils % 0.5 % (0.0-0.8); Eosinophils # 0.1 10*3/uL (0.0-0.87); Eosinophils % 1.3 % (0.00-10.9); Hemoglobin 8.8 GM/DL (14.0-18.0); Immature Granulocytes % 0.7 %; Immature Granulocytes Absolute 0.06 #; Lymphocytes # 1.1 10*3/uL (1.4-4.0); Lymphocytes % 11.4 % (21.2-54.2); Mean Corpuscular HGB Conc 35.2 GM/DL (32-36); Mean Corpuscular Volume 86.5 FL (87-102); Mean Platelet Volume 10.8 FL (9.6-12.0); Monocytes % 13.2 % (1.7-12.7); NRBC # 0.02 10*3/uL; Neutrophils % 72.9 % (38.7-73.9); Red Blood Count 2.89 MC/CUMM (3.8-5.5); Red Cell Distribution Width 15.8 % (9.3-17.3); White Blood Count 9.2 T/CUMM (4-12)
[2021-10-02 22:48] LABS: Platelet Count 35 T/CUMM (130-400)
[2021-10-02 23:13] LABS: Lymphocytes 7 % (20-55); Platelet Estimate Decreased; Segmented Neutrophils 88 % (50-85); Total Cells Counted 100
[2021-10-03] MEDS: LACTULOSE 20 GM/30 ML UDCUP PO SCH ×3 (01:11→17:38)
[2021-10-03 03:43] LABS: Arterial Base Excess iSTAT 0 MMOL/L (-2.5-2.5); Arterial Bicarbonate iSTAT 23.7 MMOL/L (20-26); Arterial O2 Saturation iSTAT 99 % (95-100); Arterial PCO2 iSTAT 32 MM HG (35-48); Arterial PO2 iSTAT 143 MM HG (80-95); Arterial Total CO2 iSTAT 25 MMO/L (23-27); Arterial pH iSTAT 7.476 (7.35-7.45)
[2021-10-03 04:53] LABS: Basophils # 0.1 10*3/uL (0.0-0.2); Basophils % 0.6 % (0.0-0.8); Eosinophils # 0.1 10*3/uL (0.0-0.87); Eosinophils % 1.4 % (0.00-10.9); Hematocrit 25.4 VOL% (42.0-52.0); Hemoglobin 8.8 GM/DL (14.0-18.0); Immature Granulocytes % 0.6 %; Immature Granulocytes Absolute 0.05 #; Lymphocytes # 1.3 10*3/uL (1.4-4.0); Mean Corpuscular HGB Conc 34.6 GM/DL (32-36); Mean Corpuscular Volume 87.6 FL (87-102); Mean Platelet Volume 11.3 FL (9.6-12.0); Monocytes % 14.1 % (1.7-12.7); NRBC # 0.02 10*3/uL; Neutrophils % 69.3 % (38.7-73.9); Red Cell Distribution Width 16.8 % (9.3-17.3); White Blood Count 9.1 T/CUMM (4-12)
[2021-10-03 04:55] LABS: Platelet Count 39 T/CUMM (130-400)
[2021-10-03 05:01] LABS: INR 2.2; PT Patient Result 23.6 SECS (10.5-12.0)
[2021-10-03 05:09] LABS: Albumin 2.4 G/DL (3.4-5.0); Calcium 8.8 MG/DL (8.5-10.1); Osmolality,Calculated 291.7 MOS/KG (273-304); Potassium 4.1 MMOL/L (3.5-5.1)
[2021-10-03 05:10] LABS: Bilirubin,Total 24.9 MG/DL (0.20-1.00)
[2021-10-03 05:11] LABS: Anisocytosis 1+; Burr Cells 1+; Platelet Estimate Decreased; Target Cells 1+
[2021-10-03 05:12] LABS: Macrocytosis 1+; Polychromasia 1+
[2021-10-03] MEDS: ALBUMIN 5% 25 GM/500 ML VIAL IV SCH ×3 (05:57→20:00)
[2021-10-03] MEDS: FOLIC ACID 1 MG TABLET PO SCH (08:59)
[2021-10-03] MEDS: MIDODRINE 5 MG TABLET PO SCH ×3 (08:59→20:01)
[2021-10-03] MEDS: RIFAXIMIN 550 MG TABLET PO SCH ×2 (08:59→20:01)
[2021-10-03] MEDS: MULTIVITAMIN (INTRINSIC) CAPSULE PO SCH (08:59)
[2021-10-03] MEDS: levETIRAcetam 500 MG TABLET PO SCH ×2 (09:00→20:01)
[2021-10-03] MEDS: PANTOPRAZOLE 40 MG VIAL IV SCH ×2 (09:02→20:01)
[2021-10-03] MEDS: MENTHOL/ZINC OXIDE OINT 71 GM JAR TOP SCH ×2 (09:03→20:01)
[2021-10-03] MEDS: THIAMINE 100 MG TABLET PO SCH (09:03)
[2021-10-03] MEDS: NICOTINE 21 MG/24 HR PATCH TRANSDERM SCH (09:15)
[2021-10-03] MEDS: PHYTONADIONE 10 MG/1 ML AMP SUBCUT SCH (09:33)
[2021-10-04] MEDS: LORazepam 2 MG/1 ML VIAL IV PRN (00:19)
[2021-10-04] MEDS: LACTULOSE 20 GM/30 ML UDCUP PO SCH ×3 (01:13→17:56)
[2021-10-04 03:58] LABS: ABG Base Excess 0.6 MMOL/L (-2.5-2.5); ABG Oxygen Saturation 96.5 % (95-100); ABG PH 7.416 (7.35-7.45); ABG PO2 83.3 MM HG (80-95); ABG TCO2 22.7 MMOL/L (23-27)
[2021-10-04 04:14] LABS: Basophils % 0.5 % (0.0-0.8); Eosinophils # 0.1 10*3/uL (0.0-0.87); Eosinophils % 1.3 % (0.00-10.9); Hematocrit 23.9 VOL% (42.0-52.0); Hemoglobin 8.1 GM/DL (14.0-18.0); Immature Granulocytes % 0.8 %; Immature Granulocytes Absolute 0.07 #; Lymphocytes # 1.1 10*3/uL (1.4-4.0); Lymphocytes % 13.1 % (21.2-54.2); Mean Corpuscular HGB Conc 33.9 GM/DL (32-36); Mean Corpuscular Volume 89.2 FL (87-102); Mean Platelet Volume 12.4 FL (9.6-12.0); Monocytes % 19.3 % (1.7-12.7); NRBC # 0.02 10*3/uL; Red Blood Count 2.68 MC/CUMM (3.8-5.5); Red Cell Distribution Width 18.4 % (9.3-17.3); White Blood Count 8.6 T/CUMM (4-12)
[2021-10-04 04:16] LABS: Platelet Count 16 T/CUMM (130-400)
[2021-10-04 04:22] LABS: INR 2.2; PT Patient Result 23.3 SECS (10.5-12.0)
[2021-10-04] MEDS: ALBUMIN 5% 25 GM/500 ML VIAL IV SCH ×3 (04:28→20:02)
[2021-10-04] MEDS ORDERED: SODIUM CHLORIDE 0.9% 1,000 ML IV PRN ×2 (04:38→07:19)
[2021-10-04 04:39] LABS: Albumin 2.5 G/DL (3.4-5.0); Calcium 8.5 MG/DL (8.5-10.1); Osmolality,Calculated 288.5 MOS/KG (273-304); Total Protein 5.2 G/DL (6.4-8.2)
[2021-10-04 04:41] LABS: Bilirubin,Total 23.1 MG/DL (0.20-1.00); Hypochromia 1+; Lymphocytes 6 % (20-55); Microcytosis Slight; Platelet Estimate Decreased; Segmented Neutrophils 78 % (50-85); Total Cells Counted 100
[2021-10-04] MEDS: PANTOPRAZOLE 40 MG VIAL IV SCH ×2 (08:01→20:03)
[2021-10-04] MEDS: FOLIC ACID 1 MG TABLET PO SCH (08:01)
[2021-10-04] MEDS: MENTHOL/ZINC OXIDE OINT 71 GM JAR TOP SCH ×2 (08:01→20:03)
[2021-10-04] MEDS: THIAMINE 100 MG TABLET PO SCH (08:01)
[2021-10-04] MEDS: NICOTINE 21 MG/24 HR PATCH TRANSDERM SCH (08:01)
[2021-10-04] MEDS: MULTIVITAMIN (INTRINSIC) CAPSULE PO SCH (08:01)
[2021-10-04] MEDS: MIDODRINE 5 MG TABLET PO SCH ×3 (08:01→20:03)
[2021-10-04] MEDS: levETIRAcetam 500 MG TABLET PO SCH ×2 (08:01→20:03)
[2021-10-04] MEDS: RIFAXIMIN 550 MG TABLET PO SCH ×2 (08:01→20:03)
[2021-10-04] MEDS: MIDAZOLAM 100 MG in SODIUM CHLORIDE 0.9% 80 ML IV PRN (13:44)
[2021-10-05] MEDS: LACTULOSE 20 GM/30 ML UDCUP PO SCH ×3 (00:43→17:10)
[2021-10-05 03:36] LABS: Basophils % 0.6 % (0.0-0.8); Eosinophils # 0.1 10*3/uL (0.0-0.87); Hematocrit 22.7 VOL% (42.0-52.0); Hemoglobin 7.5 GM/DL (14.0-18.0); Immature Granulocytes % 1.1 %; Immature Granulocytes Absolute 0.08 #; Lymphocytes % 14.2 % (21.2-54.2); Mean Corpuscular Volume 92.7 FL (87-102); Mean Platelet Volume 12.9 FL (9.6-12.0); Monocytes % 22.1 % (1.7-12.7); Red Blood Count 2.45 MC/CUMM (3.8-5.5); Red Cell Distribution Width 19.1 % (9.3-17.3)
[2021-10-05 03:41] LABS: Platelet Count 21 T/CUMM (130-400)
[2021-10-05 03:44] LABS: INR 2.1
[2021-10-05 03:45] LABS: PT Patient Result 22.2 SECS (10.5-12.0)
[2021-10-05] MEDS ORDERED: SODIUM CHLORIDE 0.9% 1,000 ML IV PRN (03:54)
[2021-10-05 04:02] LABS: Albumin 2.5 G/DL (3.4-5.0); Calcium 8.9 MG/DL (8.5-10.1); Osmolality,Calculated 290.5 MOS/KG (273-304); Potassium 3.7 MMOL/L (3.5-5.1); Total Protein 5.3 G/DL (6.4-8.2)
[2021-10-05 04:04] LABS: Bilirubin,Total 24.8 MG/DL (0.20-1.00)
[2021-10-05 04:18] LABS: Atypical Lymphocytes S; Lymphocytes 9 % (20-55); Platelet Estimate Decreased; Polychromasia Slight; Segmented Neutrophils 69 % (50-85); Total Cells Counted 100
[2021-10-05 04:49] LABS: ABG Base Excess -0.4 MMOL/L (-2.5-2.5); ABG HCO3 24.1 MMOL/L (20-26); ABG PCO2 39.4 MM HG (35-48); ABG PH 7.398 (7.35-7.45); ABG PO2 86.5 MM HG (80-95); ABG TCO2 22.8 MMOL/L (23-27)
[2021-10-05] MEDS: ALBUMIN 5% 25 GM/500 ML VIAL IV SCH ×3 (05:10→20:29)
[2021-10-05] MEDS: NICOTINE 21 MG/24 HR PATCH TRANSDERM SCH (09:36)
[2021-10-05] MEDS: FOLIC ACID 1 MG TABLET PO SCH (09:36)
[2021-10-05] MEDS: PANTOPRAZOLE 40 MG VIAL IV SCH ×2 (09:36→20:30)
[2021-10-05] MEDS: MULTIVITAMIN (INTRINSIC) CAPSULE PO SCH (09:37)
[2021-10-05] MEDS: THIAMINE 100 MG TABLET PO SCH (09:37)
[2021-10-05] MEDS: RIFAXIMIN 550 MG TABLET PO SCH ×2 (09:37→20:30)
[2021-10-05] MEDS: MENTHOL/ZINC OXIDE OINT 71 GM JAR TOP SCH ×2 (09:37→20:30)
[2021-10-05] MEDS: levETIRAcetam 500 MG TABLET PO SCH ×2 (09:37→20:30)
[2021-10-05] MEDS: MIDODRINE 5 MG TABLET PO SCH ×3 (09:37→20:30)
[2021-10-05] MEDS ORDERED: DEXMEDETOMIDINE 200 MCG in SODIUM CHLORIDE 0.9% 48 ML IV PRN (12:17)
[2021-10-05] MEDS: MIDAZOLAM 100 MG in SODIUM CHLORIDE 0.9% 80 ML IV PRN (18:48)
[2021-10-05 20:19] LABS: Basophils % 0.4 % (0.0-0.8); Eosinophils # 0.1 10*3/uL (0.0-0.87); Eosinophils % 1.5 % (0.00-10.9); Hematocrit 21.2 VOL% (42.0-52.0); Hemoglobin 6.9 GM/DL (14.0-18.0); Immature Granulocytes % 2.1 %; Immature Granulocytes Absolute 0.11 #; Lymphocytes # 0.7 10*3/uL (1.4-4.0); Mean Corpuscular HGB Conc 32.5 GM/DL (32-36); Mean Corpuscular Volume 93.4 FL (87-102); Mean Platelet Volume 12.1 FL (9.6-12.0); Monocytes % 17.6 % (1.7-12.7); NRBC # 0.02 10*3/uL; Neutrophils % 64.4 % (38.7-73.9); Red Blood Count 2.27 MC/CUMM (3.8-5.5); Red Cell Distribution Width 19.6 % (9.3-17.3); White Blood Count 5.3 T/CUMM (4-12)
[2021-10-05 20:22] LABS: Platelet Count 25 T/CUMM (130-400)
[2021-10-05 22:12] LABS: Band Neutrophils 5 % (0-10); Eosinophils 4 % (0-10); Lymphocytes 26 % (20-55); Nucleated Red Blood Cells 2 (0-5); Segmented Neutrophils 63 % (50-85); Total Cells Counted 100
[2021-10-05 22:13] LABS: Anisocytosis 2+; Hypochromia 2+; Microcytosis 2+; Platelet Estimate Decreased; Poikilocytosis 2+
[2021-10-06] MEDS: LACTULOSE 20 GM/30 ML UDCUP PO SCH ×3 (01:08→16:20)
[2021-10-06 04:26] LABS: Basophils % 0.5 % (0.0-0.8); Eosinophils # 0.1 10*3/uL (0.0-0.87); Hematocrit 19.9 VOL% (42.0-52.0); Hemoglobin 6.6 GM/DL (14.0-18.0); Immature Granulocytes % 2.4 %; Immature Granulocytes Absolute 0.14 #; Lymphocytes # 0.9 10*3/uL (1.4-4.0); Lymphocytes % 14.4 % (21.2-54.2); Mean Corpuscular HGB Conc 33.2 GM/DL (32-36); Mean Corpuscular Volume 93.4 FL (87-102); Mean Platelet Volume 12.5 FL (9.6-12.0); NRBC # 0.02 10*3/uL; Neutrophils % 58.7 % (38.7-73.9); Red Blood Count 2.13 MC/CUMM (3.8-5.5); Red Cell Distribution Width 19.4 % (9.3-17.3); White Blood Count 5.9 T/CUMM (4-12)
[2021-10-06 04:28] LABS: Platelet Count 25 T/CUMM (130-400)
[2021-10-06 04:41] LABS: Albumin 2.4 G/DL (3.4-5.0); Calcium 8.8 MG/DL (8.5-10.1); Osmolality,Calculated 292.5 MOS/KG (273-304); Potassium 3.8 MMOL/L (3.5-5.1); Total Protein 5.4 G/DL (6.4-8.2)
[2021-10-06 04:44] LABS: Bilirubin,Total 24.7 MG/DL (0.20-1.00); Eosinophils 1 % (0-10); Hypochromia 1+; Lymphocytes 15 % (20-55); Microcytosis 1+; Platelet Estimate Decreased; Segmented Neutrophils 63 % (50-85); Total Cells Counted 100
[2021-10-06 04:46] LABS: ABG Base Excess -0.6 MMOL/L (-2.5-2.5); ABG HCO3 23.9 MMOL/L (20-26); ABG PCO2 39.7 MM HG (35-48); ABG PH 7.392 (7.35-7.45); ABG PO2 83.6 MM HG (80-95); ABG TCO2 22.9 MMOL/L (23-27)
[2021-10-06] MEDS: ALBUMIN 5% 25 GM/500 ML VIAL IV SCH ×3 (04:46→20:13)
[2021-10-06] MEDS: RIFAXIMIN 550 MG TABLET PO SCH ×2 (08:48→20:13)
[2021-10-06] MEDS: MULTIVITAMIN (INTRINSIC) CAPSULE PO SCH (08:48)
[2021-10-06] MEDS: MIDODRINE 5 MG TABLET PO SCH ×3 (08:48→20:13)
[2021-10-06] MEDS: THIAMINE 100 MG TABLET PO SCH (08:48)
[2021-10-06] MEDS: FOLIC ACID 1 MG TABLET PO SCH (08:48)
[2021-10-06] MEDS: levETIRAcetam 500 MG TABLET PO SCH ×2 (08:48→20:13)
[2021-10-06] MEDS: NICOTINE 21 MG/24 HR PATCH TRANSDERM SCH (08:48)
[2021-10-06] MEDS: MENTHOL/ZINC OXIDE OINT 71 GM JAR TOP SCH ×2 (09:25→20:14)
[2021-10-06] MEDS: FAMOTIDINE 20 MG TABLET PO SCH ×2 (09:25→20:13)
[2021-10-07] MEDS: LACTULOSE 20 GM/30 ML UDCUP PO SCH ×3 (00:45→17:11)
[2021-10-07 03:51] LABS: Arterial Base Excess iSTAT 2 MMOL/L (-2.5-2.5); Arterial Bicarbonate iSTAT 25.4 MMOL/L (20-26); Arterial O2 Saturation iSTAT 95 % (95-100); Arterial PCO2 iSTAT 32 MM HG (35-48); Arterial PO2 iSTAT 70 MM HG (80-95); Arterial Total CO2 iSTAT 26 MMO/L (23-27); Arterial pH iSTAT 7.505 (7.35-7.45)
[2021-10-07 03:52] LABS: Basophils # 0.1 10*3/uL (0.0-0.2); Basophils % 0.6 % (0.0-0.8); Eosinophils # 0.2 10*3/uL (0.0-0.87); Eosinophils % 1.6 % (0.00-10.9); Hematocrit 18.5 VOL% (42.0-52.0); Immature Granulocytes % 3.6 %; Immature Granulocytes Absolute 0.34 #; Lymphocytes # 1.8 10*3/uL (1.4-4.0); Lymphocytes % 18.9 % (21.2-54.2); Mean Corpuscular Volume 93.4 FL (87-102); Mean Platelet Volume 12.3 FL (9.6-12.0); Monocytes % 21.1 % (1.7-12.7); NRBC # 0.03 10*3/uL; Neutrophils % 54.2 % (38.7-73.9); Red Blood Count 1.98 MC/CUMM (3.8-5.5); Red Cell Distribution Width 19.9 % (9.3-17.3); White Blood Count 9.3 T/CUMM (4-12)
[2021-10-07 03:54] LABS: Hemoglobin 6.1 GM/DL (14.0-18.0)
[2021-10-07 03:55] LABS: Platelet Count 32 T/CUMM (130-400)
[2021-10-07] MEDS ORDERED: SODIUM CHLORIDE 0.9% 1,000 ML IV PRN (03:55)
[2021-10-07 04:00] LABS: INR 2.1; PT Patient Result 22.8 SECS (10.5-12.0)
[2021-10-07] MEDS: ALBUMIN 5% 25 GM/500 ML VIAL IV SCH ×2 (04:04→14:17)
[2021-10-07 04:10] LABS: Band Neutrophils 2 % (0-10); Hypochromia 1+; Lymphocytes 13 % (20-55); Microcytosis 1+; Nucleated Red Blood Cells 1 (0-5); Platelet Estimate Decreased; Segmented Neutrophils 66 % (50-85); Total Cells Counted 100
[2021-10-07 04:15] LABS: Albumin 2.2 G/DL (3.4-5.0); Calcium 8.5 MG/DL (8.5-10.1); Osmolality,Calculated 288.5 MOS/KG (273-304); Potassium 4.1 MMOL/L (3.5-5.1); Total Protein 5.3 G/DL (6.4-8.2)
[2021-10-07 04:17] LABS: Bilirubin,Total 22.9 MG/DL (0.20-1.00)
[2021-10-07] MEDS: levETIRAcetam 500 MG TABLET PO SCH ×2 (09:02→20:05)
[2021-10-07] MEDS: MIDODRINE 5 MG TABLET PO SCH ×3 (09:02→20:05)
[2021-10-07] MEDS: FAMOTIDINE 20 MG TABLET PO SCH ×2 (09:02→20:05)
[2021-10-07] MEDS: MULTIVITAMIN (INTRINSIC) CAPSULE PO SCH (09:02)
[2021-10-07] MEDS: FOLIC ACID 1 MG TABLET PO SCH (09:03)
[2021-10-07] MEDS: RIFAXIMIN 550 MG TABLET PO SCH ×2 (09:03→20:05)
[2021-10-07] MEDS: MENTHOL/ZINC OXIDE OINT 71 GM JAR TOP SCH ×2 (09:04→20:04)
[2021-10-07] MEDS: NICOTINE 21 MG/24 HR PATCH TRANSDERM SCH (09:04)
[2021-10-07] MEDS: THIAMINE 100 MG TABLET PO SCH (09:04)
[2021-10-07 16:31] VITALS: BP 114/53
[2021-10-07 16:46] LABS: Hematocrit 24.7 VOL% (42.0-52.0); Hemoglobin 8.2 GM/DL (14.0-18.0)
[2021-10-07] MEDS: LORazepam 2 MG/1 ML VIAL IV PRN (17:03)
[2021-10-08] MEDS: LACTULOSE 20 GM/30 ML UDCUP PO SCH ×3 (00:36→18:01)
[2021-10-08 03:23] LABS: Basophils # 0.1 10*3/uL (0.0-0.2); Basophils % 0.6 % (0.0-0.8); Eosinophils # 0.1 10*3/uL (0.0-0.87); Eosinophils % 0.5 % (0.00-10.9); Hematocrit 22.1 VOL% (42.0-52.0); Hemoglobin 7.5 GM/DL (14.0-18.0); Immature Granulocytes % 2.6 %; Immature Granulocytes Absolute 0.38 #; Lymphocytes # 1.7 10*3/uL (1.4-4.0); Lymphocytes % 12.1 % (21.2-54.2); Mean Corpuscular HGB Conc 33.9 GM/DL (32-36); Mean Corpuscular Volume 90.2 FL (87-102); Mean Platelet Volume 11.4 FL (9.6-12.0); Monocytes % 17.6 % (1.7-12.7); NRBC # 0.03 10*3/uL; Neutrophils % 66.6 % (38.7-73.9); Platelet Count 60 T/CUMM (130-400); Red Blood Count 2.45 MC/CUMM (3.8-5.5); Red Cell Distribution Width 18.7 % (9.3-17.3); White Blood Count 14.4 T/CUMM (4-12)
[2021-10-08 03:31] LABS: PT Patient Result 21.1 SECS (10.5-12.0)
[2021-10-08 03:43] LABS: Lymphocytes 11 % (20-55); Platelet Estimate Decreased; Segmented Neutrophils 80 % (50-85); Total Cells Counted 100
[2021-10-08 03:56] LABS: Albumin 2.3 G/DL (3.4-5.0); Osmolality,Calculated 294.7 MOS/KG (273-304); Potassium 4.1 MMOL/L (3.5-5.1); Total Protein 5.6 G/DL (6.4-8.2)
[2021-10-08 04:00] LABS: Bilirubin,Total 25.2 MG/DL (0.20-1.00)
[2021-10-08 06:09] LABS: Arterial Base Excess iSTAT 0 MMOL/L (-2.5-2.5); Arterial Bicarbonate iSTAT 23.3 MMOL/L (20-26); Arterial O2 Saturation iSTAT 99 % (95-100); Arterial PCO2 iSTAT 30 MM HG (35-48); Arterial PO2 iSTAT 122 MM HG (80-95); Arterial Total CO2 iSTAT 24 MMO/L (23-27); Arterial pH iSTAT 7.497 (7.35-7.45)
[2021-10-08] MEDS: MIDODRINE 5 MG TABLET PO SCH ×3 (09:08→20:09)
[2021-10-08] MEDS: MULTIVITAMIN (INTRINSIC) CAPSULE PO SCH (09:08)
[2021-10-08] MEDS: FOLIC ACID 1 MG TABLET PO SCH (09:08)
[2021-10-08] MEDS: FAMOTIDINE 20 MG TABLET PO SCH ×2 (09:08→20:09)
[2021-10-08] MEDS: THIAMINE 100 MG TABLET PO SCH (09:09)
[2021-10-08] MEDS: levETIRAcetam 500 MG TABLET PO SCH ×2 (09:09→20:09)
[2021-10-08] MEDS: MENTHOL/ZINC OXIDE OINT 71 GM JAR TOP SCH ×2 (09:09→20:10)
[2021-10-08] MEDS: RIFAXIMIN 550 MG TABLET PO SCH ×2 (09:09→20:09)
[2021-10-08] MEDS: NICOTINE 21 MG/24 HR PATCH TRANSDERM SCH (10:16)
[2021-10-08] MEDS: LORazepam 2 MG/1 ML VIAL IV PRN (21:53)
[2021-10-08] MEDS ORDERED: DEXMEDETOMIDINE 400 MCG in SODIUM CHLORIDE 0.9% 96 ML IV PRN (22:08)
[2021-10-09] MEDS: LORazepam 2 MG/1 ML VIAL IV PRN (01:59)
[2021-10-09] MEDS ORDERED: MIDAZOLAM 100 MG in SODIUM CHLORIDE 0.9% 80 ML IV PRN (02:12)
[2021-10-09 03:32] LABS: Basophils % 0.1 % (0.0-0.8); Eosinophils % 0.2 % (0.00-10.9); Lymphocytes # 1.3 10*3/uL (1.4-4.0); Lymphocytes % 8.7 % (21.2-54.2); Mean Corpuscular HGB Conc 33.1 GM/DL (32-36); Mean Platelet Volume 12.4 FL (9.6-12.0); Monocytes % 12.3 % (1.7-12.7); NRBC # 0.08 10*3/uL; Neutrophils % 76.7 % (38.7-73.9); Platelet Count 53 T/CUMM (130-400); Red Blood Count 1.83 MC/CUMM (3.8-5.5); Red Cell Distribution Width 19.8 % (9.3-17.3); White Blood Count 14.6 T/CUMM (4-12)
[2021-10-09 03:35] LABS: Hemoglobin 5.7 GM/DL (14.0-18.0)
[2021-10-09 03:36] LABS: Hematocrit 17.2 VOL% (42.0-52.0)
[2021-10-09 03:48] LABS: Albumin 2.2 G/DL (3.4-5.0); Calcium 8.5 MG/DL (8.5-10.1); Osmolality,Calculated 292.5 MOS/KG (273-304); Potassium 4.5 MMOL/L (3.5-5.1); Total Protein 5.1 G/DL (6.4-8.2)
[2021-10-09 03:49] LABS: Band Neutrophils 4 % (0-10); Eosinophils 1 % (0-10); Lymphocytes 11 % (20-55); Nucleated Red Blood Cells 1 (0-5); Platelet Estimate Decreased; Segmented Neutrophils 74 % (50-85); Total Cells Counted 100
[2021-10-09 03:50] LABS: Bilirubin,Total 24.8 MG/DL (0.20-1.00); Hypochromia 1+; Microcytosis 1+
[2021-10-09 04:13] LABS: Arterial Base Excess iSTAT -8 MMOL/L (-2.5-2.5); Arterial Bicarbonate iSTAT 16.8 MMOL/L (20-26); Arterial O2 Saturation iSTAT 94 % (95-100); Arterial PCO2 iSTAT 30 MM HG (35-48); Arterial PO2 iSTAT 74 MM HG (80-95); Arterial Total CO2 iSTAT 18 MMO/L (23-27); Arterial pH iSTAT 7.353 (7.35-7.45)
[2021-10-09 04:51] LABS: INR 2.3; PT Patient Result 24.4 SECS (10.5-12.0)
[2021-10-09] MEDS ORDERED: LORazepam 2 MG/1 ML VIAL IV ONE ×2 (06:00→07:30)
[2021-10-09] MEDS ORDERED: NOREPINEPHRINE 4 MG/4 ML VIAL IV ONE (07:09)
[2021-10-09] MEDS: NOREPINEPHRINE 8 MG in SODIUM CHLORIDE 0.9% 242 ML IV PRN ×4 (07:15→18:43)
[2021-10-09] MEDS ORDERED: PHENYTOIN INJ 1,000 MG in SODIUM CHLORIDE 0.9% 100 ML IV ONE (08:21)
[2021-10-09] MEDS: RIFAXIMIN 550 MG TABLET PO SCH (08:34)
[2021-10-09] MEDS: MENTHOL/ZINC OXIDE OINT 71 GM JAR TOP SCH (08:34)
[2021-10-09] MEDS: FAMOTIDINE 20 MG TABLET PO SCH (08:34)
[2021-10-09] MEDS: THIAMINE 100 MG TABLET PO SCH (08:34)
[2021-10-09] MEDS: FOLIC ACID 1 MG TABLET PO SCH (08:34)
[2021-10-09] MEDS: MULTIVITAMIN (INTRINSIC) CAPSULE PO SCH (08:34)
[2021-10-09] MEDS: levETIRAcetam 500 MG TABLET PO SCH (08:34)
[2021-10-09] MEDS: MIDODRINE 5 MG TABLET PO SCH ×2 (08:34→18:00)
[2021-10-09] MEDS: LACTULOSE 20 GM/30 ML UDCUP PO SCH ×3 (08:34→18:19)
[2021-10-09] MEDS ORDERED: PHENYTOIN 100 MG/2 ML VIAL IV SCH (16:30)
[2021-10-09] MEDS ORDERED: NOREPINEPHRINE 16 MG in SODIUM CHLORIDE 0.9% 234 ML IV PRN (19:35)
[2021-10-09] MEDS ORDERED: EPINEPHrine 1 MG/10 ML SYRINGE IV ONE (21:31)
== END 2021-10-09 21:35 | disposition expired | DRG 279 ==
LOC: N.ED 16:19 → SUATTDRO 20:00 → N.EDINP 20:00 → N.TELEN 21:19 → N.CC 09-15 13:07 → N.5E 09-24 17:41 → N.CC 09-27 14:19
PROVIDERS: ADMIT Internal Medicine; ATTEND Internal Medicine